=== PATIENT | male | born 1965 | race Caucasian/White ===

== ENCOUNTER 2016-09-12 19:12 | Emergency (ER) | payer OTHER ==
[2016-09-12 19:19] VITALS: BP 157/80; PULSE 82; TEMP 97.3; BMI 30.2
[2016-09-12] MEDS ORDERED: KETOROLAC TROMETHAMINE 60 MG/2 ML VIAL IM ONE (19:40)
[2016-09-12] MEDS ORDERED: KETOROLAC TROMETHAMINE 60 MG/2 ML VIAL ONE (19:55)
--- NOTE | 2016-09-12 21:17 | PDOC ---
History of Present Illness - General Chief Complaint: Pain, Acute Stated Complaint: RT SHOULDER PAIN Time Seen by Provider: 09/12/16 19:31 History Source: Patient Exam Limitations: No Limitations - History of Present Illness Initial Comments: 09/12/16 21:12 reoccuring pain right shoulder with limited ROM; no trauma Occurred: reports: last week Past History - Past Medical History Allergies/Adverse Reactions: Allergies Allergy/AdvReac Type Severity Reaction Status Date / Time shellfish derived Allergy Intermediate Swelling Verified 09/12/16 19:19 almond oil Allergy Verified 09/12/16 19:19 blackwood flavor Allergy Verified 09/12/16 19:19 Home Medications: Ambulatory Orders Metformin HCl [Glucophage] 1,000 mg PO BID 08/19/15 CVA: Yes (2 strokes) Diabetes: Yes HTN: Yes Hypercholesterolemia: Yes - Immunization History Immunization Up to Date: Yes - Psycho/Social/Smoking Cessation Hx Anxiety: No Suicidal Ideation: No Smoking Status: No Smoking History: Never smoked Have you smoked in the past 12 months: No Number of Cigarettes Smoked Daily: 0 Hx Alcohol Use: No Drug/Substance Use Hx: No Substance Use Type: None Review of Systems - Review of Systems Constitutional: No: Symptoms Reported HEENTM: No: Symptoms Reported Respiratory: No: Symptoms reported Musculoskeletal: Yes: Joint Pain, Muscle Pain, Neck Pain, Joint Stiffness. No: Joint Swelling Integumentary: No: Symptoms Reported, Pruritus, Rash Neurological: No: Symptoms reported *Physical Exam - Vital Signs Last Vital Signs Temp Pulse Resp BP Pulse Ox 97.3 F L 82 20 157/80 99 09/12/16 19:16 09/12/16 19:16 09/12/16 19:16 09/12/16 19:16 09/12/16 19:16 - Physical Exam General Appearance: Yes: Appropriately Dressed. No: Apparent Distress HEENT: positive: TMs Normal, Pharynx Normal Neck: positive: Tender, Tender lateral (right lateral neck medial shoulder). negative: Tender midline Respiratory/Chest: positive: Lungs Clear. negative: Chest Tender Cardiovascular: negative: Regular Rhythm Musculoskeletal: positive: Muscle Spasm (right upper back; limited rom right shoulder with proximal humerus tenderness), Other Integumentary: negative: Erythema, Other ED Treatment Course - RADIOLOGY Radiology Studies Ordered: Category Date Time Status SHOULDER-RIGHT [RAD] Stat Radiology 09/12/16 19:38 Completed - Medications Given in the ED: ED Medications Discontinued Medications Generic Name Dose Route Start Last Admin Trade Name Suzanne PRN Reason Stop Dose Admin Ketorolac Tromethamine 60 mg 09/12/16 19:40 09/12/16 19:58 Toradol Injection - IM 09/12/16 19:41 60 mg ONCE ONE Administration Medical Decision Making - Medical Decision Making 09/12/16 21:15 feeling only slightly better post toradol; pt driving will treat with flexeril and naprosyn at home with ortho follow up *DC/Admit/Observation/Transfer Diagnosis at time of Disposition: Chronic shoulder pain Qualifiers: Laterality: right Qualified Code(s): M25.511 - Pain in right shoulder; G89.29 - Other chronic pain Cervical strain, acute Qualifiers: Encounter type: initial encounter Qualified Code(s): S16.1XXA - Strain of muscle, fascia and tendon at neck level, initial encounter - Discharge Dispostion Disposition: HOME Condition at time of disposition: Stable Admit: No - Referrals Referrals: Ranjith Thomas MD [Primary Care Provider] - Elmer Pierre MD [Staff Physician] - - Patient Instructions Additional Instructions: please call and follow up with dr pierre next week
== END 2016-09-12 21:21 | disposition home or self-care (01) ==
LOC: JERFT 19:12
PROC: 3E0233Z Introduction of Anti-inflammatory into Muscle, Percutaneous Approach (ICD-10-PCS; principal; 2016-09-12)
DX: S16.1XXA Strain of muscle, fascia and tendon at neck level, initial encounter (principal); M25.511 Pain in right shoulder; G89.29 Other chronic pain; I10 Essential (primary) hypertension; E11.9 Type 2 diabetes mellitus without complications; E78.00 Pure hypercholesterolemia, unspecified; Z86.73 Personal history of transient ischemic attack (TIA), and cerebral infarction without residual deficits; Z79.84 Long term (current) use of oral hypoglycemic drugs; X58.XXXA Exposure to other specified factors, initial encounter; Y93.9 Activity, unspecified; Y92.9 Unspecified place or not applicable
CPT/HCPCS: 73030-TC-RT; 96372; 99281-25

== ENCOUNTER 2016-11-04 17:02 | Inpatient (IN) | payer OTHER ==
[2016-11-04 17:11] VITALS: BMI 30.2
--- NOTE | 2016-11-04 17:20 | PDOC ---
History of Present Illness <GurmeetCate Nicole - Last Filed: 11/04/16 18:49> - General History Source: Patient, Family Exam Limitations: No Limitations - History of Present Illness Initial Comments: 11/04/16 17:50 The patient is a 51 year old male presenting with his son, with a significant past medical history of CVA (x2), diabetes, peripheral neuropathy, HTN and HLD, who presents to the emergency department with stroke like symptoms at 5:07pm. He notes that 40 minutes ago he started experiencing tongue numbness mostly on the left side and left lower extremity weakness. He states that he does have peripheral neuropathy and experiences weakness but not this severity. He reports that he took a couple of vitamins prior to the symptoms starting. He notes that he is having difficulty walking. The patient denies chest pain, shortness of breath, headache and dizziness. Allergies: Shellfish, almond oil and blackwood flavor Past surgical history: None reported Social history: No alcohol, tobacco or drug use reported <Alexandr Andrews - Last Filed: 11/04/16 19:41> - General Chief Complaint: CVA/TIA Stated Complaint: NUMBNESS Time Seen by Provider: 11/04/16 17:20 Past History - Past Medical History CVA: Yes (2 strokes) Diabetes: Yes HTN: Yes Hypercholesterolemia: Yes - Immunization History Immunization Up to Date: Yes - Psycho/Social/Smoking Cessation Hx Anxiety: No Suicidal Ideation: No Smoking Status: No Smoking History: Never smoked Have you smoked in the past 12 months: No Number of Cigarettes Smoked Daily: 0 Hx Alcohol Use: No Drug/Substance Use Hx: No Substance Use Type: None <GurmeetCatemoise Rivera - Last Filed: 11/04/16 18:49> <Alexandr Andrews - Last Filed: 11/04/16 19:41> - Past Medical History Allergies/Adverse Reactions: Allergies Allergy/AdvReac Type Severity Reaction Status Date / Time shellfish derived Allergy Intermediate Swelling Verified 11/04/16 17:06 almond oil Allergy Verified 11/04/16 17:06 blackwood flavor Allergy Verified 11/04/16 17:06 Home Medications: Ambulatory Orders Metformin HCl [Glucophage] 500 mg PO BID 08/19/15 Review of Systems - Review of Systems Able to Perform ROS?: Yes Comments:: 11/04/16 17:51 GENERAL/CONSTITUTIONAL: No fever or chills. No weakness. HEAD, EYES, EARS, NOSE AND THROAT: No change in vision. No ear pain or discharge. No sore throat. CARDIOVASCULAR: No chest pain or shortness of breath RESPIRATORY: No cough, wheezing, or hemoptysis. GASTROINTESTINAL: No nausea, vomiting, diarrhea or constipation. GENITOURINARY: No dysuria, frequency, or change in urination. MUSCULOSKELETAL: No joint or muscle swelling or pain. No neck or back pain. SKIN: No rash NEUROLOGIC: +Tongue numbness and left sided weakness mostly on the lower extremity. No headache, vertigo, loss of consciousness. ENDOCRINE: No increased thirst. No abnormal weight change HEMATOLOGIC/LYMPHATIC: No anemia, easy bleeding, or history of blood clots. ALLERGIC/IMMUNOLOGIC: No hives or skin allergy. <Alexandr Andrews - Last Filed: 11/04/16 19:41> *Physical Exam - Vital Signs Last Vital Signs Temp Pulse Resp BP Pulse Ox 97.4 F L 100 H 19 196/111 97 11/04/16 17:06 11/04/16 17:06 11/04/16 17:06 11/04/16 17:06 11/04/16 17:06 <Cate Levi - Last Filed: 11/04/16 18:49> - Vital Signs Last Vital Signs Temp Pulse Resp BP Pulse Ox 97.4 F L 100 H 19 196/111 97 11/04/16 17:06 11/04/16 17:06 11/04/16 17:06 11/04/16 17:06 11/04/16 17:06 - Physical Exam Comments: 11/04/16 17:51 GENERAL: Awake, alert, and fully oriented, in no acute distress HEAD: No signs of trauma, normocephalic, atraumatic EYES: PERRLA, EOMI, sclera anicteric, conjunctiva clear ENT: Auricles normal inspection, hearing grossly normal, nares patent, oropharynx clear without exudates. Moist mucosa NECK: Normal ROM, supple, no lymphadenopathy, JVD, or masses LUNGS: No distress, speaks full sentences, clear to auscultation bilaterally HEART: Regular rate and rhythm, normal S1 and S2, no murmurs, rubs or gallops, peripheral pulses normal and equal bilaterally. ABDOMEN: Soft, nontender, normoactive bowel sounds. No guarding, no rebound. No masses EXTREMITIES: Normal inspection, Normal range of motion, no edema. No clubbing or cyanosis. NEUROLOGICAL: Cranial nerves II through XII grossly intact. Normal speech. Referred to NIHSS. SKIN: Warm, Dry, normal turgor, no rashes or lesions noted. <DarrylAlexandr Tere - Last Filed: 11/04/16 19:41> NIH Stroke Scale - Last Known Well Date/Time & Onset Date Last Known Well: 11/04/16 Time Last Known Well: 16:25 - Initial Evaluation Level of consciousness: Alert Ask patient the month and their age: Answers both correctly Ask patient to open & close eyes; make fist and let go: Obeys both correctly Best gaze (horizontal eye movement): Normal Visual field testing: No visual field loss Facial paresis (Show teeth/raise eyebrows/close eyes tight): Normal symmetrical movement Motor Function: Left Arm: Normal Motor Function: Right Arm: Normal (extends arm 90 (or 45) degrees for 10 seconds without drift Motor Function: Left Leg: Normal (extends leg 30 degrees for 5 seconds without drift) Motor Function: Right Leg: Normal (extends leg 30 degrees for 5 seconds without drift) Limb Ataxia: No ataxia Sensory(Use pinprick test arms,legs,trunk,face/side to side): Normal Best language (Describe picture, name items, read sentences): No Aphasia Dysarthria (read several words): Normal articulation Extinction and Inattention: No abnormality - Total Score NIH Stroke Scale Score: 0 <Cate Levi - Last Filed: 11/04/16 18:49> tPA Exclusion Checklist 0-3hr - Time Elapsed Date last known well: 11/04/16 Time last known well: 16:25 Elaspsed time: Day(s) and 2 Hour(s) and 24 Minutes - Thrombolytic Therapy Candidate Is the patient eligible for Thrombolytic Therapy?: No - Exclusion Criteria 0-3hr SBP greater than 185 or DBP greater than 110mmHg despite tx: No Recent IC/spinal surgery,head trauma or stroke w/in last 3mo: No Hx of previous IC hemorrhage, IC neoplasm, AVM or aneurysm: No Active internal bleeding: No Blding diathesis(low plt ct, inc PTT,INR>1.7 or use of NOAC): No Symptoms suggest subarachnoid hemorrhage: No CT demonstrates multilobar infarct(>1/3 cerebral hemiphere): No Arterial puncture at noncompressible site in previous 7 days: No Blood glucose concentration less than 50mg/dL (2.7mmol/L): No - Relative Exclusion Criteria 0-3h Life expectancy <1yr/severe co-morbid illness/ZONING ASSISTANT on admit: No : No Patient/family refused: No Rapid improvement: Yes Stroke severity too mild: Yes Recent acute TX (w/in previous 3 months): No Seizure at onset with postictal residual neuro impairments: No Major surgery or serious trauma w/in previous 14 days: No Recent GI or hemorrhage (w/in previous 21 days): No - Ineligibility reason(s) Reasons No tPA given: See reason(s) noted above (symptoms rapidly resolved) <Cate Levi - Last Filed: 11/04/16 18:49> Heart Score/ECG Review #1 ECG reviewed & interpreted by me at: 17:52 11/04/16 17:31 Ventricular rate: 97 bpm Normal sinus rhythm Possible left atrial enlargement <Alexandr Andrews - Last Filed: 11/04/16 19:41> Critical Care Time/MDM Note - Medical Decision Making Note: 11/04/16 17:[address] Reviewed by: Dr. Malena Arndt Impression: No prior exams for comparison. No acute brain parenchyal abnoramlity. No hemorrhage, mass or acute territorial infarct. On re-examination at 5:50pm the patient had regained sensation and strength in his left side. And only complaints of slight residual numbness on the left side of his face. Dr. Layne was called regarding the patient at 6:00pm and again at 6:46pm Dr. Layne was consulted regarding the patient at 6:22pm [phone] Documentation prepared by Alexandr Andrews, acting as bilingual medical receptionist for Cate Levi MD <Alexandr Andrews - Last Filed: 11/04/16 19:41> Discharge Disposition - Discharge Dispostion Admit: Yes <Cate Levi - Last Filed: 11/04/16 18:49> <Alexandr Andrews - Last Filed: 11/04/16 19:41> - Diagnosis Cerebrovascular accident (CVA) Qualifiers: CVA mechanism: unspecified Qualified Code(s): I63.9 - Cerebral infarction, unspecified Hypertension Qualifiers: Hypertension type: essential hypertension Qualified Code(s): I10 - Essential ( primary) hypertension Hyperlipidemia Qualifiers: Hyperlipidemia type: unspecified Qualified Code(s): E78.5 - Hyperlipidemia, unspecified
[2016-11-04 17:29] LABS: BASOPHIL 0.3 % (0-2.0); EOSINOPHIL 5.8 % (0-4.5); MCH 29.6 pg (25.7-33.7); MCHC 34.3 g/dl (32.0-35.9); MEAN CELL VOLUME 86.3 fl (80-96); MEAN PLT VOLUME 8.4 fl (7.5-11.1); NEUTROPHILS 51.4 % (42.8-82.8); PLATELET COUNT 232 K/MM3 (134-434); WHITE BLOOD COUNT 8.3 K/mm3 (4.0-10.0)
[2016-11-04 17:41] LABS: INR 0.88 (0.82-1.09); PROTHROMBIN TIME (PATIENT) 9.6 SEC (9.98-11.88)
[2016-11-04 17:57] LABS: ALBUMIN 3.9 g/dl (3.4-5.0); ANION GAP 7 (8-16); BILIRUBIN,TOTAL 0.2 mg/dL (0.2-1.0); CALCIUM 8.8 mg/dL (8.5-10.1); CHOLESTEROL 269 mg/dL (50-200); CO2 26 mmol/L (21-32); CREATININE 1.1 mg/dL (0.7-1.3); GLUCOSE,RANDOM 138 mg/dL (74-106); LDL CHOLESTEROL (ONLY SJRH) 178 mg/dL (5-100); SGOT/AST 16 U/L (15-37); SGPT/ALT 25 U/L (12-78); TOT PROT 7.9 g/dl (6.4-8.2)
[2016-11-04 17:58] LABS: ALK PHOS 53 U/L (45-117); TROPONIN I 0.05 ng/ml (0.00-0.05)
[2016-11-04] MEDS ORDERED: ASPIRIN 81 MG CHEWABLE TABLETS ONE (18:09)
[2016-11-04] MEDS ORDERED: ASPIRIN 325 MG TABLET PO ONE (18:11)
[2016-11-04] MEDS ORDERED: LISINOPRIL 10 MG TABLET (FP) PO ONE (18:15)
[2016-11-04] MEDS ORDERED: LISINOPRIL 5 MG TABLET (FP) ONE (18:26)
--- NOTE | 2016-11-04 19:20 | HP ---
CHIEF COMPLAINT: Tongue, L-sided facial numbness, L-sided weakness PCP: Dr. Ranjith Thomas HISTORY OF PRESENT ILLNESS: This is a 51 y/o male with a past medical history of CVA x2 (04/2016, 2011, no residual), Hypertension, Hyperlipidemia, Diabetes Mellitus, Peripheral Neuropathy, Arthritis. Who presents to the emergency department with tongue, left facial numbness, and left sided weakness since 17:07 today. Patient reports after taking a new medication Vit B12, his tongue became numb with the numbness radiating to the left side of his face. He then reports, the left side of his body became numb, and that he could not move his left leg. ER course was notable for: (1) BP 180/110~174/91, Lisionpril given po (2) CT head- No intracranial pathology, mass or lesion (3) Recent Travel: None PAST MEDICAL HISTORY: CVA x2 HTN HLD DM Arthritis PAST SURGICAL HISTORY: L- knee Cyst removal left leg Social History: Smoking: Never Alcohol: Social- Beers x2 Drugs: None Family History: Father: [place], age 94 Mother: DM, Arthritis Sister: DM Brother: DM Allergies shellfish derived Allergy (Intermediate, Verified 11/04/16 17:06) Swelling almond oil Allergy (Verified 11/04/16 17:06) blackwood flavor Allergy (Verified 11/04/16 17:06) HOME MEDICATIONS: Home Medications Medication Instructions Recorded Metformin HCl [Glucophage] 500 mg PO BID 08/19/15 REVIEW OF SYSTEMS CONSTITUTIONAL: Absent: fever, chills, diaphoresis, generalized weakness, malaise, loss of appetite, weight change HEENT: Tongue numbness, left facial numbness Absent: rhinorrhea, nasal congestion, throat pain, throat swelling, difficulty swallowing, mouth swelling, ear pain, eye pain, visual changes CARDIOVASCULAR: Absent: chest pain, syncope, palpitations, irregular heart rate, lightheadedness , peripheral edema RESPIRATORY: Absent: cough, shortness of breath, dyspnea with exertion, orthopnea, wheezing, stridor, hemoptysis GASTROINTESTINAL: Absent: abdominal pain, abdominal distension, nausea, vomiting, diarrhea, constipation, melena, hematochezia GENITOURINARY: Absent: dysuria, frequency, urgency, hesitancy, hematuria, flank pain, genital pain MUSCULOSKELETAL: Absent: myalgia, arthralgia, joint swelling, back pain, neck pain SKIN: Absent: rash, itching, pallor HEMATOLOGIC/IMMUNOLOGIC: Absent: easy bleeding, easy bruising, lymphadenopathy, frequent infections ENDOCRINE: Absent: unexplained weight gain, unexplained weight loss, heat intolerance, cold intolerance NEUROLOGIC: focal weakness or paresthesias Absent: headache, dizziness, unsteady gait, seizure, mental status changes, bladder or bowel incontinence PSYCHIATRIC: Absent: anxiety, depression, suicidal or homicidal ideation, hallucinations. PHYSICAL EXAMINATION GENERAL: Awake, alert, and fully oriented, in no acute distress. HEAD: Normal with no signs of trauma. EYES: Pupils equal, round and reactive to light, extraocular movements intact, sclera anicteric, conjunctiva clear. No lid lag. EARS, NOSE, THROAT: Ears normal, nares patent, oropharynx clear without exudates. Moist mucous membranes. NECK: Normal range of motion, supple without lymphadenopathy, JVD, or masses. LUNGS: Breath sounds equal, clear to auscultation bilaterally. No wheezes, and no crackles. No accessory muscle use. HEART: Regular rate and rhythm, normal S1 and S2 without murmur, rub or gallop. ABDOMEN: Soft, nontender, not distended, normoactive bowel sounds, no guarding, no rebound, no masses. No hepatomegaly or splenomegaly. MUSCULOSKELETAL: Normal range of motion at all joints. No bony deformities or tenderness. No CVA tenderness. UPPER EXTREMITIES: 2+ pulses, warm, well-perfused. No cyanosis. No clubbing. No peripheral edema. LOWER EXTREMITIES: 2+ pulses, warm, well-perfused. No calf tenderness. No peripheral edema. NEUROLOGICAL: Cranial nerves II-XII intact. Normal speech. Gait not observed. PSYCHIATRIC: Cooperative. Good eye contact. Appropriate mood and affect. SKIN: Warm, dry, normal turgor, no rashes or lesions noted, normal capillary refill. Laboratory Results - last 24 hr 11/04/16 11/04/16 11/04/16 17:20 17:20 17:20 WBC 8.3 D RBC 4.90 Hgb 14.5 Hct 42.3 MCV 86.3 MCHC 34.3 RDW 14.0 Plt Count 232 MPV 8.4 Neutrophils % 51.4 Lymphocytes % 35.1 Monocytes % 7.4 Eosinophils % 5.8 H Basophils % 0.3 INR 0.88 Sodium 138 Potassium 4.2 Chloride 105 Carbon Dioxide 26 Anion Gap 7 L BUN 14 Creatinine 1.1 Creat Clearance w eGFR > 60 Random Glucose 138 H D Calcium 8.8 Total Bilirubin 0.2 D AST 16 D ALT 25 D Alkaline Phosphatase 53 Creatine Kinase 217 D Creatine Kinase Index 1.2 CK-MB (CK-2) 2.656 CK-MB (CK-2) Rel Index Troponin I 0.05 D Total Protein 7.9 Albumin 3.9 Triglycerides 171 H D Cholesterol 269 H Total LDL Cholesterol 178 H HDL Cholesterol 62 H D Blood Type Antibody Screen 11/04/16 11/04/16 17:20 17:20 WBC RBC Hgb Hct MCV MCHC RDW Plt Count MPV Neutrophils % Lymphocytes % Monocytes % Eosinophils % Basophils % INR Sodium Potassium Chloride Carbon Dioxide Anion Gap BUN Creatinine Creat Clearance w eGFR Random Glucose Calcium Total Bilirubin AST ALT Alkaline Phosphatase Creatine Kinase Creatine Kinase Index CK-MB (CK-2) CK-MB (CK-2) Rel Index Cancelled Troponin I Total Protein Albumin Triglycerides Cholesterol Total LDL Cholesterol HDL Cholesterol Blood Type A POSITIVE Antibody Screen Negative 11/04/16 17:[address] Reviewed by: Dr. Malena Arndt Impression: No prior exams for comparison. No acute brain parenchyal abnoramlity. No hemorrhage, mass or acute territorial infarct. Heart Score/ECG Review #1 11/04/16 17:31 Ventricular rate: 97 bpm Normal sinus rhythm Possible left atrial enlargement ASSESSMENT/PLAN: This is a 51 y/o male with a PMHx of: CVA x2, HTN, HLD, DM. Who presents to the ED with tongue, left facial numbness, and left sided weakness. Admitted for CVA for further evaluation of their emergent condition. Plan: 1. Neuro: CVA - Hx CVA x2 - NIHHS 0 - Appreciate Neuro Consult - Asa, Lisinopril given in ED - Speech/Swallow eval - Continue Asa, Lisinopril, Statin - Carotid Doppler in am - Consider Brain MRI - Neuro Checks - Fall Precautions - PT 2. Cardio: HTN/HLD - Uncontrolled - Monitor BP - Continue Lisinopril, Statin - EKG- reviewed - Maintain BP 150/80 3. Endocrine: Diabetes Mellitus - Controlled - BGMs - ISS - Hgb A1C in am - Hold Metformin 4. FEN - PO Fluids tolerated - Replete lytes prn - Low Na, 1800 ADA Diet 5. DVT Prophylaxis - SCDs - Hold ACs for now, 2/2 r/o CVA Code Status: Full Code Dispo: Requries Inpatient care Problem List - Problem (1) Cerebrovascular accident (CVA) Code(s): I63.9 - CEREBRAL INFARCTION, UNSPECIFIED Qualifiers: CVA mechanism: unspecified Qualified Code(s): I63.9 - Cerebral infarction, unspecified (2) Hypertension Code(s): I10 - ESSENTIAL (PRIMARY) HYPERTENSION Qualifiers: Hypertension type: essential hypertension Qualified Code(s): I10 - Essential (primary) hypertension (3) Hyperlipidemia Code(s): E78.5 - HYPERLIPIDEMIA, UNSPECIFIED Qualifiers: Hyperlipidemia type: unspecified Qualified Code(s): E78.5 - Hyperlipidemia, unspecified (4) Diabetes mellitus Code(s): E11.9 - TYPE 2 DIABETES MELLITUS WITHOUT COMPLICATIONS (5) DVT prophylaxis Code(s): [id number] - Visit type - Emergency Visit Emergency Visit: Yes ED Registration Date: 11/04/16 Care time: The patient presented to the Emergency Department on the above date and was hospitalized for further evaluation of their emergent condition. - New Patient This patient is new to me today: Yes Date on this admission: 11/04/16 - Critical Care Critical Care patient: No
[2016-11-04] MEDS ORDERED: ASPIRIN 81 MG CHEWABLE TABLETS PO ONE (20:14)
[2016-11-04] MEDS: INSULIN SLIDING SCALE (NOVOLOG) 1 VIAL SQ SCH (21:59)
[2016-11-04] MEDS ORDERED: ATORVASTATIN CA 10 MG TABLET (FP) PO SCH (22:00)
[2016-11-05] MEDS: INSULIN SLIDING SCALE (NOVOLOG) 1 VIAL SQ SCH ×4 (06:46→21:12)
[2016-11-05 07:38] LABS: BASOPHIL 1.2 % (0-2.0); EOSINOPHIL 6.1 % (0-4.5); MCH 29.5 pg (25.7-33.7); MEAN CELL VOLUME 86.8 fl (80-96); MEAN PLT VOLUME 8.7 fl (7.5-11.1); NEUTROPHILS 54.8 % (42.8-82.8); PLATELET COUNT 201 K/MM3 (134-434); RDW 13.9 % (11.9-15.9); WHITE BLOOD COUNT 8.3 K/mm3 (4.0-10.0)
[2016-11-05 08:02] LABS: CALCIUM 8.2 mg/dL (8.5-10.1); CREATININE 0.9 mg/dL (0.7-1.3)
[2016-11-05] MEDS ORDERED: PT OWN MED DRAWER 7, Y5N ONE (09:09)
[2016-11-05] MEDS: LISINOPRIL 20 MG TABLET (FP) PO SCH (09:10)
[2016-11-05] MEDS: ASPIRIN COATED 81 MG TABLET.EC PO SCH (09:10)
--- NOTE | 2016-11-05 10:19 | CONSULT ---
Admitting History and Physical - Primary Care Physician PCP: Paula Correia - Admission History of Present Illness: Per EMR: "HISTORY OF PRESENT ILLNESS: This is a 51 y/o male with a past medical history of CVA x2 (04/2016, 2011, no residual), Hypertension, Hyperlipidemia, Diabetes Mellitus, Peripheral Neuropathy, Arthritis. Who presents to the emergency department with tongue, left facial numbness, and left sided weakness since 17:07 today. Patient reports after taking a new medication Vit B12, his tongue became numb with the numbness radiating to the left side of his face. He then reports, the left side of his body became numb, and that he could not move his left leg. ER course was notable for: (1) BP 180/110~174/91, Lisionpril given po (2) CT head- No intracranial pathology, mass or lesion" Pt reported improvement in symptoms.He is now able to ambulate. H/o CVA x 2. He was "Blind for 1.5 years' and suddenly vision returned. 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 Other Social History: reports excellent family support History - Admission Reason For Visit: CVA/TIA/HYPERTENSION - Diagnostics X-ray: Report Reviewed CT Scan: Report Reviewed - General Mental Status: Alert and Oriented, Awake and Alert, Able to Follow Commands Attention: Intact Ability to Follow Directions: Excellent Head/Neck Control: WFL - Hearing Hearing: Normal Hearing Aide: No With Patient: No Speech Evaluation - Communication Primary Language: ROMANIAN Communication: Yes: Within Normal Limits - Speech Production Able to Make Needs Known: Yes: WNL Intelligibility: Yes: Mildly Impaired - Speech Characteristics Voice Loudness: Mildly Soft/Quiet Voice Pitch: Yes: Normal Voice Phonatory-based Quality: Yes: Dysphonia (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 Vocal folds never seen visualized by ENT. 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 to be a jones.) Nasal Resonance: Normal Articulation: Yes: Precise Rate of Speech: Intact - Language/Auditory Comprehension Follows: Yes: 2 Stage Simple Commands - Language/Verbal Expression Able to Respond to Simple Queries: Yes: WNL Able to Communicate Wants and Needs: Yes: WNL Functional Communication Status: Yes: WNL - Memory/Perception roasterman Memory: Yes: WNL Short Term Memory: Yes: WNL - Swallow Evaluation/Bedside Assessment Current Nutritional Intake: Regular, Thin Liquids Oral Secretions: Yes: WFL Dentition: Yes: Adequate Facial Symmetry at Rest: Symmetrical Facial Symmetry on Retraction: Symmetrical Facial Movement: Controlled Sensation: Normal (returned to normal last night) Against Resistance Opening: Normal Against Resistance Closing: Normal Pucker Lips: Normal Smile: Normal Lingual Movement: Normal, Symmetric Lingual Speed of Movement: Normal Lingual Movement Strgth Against Opposition: Normal Lingual Movement Characteristics: Normal Velopharyngeal Movement: Normal Laryngeal Elevation: WFL Laryngeal Movement: Able to Palpate Rate of Intake: WFL Bolus Size: WFL Labial Seal: WFL Chewing: WFL Oral Prep Time: WFL A-P Transit: WFL Pocketing: None Timing of Swallow: WFL Coughing/Throat Clear: No Change in Voice: No Recommendations - Speech Evaluation, Impression/Plan Impression: Language/swallowing intact. No dysarthria. Moderate dysphonia at present. 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 Vocal folds never seen visualized by ENT. 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 h/o ETOH abuse. Reports drinks a "6 pack on Fridays now but no more the rest of the week." He denies dysphagia and heartburn. - Dysphagia Impressions/Plan Swallowing Skills: WFL *Silent aspiration: cannot be R/O at bedside Recommendations: ENT Consult (Pt counseled to se ENT as out pt to visualize vocal cords, r/o polyps/nodules,LPR,pathology.) - Recommendations Diet Consistency: Regular Medication Administration: Whole with water Liquids: Thin Liquids
--- NOTE | 2016-11-05 11:31 | CONSULT ---
Consult Consult Specialty:: Neurology Reason for Consultation:: Left side numbness - History of Present Illness History of Present Illness: 51 year old man with history of multiple ischemic infarcts (2011, 2015, with residual peripheral vision impairment), hypertension, hyperlipidemia, diabetes, neuropathy, presented to the ED with left face, arm and leg numbness and weakness. As per patient, he follows with Dr. Cortez as an outpatient for history of stroke. He was advised to remain on aspirin daily, however the patient admits that he ran out of aspirin recently. Denies smoking. Family history of stroke in father. States he has had blood workup in past for stroke- unclear if stroke in young workup completed. 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 Home Medications - Allergies Allergies/Adverse Reactions: Allergies Allergy/AdvReac Type Severity Reaction Status Date / Time shellfish derived Allergy Intermediate Swelling Verified 11/04/16 17:06 almond oil Allergy Verified 11/04/16 17:06 blackwood flavor Allergy Verified 11/04/16 17:06 - Home Medications Home Medications: Ambulatory Orders Metformin HCl [Glucophage] 500 mg PO BID 08/19/15 Lisinopril [Prinivil] 20 mg PO DAILY 11/04/16 Naproxen [Naprosyn -] 500 mg PO BID 11/04/16 Family Disease History - Family Disease History Family Disease History: Other: Father (stroke) Review of Systems - Review of Systems Neurological: reports: Numbness, Pre-Existing Deficit, Weakness Physical Exam Vital Signs: Vital Signs Temperature 98.0 F 11/05/16 06:00 Pulse Rate 77 11/05/16 06:00 Respiratory Rate 20 11/05/16 06:00 Blood Pressure 135/80 11/05/16 06:00 O2 Sat by Pulse Oximetry (%) 95 11/04/16 21:00 Labs: CBC, BMP 11/05/16 05:35 11/05/16 05:35 Assessment/Plan 51 year old man with history of multiple ischemic infarcts (2012, 2016, with residual peripheral vision impairement), hypertension, hyperlipidemia, diabetes , neuropathy, presented to the ED with left face, arm and leg numbness and weakness. As per patient, he follows with Dr. Cortez as an outpatient for history of stroke. He was advised to remain on aspirin daily, however the patient admits that he ran out of aspirin recently. Denies smoking. Family history of stroke in father. States he has had blood workup in past for stroke- unclear if stroke in young workup completed. Left side weakness, resolved NIHSS 1 - peripheral visual field loss- chronic Need to rule out stroke CT head no acute findings MRI brain without contrast pending Aspirin 325 mg daily Continue atorvastatin Echocardiogram Carotid doppler Consider stroke in young workup as outpatient Further recommendations pending MRI brain
--- NOTE | 2016-11-05 15:09 | PN ---
Physical Exam: SUBJECTIVE: Patient seen and examined. Pt with no complaints on exam. Symptoms completely resolved. No further numbness/tingling in tongue or face, no left sided weakness. OBJECTIVE: Vital Signs - 24 hr 3 11/04/16 11/04/16 11/04/16 17:06 18:00 18:33 Temperature 97.4 F L Pulse Rate 100 H Pulse Rate [ 94 H 107 H Radial] Respiratory 19 20 20 Rate Blood Pressure 196/111 Blood Pressure 174/104 180/107 [Left Arm] O2 Sat by Pulse 97 100 98 Oximetry (%) 3 11/04/16 11/04/16 11/04/16 19:10 20:35 21:00 Temperature 98.5 F Pulse Rate 88 Pulse Rate [ Radial] Respiratory 20 20 Rate Blood Pressure 145/88 Blood Pressure [Left Arm] O2 Sat by Pulse 95 98 95 Oximetry (%) 3 11/05/16 11/05/16 11/05/16 02:00 06:00 14:00 Temperature 98.5 F 98.0 F 98 F Pulse Rate 80 77 87 Pulse Rate [ Radial] Respiratory 20 20 20 Rate Blood Pressure 134/74 135/80 151/101 Blood Pressure [Left Arm] O2 Sat by Pulse Oximetry (%) GENERAL: The patient is awake, alert, and fully oriented, in no acute distress. HEAD: Normal with no signs of trauma. EYES: PERRL, extraocular movements intact, sclera anicteric, conjunctiva clear. No ptosis. ENT: Ears normal, nares patent, oropharynx clear without exudates, moist mucous membranes. NECK: Trachea midline, full range of motion, supple. LUNGS: Breath sounds equal, clear to auscultation bilaterally, no wheezes, no crackles, no accessory muscle use. HEART: Regular rate and rhythm, S1, S2 without murmur, rub or gallop. ABDOMEN: Soft, nontender, nondistended, normoactive bowel sounds, no guarding, no rebound, no hepatosplenomegaly, no masses. EXTREMITIES: 2+ pulses, warm, well-perfused, no edema. muscle strength equal bilaterally upper and lower NEUROLOGICAL: Cranial nerves II through XII grossly intact. Normal speech, gait not observed. PSYCH: Normal mood, normal affect. SKIN: Warm, dry, normal turgor, no rashes or lesions noted Laboratory Results - last 24 hr 3 11/04/16 11/05/16 11/05/16 21:57 05:35 05:35 WBC 8.3 RBC 4.34 Hgb 12.8 D Hct 37.6 MCV 86.8 MCHC 34.0 RDW 13.9 Plt Count 201 MPV 8.7 Neutrophils % 54.8 Lymphocytes % 31.5 Monocytes % 6.4 Eosinophils % 6.1 H Basophils % 1.2 D Sodium 139 Potassium 3.9 Chloride 103 Carbon Dioxide 27 Anion Gap 9 BUN 14 Creatinine 0.9 POC Glucometer 144 Random Glucose 141 H Hemoglobin A1c % Calcium 8.2 L 3 11/05/16 11/05/16 11/05/16 05:35 06:28 12:01 WBC RBC Hgb Hct MCV MCHC RDW Plt Count MPV Neutrophils % Lymphocytes % Monocytes % Eosinophils % Basophils % Sodium Potassium Chloride Carbon Dioxide Anion Gap BUN Creatinine POC Glucometer 141 165 Random Glucose Hemoglobin A1c % 7.8 H D Calcium Active Medications 3 Generic Name Dose Route Start Last Admin Trade Name Freq PRN Reason Stop Dose Admin Aspirin 81 mg 11/05/16 10:00 11/05/16 09:10 Ecotrin - PO 81 mg DAILY ANGELITA Administration Atorvastatin Calcium 10 mg 11/04/16 22:00 11/04/16 21:55 Lipitor - PO 10 mg HS ANGELITA Administration Insulin Aspart 1 vial 11/04/16 22:00 11/05/16 13:00 Novolog Vial Sliding Scale - SQ 2 units ACHS ANGELITA Administration Protocol Lisinopril 20 mg 11/05/16 10:00 11/05/16 09:10 Prinivil PO 20 mg DAILY ANGELITA Administration Carotid doppler: Impression There is no doppler evidence of a high-grade carotid artery stenosis. Patent vertebral arteries ASSESSMENT/PLAN: 51yM with a PMHx of: CVA x2, HTN, HLD, DM who presented to the ED with tongue, left facial numbness, and left sided weakness. Admitted for TIA/CVA workup. TIA - Hx CVA x2 - NIHHS 0 - Appreciate Neuro Consult - Asa, Lisinopril given in ED - Speech/Swallow eval with no overt aspiration, regular diet, thin liquids - Continue Asa, Lisinopril, Statin - carotid doppler with no stenosis - Brain MRI pending, DC home tomorrow if ok, and cleared by neurology HTN - BP stable on lisinopril, cont monitoring HLD - LDL 178 - statin started, will increase to 40mg Diabetes Mellitus - A1c 7.8, f/u with PCP for improved management as outpatient - hold metformin while inpatient - BGM ACHS with novolog SS coverage FEN - PO Fluids tolerated - Replete lytes prn, stable at present - Low Na, 1800 ADA Diet DVT Prophylaxis - low risk; expected LOS <48h, reassess if LOS exceeds same. Code Status: Full Code Dispo: Currently requires inpatient care for management of his emergent condition. Visit type - Emergency Visit Emergency Visit: Yes ED Registration Date: 11/04/16 Care time: The patient presented to the Emergency Department on the above date and was hospitalized for further evaluation of their emergent condition. - New Patient This patient is new to me today: Yes Date on this admission: 11/05/16 - Critical Care Critical Care patient: No
[2016-11-05] MEDS ORDERED: ATORVASTATIN CA 40 MG TABLET (FP) PO SCH (18:37)
[2016-11-05] MEDS ORDERED: INSULIN (NOVOLOG) ASPART 100 UNITS/ML 10ML VIAL ONE (21:11)
[2016-11-06] MEDS: INSULIN SLIDING SCALE (NOVOLOG) 1 VIAL SQ SCH ×2 (06:05→12:32)
[2016-11-06] MEDS: ASPIRIN COATED 81 MG TABLET.EC PO SCH (09:46)
[2016-11-06] MEDS: LISINOPRIL 20 MG TABLET (FP) PO SCH (09:46)
[2016-11-06] MEDS ORDERED: ASPIRIN COATED 81 MG TABLET.EC PO SCH (09:50)
[2016-11-06] MEDS ORDERED: ASPIRIN COATED 81 MG TABLET.EC PO ONE ×2 (09:57→10:24)
--- NOTE | 2016-11-06 10:05 | DS ---
Physical Exam: SUBJECTIVE: Patient seen and examined on tele. He says his LLE weakness is resolved completely. He does have chronic numbness. He also has no peripheral vision. OBJECTIVE: Vital Signs Period Temp Pulse Resp BP Sys/[place] Pulse Ox Last 24 Hr 97.3 F-98.2 F 74-87 17-20 135-156/74-101 97-97 PE Neuro: alert, awake, bitemporal hemianopsia - chronic HEENT: diminished vision Pulm: CTAB CV: s1 s2 rrr no mrg Abd: s nt nd +bs Ext: LLE numbness- chronic, b/l LE sensory 5/5 motor 5/5 Laboratory Results - last 24 hr 11/05/16 11/05/16 11/05/16 12:01 17:32 21:07 POC Glucometer 165 151 195 11/06/16 06:03 POC Glucometer 126 HOSPITAL COURSE: Date of Admission:11/04/16 Date of Discharge: 11/06/16 Minutes to complete discharge: 35 Discharge Summary Reason For Visit: CVA/TIA/HYPERTENSION Current Active Problems Cerebrovascular accident (CVA) (Acute) DVT prophylaxis (Acute) Diabetes mellitus (Acute) Hyperlipidemia (Acute) Hypertension (Acute) Hospital Course: Initial Hospital Course: Briefly, this 51 year old male with a past medical history of CVA x2 (2011, no residual), Hypertension, Hyperlipidemia, Diabetes Mellitus, Peripheral Neuropathy, Arthritis presented to the ED with tongue, left facial numbness, and left sided weakness since 17:07 the day of admission. Patient reported after taking a new medication Vit B12, his tongue became numb with the numbness radiating to the left side of his face. He then reports, the left side of his body became numb, and that he could not move his left leg. Imaging: Carotid doppler: doppler evidence of a high-grade carotid artery stenosis. Subsequent Hospital Course/Progress Note/Discharge Summary by a/p: Assessment: 51 year old male with a PMHx of: CVA x2, HTN, HLD, DM who presented to the ED with tongue, left facial numbness, and left sided weakness. Admitted for TIA/CVA workup. 1. Acute CVA - MRI 11/06 shows ~5mm non hemorrhagic acute lucnar infarct in R thalamus - Daily ASA 325mg - Start lipitor 40mg HS - ECHO show low normal LV - Will hold on starting metoprolol as pt states has asthma hx however no eval by pulm, will follow up with pulm before starting, cardiology Dr. Howell aware and agrees - Cardiology office follow up in 2 week 2. HTN - BP Stable, continue lisinopril 20mg daily 3. DM II, uncontrolled - A1c 7.8, f/u with PCP for improved management as outpatient, pt is very close to PCP he will follow up - Restart home metformin Dispo: - Home with above meds and plan - Pt aware and agrees to above plan Condition: Stable - Instructions Diet, Activity, Other Instructions: Please return to the ED for any new, persistent, or worsening symptoms. Follow up with your PCP in 1 week Take new medications as directed for your heart Follow up cardiology (referral enclosed) for continued management and work up of your heart function Referrals: Holden Le MD [Staff Physician] - Elías Guerrero MD [Staff Physician] - 1 Week (Follow up to r/o asthma vs cardiac related asthma, concern because would like to start you on a beta renan) Hammad Howell MD [Staff Physician] - 2 Weeks Ranjith Thomas MD [Primary Care Provider] - 1 Week (- Will need pulm evaluation for asthma, would like to start on bb due to low normal echo ) Disposition: HOME - Home Medications Comprehensive Discharge Medication List: Ambulatory Orders Metformin HCl [Glucophage] 500 mg PO BID 08/19/15 Lisinopril [Prinivil] 20 mg PO DAILY 11/04/16 Aspirin [ASA -] 325 mg PO DAILY #60 tablet 11/06/16 Atorvastatin Ca [Lipitor] 40 mg PO HS #30 tablet 11/06/16 Metoprolol Succinate [Toprol Xl -] 25 mg PO DAILY #30 tab.sr.24h 11/06/16 This patient is new to me today: Yes Date on this admission: 11/06/16 Emergency Visit: Yes ED Registration Date: 11/04/16 Care time: The patient presented to the Emergency Department on the above date and was hospitalized for further evaluation of their emergent condition. Critical Care patient: No - Discharge Referral Referred to [facility] No
[2016-11-06] MEDS ORDERED: METOPROLOL SUCCINATE 25 MG TAB.SR.24H (FP) PO SCH (10:15)
[2016-11-06] MEDS ORDERED: ASPIRIN COATED 81 MG TABLET.EC ONE ×2 (10:19→10:24)
--- NOTE | 2016-11-06 10:30 | CON.CARD ---
[id number] Present Illness Chief Complaint: Pt denies chest pain or dyspnea presently. but has had chest tightness and ZIMMERMAN in the recent past. Still feels weak in left leg History of Present Illness: The patient is a 51 year old male presenting with his son, with a significant past medical history of CVA (x2), diabetes, peripheral neuropathy, HTN and HLD, who presents to the emergency department with stroke like symptoms at 5:07pm. He notes that 40 minutes ago he started experiencing tongue numbness mostly on the left side and left lower extremity weakness. He states that he does have peripheral neuropathy and experiences weakness but not this severity. He reports that he took a couple of vitamins prior to the symptoms starting. He notes that he is having difficulty walking. The patient denies chest pain, shortness of breath, headache and dizziness. 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 Home Medications - Allergies Allergies/Adverse Reactions: Allergies Allergy/AdvReac Type Severity Reaction Status Date / Time almond oil Allergy Intermediate Swelling Verified 11/09/16 11:32 blackwood flavor Allergy Intermediate Swelling Verified 11/09/16 11:32 shellfish derived Allergy Intermediate Swelling Verified 11/09/16 11:32 - Home Medications Home Medications: Ambulatory Orders Metformin HCl [Glucophage] 500 mg PO BID 08/19/15 Lisinopril [Prinivil] 20 mg PO DAILY 11/04/16 Aspirin [ASA -] 325 mg PO DAILY #60 tablet 11/06/16 Atorvastatin Ca [Lipitor] 40 mg PO HS #30 tablet 11/06/16 Metoprolol Succinate [Toprol XL -] 25 mg PO DAILY #30 tab.sr.24h 11/08/16 Chlorthalidone [Hygroton -] 25 mg PO DAILY #30 tablet 11/09/16 Family Disease History - Family Disease History Family Disease History: Other: Father (stroke) Review of Systems - Review of Systems Constitutional: reports: Weakness Eyes: reports: Recent Change in Vision (CVA-->decreased vision (regained partially) ?06/2016) HENT: reports: No Symptoms Neck: reports: No Symptoms Cardiovascular: reports: Other (chest tightness on exertion at times) Respiratory: reports: No Symptoms Gastrointestinal: reports: No Symptoms Genitourinary: reports: No Symptoms Breasts: reports: No Symptoms Reported Musculoskeletal: reports: Muscle Pain, Muscle Weakness Integumentary: reports: No Symptoms Neurological: reports: Weakness Endocrine: reports: No Symptoms Hematology/Lymphatic: reports: No Symptoms Psychiatric: reports: Anxiety - Risk Factors Known Risk Factors: Yes: Age, Diabetes Mellitus, Gender, Hypercholesterolemia, Hypertension, Physical Inactivity, Prior IA /Emb Stroke, Smoking (former) Vital Signs: Vital Signs Temperature 97.3 F L 11/06/16 05:47 Pulse Rate 74 11/06/16 05:47 Respiratory Rate 17 11/06/16 05:47 Blood Pressure 145/83 11/06/16 05:47 O2 Sat by Pulse Oximetry (%) 97 11/06/16 05:47 Constitutional: Yes: Anxious Eyes: Yes: WNL HENT: Yes: WNL Neck: Yes: WNL Respiratory: Yes: Regular Gastrointestinal: Yes: Soft Renal/: No: Anuria Cardiovascular: Yes: Regular Rate and Rhythm JVD: No Carotid Bruit: No PMI: Non-Displaced Heart Sounds: Yes: S1, S2, S4 Murmur: Yes: Systolic Murmur, Grade 1 Musculoskeletal: Yes: Muscle Weakness Edema: No Peripheral Pulses WNL: Yes Integumentary: Yes: Jaundice Neurological: Yes: Alert, Oriented, Weakness Psychiatric: Yes: Other - Other Data Labs, Other Data: CBC, BMP 11/05/16 05:35 11/05/16 05:35 INR, PTT INR 0.88 (0.82-1.09) 11/04/16 17:20 Imaging - Results Chest X-ray: Image Reviewed Cat Scan: Report Reviewed (chronic lacunar infarct) EKG: Image Reviewed (NSR; LAE) Problem List - Problems (1) CHF (congestive heart failure) Assessment/Plan: On lisinopril If product communications manager says pt does not have bronchial asthma (pt says he had hospital admission for SOB and "asthma" 3 yrs ago, and takes "a pump" prn; ? bronchial sthma vs cardiac), may start beta renan (low-nrmal LVEF: HFpEF). Code(s): I50.9 - HEART FAILURE, UNSPECIFIED (2) Cerebrovascular accident (CVA) Assessment/Plan: Chronic lacunar infarct; f/u brain MRI. F/u with neurologist. Keep BP within parameters set by neurologist. Pt on ASA (presently 325 mg daily; consider decreasing to 81 mg dily because of incresed bleeding risk with higher dose, unless neurologist feels if essential to be on the higher level). aggressive lipid control; use high-dose statin, diet, exercise. Code(s): I63.9 - CEREBRAL INFARCTION, UNSPECIFIED Qualifiers: CVA mechanism: unspecified Qualified Code(s): I63.9 - Cerebral infarction, unspecified (3) Diabetes mellitus Code(s): E11.9 - TYPE 2 DIABETES MELLITUS WITHOUT COMPLICATIONS (4) Hyperlipidemia Assessment/Plan: aggressive control of lipids; however, pt feels statins cause him to feel weak. F/u lipid profile. Code(s): E78.5 - HYPERLIPIDEMIA, UNSPECIFIED Qualifiers: Hyperlipidemia type: unspecified Qualified Code(s): E78.5 - Hyperlipidemia, unspecified (5) Hypertension Code(s): I10 - ESSENTIAL (PRIMARY) HYPERTENSION Qualifiers: Hypertension type: essential hypertension Qualified Code(s): I10 - Essential (primary) hypertension (6) Asthma exacerbation Assessment/Plan: f/u with product communications manager: ? true bronchial asthma vs cardiac-caused. Code(s): J45.901 - UNSPECIFIED ASTHMA WITH (ACUTE) EXACERBATION (7) Chronic shoulder pain Code(s): M25.519 - PAIN IN UNSPECIFIED SHOULDER G89.29 - OTHER CHRONIC PAIN Qualifiers: Laterality: right Qualified Code(s): M25.511 - Pain in right shoulder; G89.29 - Other chronic pain (8) Obesity Assessment/Plan: Pt weighed 300 lbs; lost 100 lbs in the past 18 months through careful dieting. His has attending culinary school, and plans to start feeding him only healthy foods ("no outside eating anymore", he says). Code(s): E66.9 - OBESITY, UNSPECIFIED (9) Loco cardiac risk >20% in next 10 years Assessment/Plan: Coronary artery evaluation when stable (stress MIBI). Code(s): Z91.89 - OTH PERSONAL RISK FACTORS, NOT ELSEWHERE CLASSIFIED
[2016-11-06 10:32] VITALS: BP 139/84; PULSE 84; TEMP 98
--- NOTE | 2016-11-06 11:03 | PN ---
Progress Note (short form) - Note Progress Note: Neurology follow up 51 year old man with history of multiple ischemic infarcts (2011, 2015, with residual peripheral vision impairment), hypertension, hyperlipidemia, diabetes, neuropathy, presented to the ED with left face, arm and leg numbness and weakness. As per patient, he follows with Dr. Cortez as an outpatient for history of stroke. He was advised to remain on aspirin daily, however the patient admits that he ran out of aspirin recently. Denies smoking. Family history of stroke in father. States he has had blood workup in past for stroke- unclear if stroke in young workup completed. 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, 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 Home Medications - Allergies Allergies/Adverse Reactions: Allergies Allergy/AdvReac Type Severity Reaction Status Date / Time shellfish derived Allergy Intermediate Swelling Verified 11/04/16 17:06 almond oil Allergy Verified 11/04/16 17:06 blackwood flavor Allergy Verified 11/04/16 17:06 - Home Medications Home Medications: Ambulatory Orders Metformin HCl [Glucophage] 500 mg PO BID 08/19/15 Lisinopril [Prinivil] 20 mg PO DAILY 11/04/16 Naproxen [Naprosyn -] 500 mg PO BID 11/04/16 Family Disease History - Family Disease History Family Disease History: Other: Father (stroke) Review of Systems - Review of Systems Neurological: reports: Numbness, Pre-Existing Deficit, Weakness Assessment/Plan 51 year old man with history of multiple ischemic infarcts (2011, 2015, with residual peripheral vision impairement), hypertension, hyperlipidemia, diabetes , neuropathy, presented to the ED with left face, arm and leg numbness and weakness. As per patient, he follows with Dr. Cortez as an outpatient for history of stroke. He was advised to remain on aspirin daily, however the patient admits that he ran out of aspirin recently. Denies smoking. Family history of stroke in father. States he has had blood workup in past for stroke- unclear if stroke in young workup completed. Left side weakness, resolved NIHSS 1 - peripheral visual field loss- chronic Left sensory loss, secondary to right thalamic stroke, resolved CT head no acute findings MRI brain without contrast acute right thalamic ischemic stroke- explained findings to patient Aspirin 325 mg daily- continue with aspirin 325 daily, patient has a history of multiple strokes in the past Continue atorvastatin Echocardiogram. low-normal LV function, appreciate cardiology input Carotid doppler- no significant stenosis LDL 178, hga1c 7.8 Consider stroke in young workup as outpatient if not already completed Ok to follow up with neuro as outpatient in 2-4 weeks
--- NOTE | 2016-11-06 17:15 | EKG ---
Test Reason : Blood Pressure : / mmHG Vent. Rate : 097 BPM Atrial Rate : 097 BPM P-R Int : 152 ms QRS Dur : 084 ms QT Int : 346 ms P-R-T Axes : 060 050 055 degrees QTc Int : 439 ms NORMAL SINUS RHYTHM POSSIBLE LEFT ATRIAL ENLARGEMENT BORDERLINE ECG WHEN COMPARED WITH ECG OF 19-MAY-2016 14:31, NO SIGNIFICANT CHANGE WAS FOUND Confirmed by GREGORY HARRELL MD ([id number]) on 11/06/2016 5:15:25 PM Referred By: Confirmed By:GREGORY HARRELL MD
[2016-11-06] MEDS ORDERED: ATORVASTATIN CA 80 MG TABLET (FP) PO SCH (22:00)
== END 2016-11-06 12:51 | disposition home or self-care (01) | DRG 45 ==
LOC: JER 17:02 → JERBED 18:51 → J4W 21:10
PROVIDERS: ADMIT Internal Medicine; ATTEND Nurse Practitioner Acute Care
DX: I63.9 Cerebral infarction, unspecified (principal); E11.42 Type 2 diabetes mellitus with diabetic polyneuropathy; I11.0 Hypertensive heart disease with heart failure; I50.32 Chronic diastolic (congestive) heart failure; G81.94 Hemiplegia, unspecified affecting left nondominant side; H53.47 Heteronymous bilateral field defects; E11.65 Type 2 diabetes mellitus with hyperglycemia; E78.5 Hyperlipidemia, unspecified; R29.700 NIHSS score 0; M19.90 Unspecified osteoarthritis, unspecified site; Z79.84 Long term (current) use of oral hypoglycemic drugs; M25.511 Pain in right shoulder; E66.9 Obesity, unspecified; Z68.30 Body mass index [BMI] 30.0-30.9, adult; J45.909 Unspecified asthma, uncomplicated
CPT/HCPCS: 36415; 70450-TC; 70551-TC; 71010-TC; 80048; 80053; 82465; 82550; 82553; 83036; 83718; 83721; 84478; 84484; 85025; 85610; 86850; 86900; 86901; 93005; 93010; 93306-TC; 93880-TC; 97116-GP; 97161; 99285-25

== ENCOUNTER 2016-11-08 18:14 | Emergency (ER) | payer OTHER ==
[2016-11-08 18:29] VITALS: TEMP 97.3; BMI 23.6
[2016-11-08] MEDS ORDERED: METOPROLOL SUCCINATE 25 MG TAB.SR.24H (FP) PO ONE (18:52)
--- NOTE | 2016-11-08 18:52 | PDOC ---
[id number] No Limitations - History of Present Illness Initial Comments: 11/08/16 19:04 The patient is a 51 year old male with a significant past medical history of CVA(X2), TIA, diabetes, peripheral neuropathy, HTN, HLD, and DM, who presents to the emergency department complaining of hypertension, headache, and congestion that began today. He reports checking his b.p. at approximately 14:00 , which read approximately 188/145. He reports calling EMS at approximately 15: 30, because he was debating whether or not coming into the ED since he was here 4 days ago for a TIA. He reports associated headache. He reports his headache is mildly alleviated when closing his eyes, and exacerbated with exposure to the sun or any light. Earlier this morning before taking his hypertension medications, he reports his b.p. was 160/70. 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 The patient denies any changes in vision other than loss of peripheral vision s/p TIA. The patient reports his diabetes is well controlled. He states his blood glucose levels are typically 93-100 before eating and 125 after eating. The patient denies any chest pain, shortness of breath, diaphoresis, or palpitations. The patient denies any nausea, vomiting, diarrhea, or constipation. The patient reports rhinorrhea, but denies any fever, chills, cough, or dizziness. The patient denies any changes in appetite. The patient denies any recent travel or sick contacts. Allergies: Topmost oil, blackwood flavor, shellfish Past Surgical History: None reported. Social History: Non-smoker. Denies alcohol or drug use. PCP: Dr. Thomas <Kathleen Phillips - Last Filed: 11/08/16 19:09> <Jacque Garcia - Last Filed: 11/10/16 10:18> - General Chief Complaint: Blood Pressure Problem Stated Complaint: HYPERTENSION Time Seen by Provider: 11/08/16 18:39 Past History <Kathleen Phillips - Last Filed: 11/08/16 19:09> - Past Medical History CVA: Yes (2 strokes) Diabetes: Yes HTN: Yes Hypercholesterolemia: Yes - Immunization History Immunization Up to Date: Yes - Psycho/Social/Smoking Cessation Hx Anxiety: No Suicidal Ideation: No Smoking Status: No Smoking History: Never smoked Have you smoked in the past 12 months: No Number of Cigarettes Smoked Daily: 0 Hx Alcohol Use: No Drug/Substance Use Hx: No Substance Use Type: None Hx Substance Use Treatment: No <Jacque Garcia - Last Filed: 11/10/16 10:18> - Past Medical History Allergies/Adverse Reactions: Allergies Allergy/AdvReac Type Severity Reaction Status Date / Time almond oil Allergy Intermediate Swelling Verified 11/08/16 18:30 blackwood flavor Allergy Intermediate Swelling Verified 11/08/16 18:30 shellfish derived Allergy Intermediate Swelling Verified 11/08/16 18:30 Home Medications: Ambulatory Orders Metformin HCl [Glucophage] 500 mg PO BID 08/19/15 Lisinopril [Prinivil] 20 mg PO DAILY 11/04/16 Aspirin [ASA -] 325 mg PO DAILY #60 tablet 11/06/16 Atorvastatin Ca [Lipitor] 40 mg PO HS #30 tablet 11/06/16 Metoprolol Succinate [Toprol XL -] 25 mg PO DAILY #30 tab.sr.24h 11/08/16 Chlorthalidone [Hygroton -] 25 mg PO DAILY #30 tablet 11/09/16 Review of Systems - Review of Systems Able to Perform ROS?: Yes Comments:: 11/08/16 19:04 GENERAL/CONSTITUTIONAL: No fever or chills. No weakness. HEAD, EYES, EARS, NOSE AND THROAT: +Congestion, +rhinnorhea. No change in vision. No ear pain or discharge. No sore throat. CARDIOVASCULAR: +Hypertension. No chest pain or shortness of breath. RESPIRATORY: No cough, wheezing, or hemoptysis. GASTROINTESTINAL: No nausea, vomiting, diarrhea or constipation. GENITOURINARY: No dysuria, frequency, or change in urination. MUSCULOSKELETAL: No joint or muscle swelling or pain. No neck or back pain. SKIN: No rash NEUROLOGIC: +Headache. No vertigo, loss of consciousness, or change in strength/ sensation. ENDOCRINE: No increased thirst. No abnormal weight change. HEMATOLOGIC/LYMPHATIC: No anemia, easy bleeding, or history of blood clots. ALLERGIC/IMMUNOLOGIC: No hives or skin allergy. <Kathleen Phillips - Last Filed: 11/08/16 19:09> *Physical Exam - Vital Signs Last Vital Signs Temp Pulse Resp BP Pulse Ox 97.3 F L 93 H 20 194/109 100 11/08/16 18:27 11/08/16 18:27 11/08/16 18:27 11/08/16 18:27 11/08/16 18:27 <Kathleen Phillips - Last Filed: 11/08/16 19:09> - Vital Signs Last Vital Signs Temp Pulse Resp BP Pulse Ox 97.3 F L 93 H 20 194/109 100 11/08/16 18:27 11/08/16 18:27 11/08/16 18:27 11/08/16 18:27 11/08/16 18:27 - Physical Exam Comments: GENERAL: Awake, alert, and fully oriented, in no acute distress HEAD: No signs of trauma EYES: PERRLA, EOMI, sclera anicteric, conjunctiva clear ENT: Auricles normal inspection, hearing grossly normal, nares patent, oropharynx clear without exudates. Moist mucosa NECK: Normal ROM, supple, no lymphadenopathy, JVD, or masses LUNGS: Breath sounds equal, clear to auscultation bilaterally. No wheezes, and no crackles HEART: Regular rate and rhythm, normal S1 and S2, no murmurs, rubs or gallops ABDOMEN: Soft, nontender, normoactive bowel sounds. No guarding, no rebound. No masses EXTREMITIES: Normal range of motion, no edema. No clubbing or cyanosis. No cords, erythema, or tenderness NEUROLOGICAL: Cranial nerves II through XII grossly intact. Normal speech, normal gait SKIN: Warm, Dry, normal turgor, no rashes or lesions noted. <Jacque Garcia - Last Filed: 11/10/16 10:18> Medical Decision Making - Medical Decision Making 11/08/16 19:[address] Gerardo at shift change. Patient is on lisinopril for HTN, metoprolol was stopped at end of recent admission, no additional medication was given for BP. His BP was high as outpatient today. No symptoms- no cp, SOB, CHRISTIAN, weakness. He has chronic R peripheral vision changes. Will give the metoprolol and reassess. <Jacque Garcia - Last Filed: 11/10/16 10:18> *DC/Admit/Observation/Transfer - Attestations Scribe Attestion: 11/08/16 19:09 Documentation prepared by Kathleen Phillips, acting as medical art therapist for Jacque Garcia MD. <Kathleen Phillips - Last Filed: 11/08/16 19:09> <Jacque Garcia - Last Filed: 11/10/16 10:18> Diagnosis at time of Disposition: Musculoskeletal pain - Discharge Dispostion Disposition: HOME - Prescriptions Prescriptions: Metoprolol Succinate [Toprol XL -] 25 mg PO DAILY #30 tab.sr.24h - Referrals Referrals: Ranjith Thomas MD [Primary Care Provider] -
[2016-11-08] MEDS ORDERED: METOPROLOL SUCCINATE 50 MG TAB.SR.24H (FP) ONE (19:01)
[2016-11-08] MEDS ORDERED: ENALAPRIL MALEATE 5 MG TABLET (FP) PO ONE (19:58)
--- NOTE | 2016-11-08 19:59 | PDOC ---
[id number] 98 11/08/16 18:27 11/08/16 19:56 11/08/16 19:56 11/08/16 19:56 11/08/16 19:56 - Physical Exam General Appearance: Yes: Nourished ED Treatment Course - Medications Given in the ED: ED Medications Discontinued Medications Generic Name Dose Route Start Last Admin Trade Name Suzanne PRN Reason Stop Dose Admin Metoprolol Succinate 25 mg 11/08/16 18:52 11/08/16 19:04 Toprol Xl - PO 11/08/16 18:53 25 mg ONCE ONE Administration Medical Decision Making - Medical Decision Making 11/08/16 20:50 BP 159/98. Pt asymptomatic. Pt prescription sent to pharmacy. Pt to start his medications as usual. *DC/Admit/Observation/Transfer Diagnosis at time of Disposition: Musculoskeletal pain - Discharge Dispostion Disposition: HOME - Prescriptions Prescriptions: Metoprolol Succinate [Toprol XL -] 25 mg PO DAILY #30 tab.sr.24h - Referrals Referrals: Ranjith Thomas MD [Primary Care Provider] - - Patient Instructions - Post Discharge Activity
[2016-11-08] MEDS ORDERED: ENALAPRIL MALEATE 5 MG TABLET (FP) ONE (20:00)
[2016-11-08 20:52] VITALS: BP 159/98; PULSE 77
--- NOTE | 2016-11-09 10:04 | EKG ---
Test Reason : Blood Pressure : / mmHG Vent. Rate : 081 BPM Atrial Rate : 081 BPM P-R Int : 156 ms QRS Dur : 090 ms QT Int : 374 ms P-R-T Axes : 050 019 053 degrees QTc Int : 434 ms POOR DATA QUALITY, INTERPRETATION MAY BE ADVERSELY AFFECTED NORMAL SINUS RHYTHM POSSIBLE LEFT ATRIAL ENLARGEMENT NONSPECIFIC ST ABNORMALITY WHEN COMPARED WITH ECG OF 04-NOV-2016 17:31, NO SIGNIFICANT CHANGE WAS FOUND Confirmed by TRACEE DUEÑAS MD ([id number]) on 11/09/2016 10:03:40 AM Referred By: Confirmed By:TRACEE DUEÑAS MD
== END 2016-11-08 21:00 | disposition home or self-care (01) ==
LOC: JER 18:14
DX: I10 Essential (primary) hypertension (principal); E11.42 Type 2 diabetes mellitus with diabetic polyneuropathy; Z79.84 Long term (current) use of oral hypoglycemic drugs; E78.00 Pure hypercholesterolemia, unspecified; Z86.73 Personal history of transient ischemic attack (TIA), and cerebral infarction without residual deficits
CPT/HCPCS: 93005; 93010; 99283-25

== ENCOUNTER 2016-11-09 11:27 | Emergency (ER) | payer OTHER ==
[2016-11-09 11:32] VITALS: TEMP 97.9; BMI 30.2
--- NOTE | 2016-11-09 12:01 | PDOC ---
History of Present Illness - General Chief Complaint: Blood Pressure Problem Stated Complaint: HIGH BP, RT EYE PAIN Time Seen by Provider: 11/09/16 11:38 - History of Present Illness Initial Comments: 11/09/16 12:02 The patient is a 51 year old male with a significant past medical history of CVA (X2), TIA 5 days ago, DM, peripheral neuropathy, HTN, HLD, chronic sinusitis , who presents to the emergency department complaining of headache and right sided facial pain that started 2 hours ago and fluctuating BP.The pain is similar to the pain that the pt has been having when he has sinusitis. He states that it is sharp, intermittent, every 20-30 minutes, sharp, aggravated by coughing/sneezing, 8/10 in severity, radiating to the right side of the head. He states that yesterday he had nasal congestion and runny nose that resolved today. He visited ED yesterday for elevated BP that was controlled with medications. He denies dizziness, numbness, paresthesia, LOC, vision changes, hearing loss. He denies chest pain, SOB, fever, chills. He denies dysuria, increased frequency, urgency. Past History - Past Medical History Allergies/Adverse Reactions: Allergies Allergy/AdvReac Type Severity Reaction Status Date / Time almond oil Allergy Intermediate Swelling Verified 11/09/16 11:32 blackwood flavor Allergy Intermediate Swelling Verified 11/09/16 11:32 shellfish derived Allergy Intermediate Swelling Verified 11/09/16 11:32 Home Medications: Ambulatory Orders Metformin HCl [Glucophage] 500 mg PO BID 08/19/15 Lisinopril [Prinivil] 20 mg PO DAILY 11/04/16 Aspirin [ASA -] 325 mg PO DAILY #60 tablet 11/06/16 Atorvastatin Ca [Lipitor] 40 mg PO HS #30 tablet 11/06/16 Metoprolol Succinate [Toprol XL -] 25 mg PO DAILY #30 tab.sr.24h 11/08/16 Chlorthalidone [Hygroton -] 25 mg PO DAILY #30 tablet 11/09/16 CVA: Yes (2 strokes) Diabetes: Yes HTN: Yes Hypercholesterolemia: Yes - Immunization History Immunization Up to Date: Yes - Psycho/Social/Smoking Cessation Hx Anxiety: No Suicidal Ideation: No Smoking Status: No Smoking History: Never smoked Have you smoked in the past 12 months: No Number of Cigarettes Smoked Daily: 0 Information on smoking cessation initiated: No Hx Alcohol Use: No Drug/Substance Use Hx: No Substance Use Type: None Hx Substance Use Treatment: No Review of Systems - Review of Systems Able to Perform ROS?: Yes Comments:: 11/09/16 12:10 REVIEW OF SYSTEMS CONSTITUTIONAL: Absent: fever, chills, diaphoresis, generalized weakness, malaise, loss of appetite, weight change HEENT: Absent: rhinorrhea, nasal congestion, throat pain, throat swelling, difficulty swallowing, mouth swelling, ear pain, eye pain, visual changes CARDIOVASCULAR: Absent: chest pain, syncope, palpitations, irregular heart rate, lightheadedness , peripheral edema RESPIRATORY: Absent: cough, shortness of breath, dyspnea with exertion, orthopnea, wheezing, stridor, hemoptysis GASTROINTESTINAL: Absent: abdominal pain, abdominal distension, nausea, vomiting, diarrhea, constipation, melena, hematochezia GENITOURINARY: Absent: dysuria, frequency, urgency, hesitancy, hematuria, flank pain, genital pain MUSCULOSKELETAL: Absent: myalgia, arthralgia, joint swelling, back pain, neck pain SKIN: Absent: rash, itching, pallor HEMATOLOGIC/IMMUNOLOGIC: Absent: easy bleeding, easy bruising, lymphadenopathy, frequent infections ENDOCRINE: Absent: unexplained weight gain, unexplained weight loss, heat intolerance, cold intolerance NEUROLOGIC: headache Absent: focal weakness or paresthesias, dizziness, unsteady gait, seizure, mental status changes, bladder or bowel incontinence PSYCHIATRIC: Absent: anxiety, depression, suicidal or homicidal ideation, hallucinations. 11/09/16 12:34 Is the patient limited Lao proficient: No *Physical Exam - Vital Signs Last Vital Signs Temp Pulse Resp BP Pulse Ox 97.9 F 84 18 159/90 99 11/09/16 11:30 11/09/16 11:30 11/09/16 11:30 11/09/16 11:30 11/09/16 11:30 - Physical Exam Comments: 11/09/16 12:09 GENERAL: The patient is awake, alert, and fully oriented, in no acute distress. HEAD: Normal with no signs of trauma. EYES: PERRL, extraocular movements intact, sclera anicteric, conjunctiva clear. No ptosis. ENT: Ears normal, nares patent, oropharynx clear without exudates, moist mucous membranes. NECK: Trachea midline, full range of motion, supple. LUNGS: Breath sounds equal, clear to auscultation bilaterally, no wheezes, no crackles, no accessory muscle use. HEART: Regular rate and rhythm, S1, S2 without murmur, rub or gallop. ABDOMEN: Obese, soft, nontender, nondistended, normoactive bowel sounds, no guarding, no rebound, no hepatosplenomegaly, no masses. EXTREMITIES: 2+ pulses, warm, well-perfused, no edema. NEUROLOGICAL: Normal speech, gait not observed. PSYCH: Normal mood, normal affect. SKIN: Warm, dry, normal turgor, no rashes or lesions noted Medical Decision Making - Medical Decision Making 11/09/16 12:34 The pt is a 51 year old male who presents complaining of fluctuating BP and right sided face pain, aggravated by coughing/sneezing. We cadlled who recommended adding 25mg of chlorthalidone daily and f/u with Cardiology and [facility] after leaving the hospital. 11/09/16 14:41 We administered 25mg of chlorthalidone and repeated his BP. The pt is ready for discharge. *DC/Admit/Observation/Transfer Diagnosis at time of Disposition: Hypertension Qualifiers: Hypertension type: essential hypertension Qualified Code(s): I10 - Essential ( primary) hypertension - Discharge Dispostion Disposition: HOME Condition at time of disposition: Good Admit: No - Prescriptions Prescriptions: Chlorthalidone [Hygroton -] 25 mg PO DAILY #30 tablet - Patient Instructions Printed Discharge Instructions: DI for High Blood Pressure, How to Monitor Your Blood Pressure at Home Additional Instructions: Please take your medications as prescribed. We added another one; 25mg of chlorthalidone. Please take it everyday. See primary care physician and Academic Specialist in a week. If your symptoms worsen come back to Emergency Room as soon as possible.
--- NOTE | 2016-11-09 12:34 | PDOC ---
Attending Attestation - Resident Resident Name: Akua Blackmon - ED Attending Attestation I have performed the following: I have examined & evaluated the patient, The case was reviewed & discussed with the resident, I agree w/resident's findings & plan, Exceptions are as noted - HPI HPI: 11/09/16 12:33 The patient is a 51-year-old male with a significant past medical history of hypertension, hyperlipidemia, CVA, recent TIA, who presents to the emergency department with concern of fluctuating blood pressure. He also had an episode today where he sneezed and experienced transient, sharp, mild pain in his right cheek. It lasted for seconds, and then spontaneously resolved. He is asymptomatic now. He denies focal weakness or paresthesias, visual changes, speech changes. He has been fully compliant with his medications. - Physicial Exam PE: 11/09/16 12:33 He is well-appearing and in no acute distress Vitals noted He has a nonfocal neurological examination - Medical Decision Making 11/09/16 12:34 He is well-appearing and in no acute distress We have recommended that he recommends adding 25mg of chlorthalidone daily and he will see him in follow-up He will follow-up with his primary care physician and horse riding coach or instructor as soon as possible Clinical impression: Fluctuating blood pressure I discussed the physical exam findings, ancillary test results and final diagnoses with the patient. I answered all of the patient's questions. The patient was satisfied with the care received and felt comfortable with the discharge plan and treatment plan. The patient will call their primary care physician within 24 hours to arrange follow-up and will return to the Emergency Department with any new, persistent or worsening symptoms. 11/09/16 12:38 11/09/16 12:39 11/09/16 14:40 He remains stable and will follow up with his PCP for continued care
[2016-11-09] MEDS ORDERED: CHLORTHALIDONE 25 MG TABLET PO SCH (12:45)
[2016-11-09 13:56] VITALS: BP 158/91; PULSE 70
--- NOTE | 2016-11-10 18:32 | EKG ---
Test Reason : Blood Pressure : / mmHG Vent. Rate : 084 BPM Atrial Rate : 084 BPM P-R Int : 158 ms QRS Dur : 086 ms QT Int : 366 ms P-R-T Axes : 056 016 065 degrees QTc Int : 432 ms NORMAL SINUS RHYTHM POSSIBLE LEFT ATRIAL ENLARGEMENT BORDERLINE ECG WHEN COMPARED WITH ECG OF 08-NOV-2016 19:32, NO SIGNIFICANT CHANGE WAS FOUND Confirmed by KATRINA DILLON MD ([id number]) on 11/10/2016 6:32:16 PM Referred By: Confirmed By:KATRINA DILLON MD
== END 2016-11-09 14:57 | disposition home or self-care (01) ==
LOC: JER 11:27
DX: I10 Essential (primary) hypertension (principal); E11.9 Type 2 diabetes mellitus without complications; E78.5 Hyperlipidemia, unspecified; J32.8 Other chronic sinusitis; G62.9 Polyneuropathy, unspecified; Z86.73 Personal history of transient ischemic attack (TIA), and cerebral infarction without residual deficits; Z79.84 Long term (current) use of oral hypoglycemic drugs; Z79.82 Long term (current) use of aspirin
CPT/HCPCS: 93005; 93010; 99282-25

== ENCOUNTER 2017-11-24 10:42 | Inpatient (IN) | payer OTHER ==
[2017-11-24] MEDS ORDERED: ONDANSETRON 4 MG/2 ML VIAL IVPB ONE (11:16)
[2017-11-24] MEDS ORDERED: ONDANSETRON 4 MG/2 ML VIAL ONE (11:17)
[2017-11-24] MEDS ORDERED: MECLIZINE HCL 25 MG TABLET (FP) PO ONE (11:56)
[2017-11-24] MEDS ORDERED: MECLIZINE HCL 25 MG TABLET (FP) ONE (12:05)
--- NOTE | 2017-11-24 12:05 | PDOC ---
Attending Attestation - ED Attending Attestation I have performed the following: I have examined & evaluated the patient, The case was reviewed & discussed with the resident, I agree w/resident's findings & plan, Exceptions are as noted - Medical Decision Making 11/24/17 12:03 52-year-old male history of prostate cancer, multiple strokes, here today with vertigo like symptoms and difficulty ablating due to imbalance. On exam he has mild dysmetria on the left positive reproducible symptoms with [place]-Hallpike to the right however no visualized nystagmus. Differential includes peripheral vertigo, cerebellar CVA, electrolyte abnormality dehydration. Plan CT head labs IV hydration and symptom control with Zofran and meclizine. Due to patient's high risk factors of multiple previous CVA will likely require admission for MRI. We'll consult neurology <Erma Mckinley - Last Filed: 11/24/17 12:35> - Resident Resident Name: Emmanuel Maciasson - HPI HPI: 11/24/17 12:12 The patient is a 52-year-old male, with a significant past medical history of several previous TIAs, partial blindness, prostate CA, who presents to the ED with nausea, vomiting, and dizziness. The patient states that he cant feel his legs. He was last normal at 9:30 PM last night before he went to bed. He describes his dizziness as the room spinning. He is unable to walk due to balance changes. The patient had his nephew carry him to the car before reporting to the ED. He denies any chest pain or shortness of breath, but reports feeling diaphoretic. Hw denies any focal new weakness. The patient is unable to walk due to the imbalance more than the weakness. The patient denies any fever, chills, or abdominal pain. Denies any urinary changes. Allergies: almond oil, blackwood flavor, shellfish derived. PCP: Dr. Carlson - Physicial Exam PE: 11/24/17 12:12 GENERAL: Awake, alert, and fully oriented, in no acute distress HEAD: No signs of trauma EYES: PERRLA, EOMI, sclera anicteric, conjunctiva clear ENT: Auricles normal inspection, nares patent, oropharynx clear without exudates. Moist mucosa. NECK: Normal ROM, supple, no lymphadenopathy, JVD, or masses LUNGS: Breath sounds equal, clear to auscultation bilaterally. No wheezes, and no crackles HEART: Regular rate and rhythm, normal S1 and S2, no murmurs, rubs or gallops ABDOMEN: Soft, nontender, normoactive bowel sounds. No guarding, no rebound. No masses EXTREMITIES: Normal range of motion, no edema. No tenderness NEUROLOGICAL: (+)Dysmetria left arm, Diks Hallpike to the right, Weakness, 4+/5 strength (old), Visual logan decreased throughout (old), Speech clear. Alert and oriented x3 SKIN: Warm, Dry, normal turgor, no rashes or lesions noted <Yani Chacko - Last Filed: 11/24/17 12:39> Heart Score/ECG Review #1 General ECG Interpretation: Sinus Rhythm, Normal Rate (80), Normal Intervals, No acute ischemic changes <Erma Mckinley - Last Filed: 11/24/17 12:35> NIH Stroke Scale - Initial Evaluation Level of consciousness: Alert Ask patient the month and their age: Answers both correctly Ask patient to open & close eyes; make fist and let go: Obeys both correctly Best gaze (horizontal eye movement): Normal Visual field testing: Partial hemianopia (old) Facial paresis (Show teeth/raise eyebrows/close eyes tight): Normal symmetrical movement Motor Function: Left Arm: Normal Motor Function: Right Arm: Normal (extends arm 90 (or 45) degrees for 10 seconds without drift Motor Function: Left Leg: Normal (extends leg 30 degrees for 5 seconds without drift) Motor Function: Right Leg: Normal (extends leg 30 degrees for 5 seconds without drift) Limb Ataxia: Present in one limb Sensory(Use pinprick test arms,legs,trunk,face/side to side): Normal Best language (Describe picture, name items, read sentences): No Aphasia Dysarthria (read several words): Normal articulation Extinction and Inattention: No abnormality - Total Score NIH Stroke Scale Score: 2 <Erma Mckinley - Last Filed: 11/24/17 12:35> Attestations - Attestations 11/24/17 12:14 Documentation prepared by Yani Chacko, acting as medical numerical control operator for Erma Mckinley MD. <Yani Chacko - Last Filed: 11/24/17 12:39>
[2017-11-24 12:12] LABS: EOS % 5.1 % (0-4.5); HEMATOCRIT 42.3 % (35.4-49); HEMOGLOBIN 14.5 GM/dL (11.7-16.9); LYMPH % 24.6 % (8-40); MCH 29.9 pg (25.7-33.7); MCHC 34.2 g/dl (32.0-35.9); MEAN CELL VOLUME 87.5 fl (80-96); MEAN PLT VOLUME 9.4 fl (7.5-11.1); MONO % 3.8 % (3.8-10.2); NEUT % 65.5 % (42.8-82.8); PLATELET COUNT 253 K/MM3 (134-434); RBC 4.84 M/mm3 (4.00-5.60); RDW 14.7 % (11.9-15.9)
[2017-11-24 12:30] LABS: INR 0.91 (0.82-1.09); PROTHROMBIN TIME (PATIENT) 10.3 SEC (9.98-11.88)
[2017-11-24 12:32] LABS: ACTIVATED PTT 22.4 SECONDS (26.9-34.4)
--- NOTE | 2017-11-24 12:34 | PDOC ---
History of Present Illness - History of Present Illness Initial Comments: 11/24/17 12:29 52 yo M with h/o HTN, DM, CAD,CVA x 3 ( no residual deficits) ASHD, Prostate Ca. who p/w nausea and vomiting. Pt. reports multiple episodes of bilious, non bloody emesis beginning at 0400 AM. + Diaphoresis and numbness/tingling in LE. Onset of emesis following episode of unremitting spinning sensation, worse with movement. Reports drinking 2 6 pack of beers. Reports chronically poor vision. Endorses alcohol intake on weekends. Denies F/C, CP, SOB, abdominal pain, diarrhea, constipation, urinary complaints, weakness, lightheadedness, sensory changes. Denies h/o [place], stent placement, CABG, but reports multi-vessel coronary occlusion. No recent travels or change in diet. <Lupillo Macias - Last Filed: 11/24/17 13:54> <Erma Mckinley - Last Filed: 11/24/17 15:05> - General Chief Complaint: Nausea/Vomiting Stated Complaint: VOMITING, ABD PAIN Time Seen by Provider: 11/24/17 11:55 Past History - Past Medical History Cancer: Yes (prostate) CVA: Yes (2 strokes) COPD: No Diabetes: Yes HTN: Yes Hypercholesterolemia: Yes - Immunization History Immunization Up to Date: Yes - Suicide/Smoking/Psychosocial Hx Smoking Status: No Smoking History: Never smoked Have you smoked in the past 12 months: No Number of Cigarettes Smoked Daily: 0 Information on smoking cessation initiated: No Hx Alcohol Use: No Drug/Substance Use Hx: No Substance Use Type: None Hx Substance Use Treatment: No <Lupillo Macias - Last Filed: 11/24/17 13:54> <Erma Mckinley - Last Filed: 11/24/17 15:05> - Past Medical History Allergies/Adverse Reactions: Allergies Allergy/AdvReac Type Severity Reaction Status Date / Time almond oil Allergy Intermediate Swelling Verified 11/24/17 10:48 blackwood flavor Allergy Intermediate Swelling Verified 11/24/17 10:48 shellfish derived Allergy Intermediate Swelling Verified 11/24/17 10:48 Home Medications: Ambulatory Orders Metformin HCl [Glucophage] 500 mg PO BID 08/19/15 Lisinopril [Prinivil] 20 mg PO DAILY 11/04/16 Metoprolol Succinate [Toprol XL -] 25 mg PO DAILY #30 tab.sr.24h 11/08/16 Nitroglycerin [Nitrostat] 0.4 mg SL PRN 11/24/17 Pravastatin Sodium [Pravachol (Nf)] 40 mg PO HS 11/24/17 Review of Systems - Review of Systems Comments:: 11/24/17 12:34 GENERAL/CONSTITUTIONAL: No fever or chills. No weakness. HEAD, EYES, EARS, NOSE AND THROAT: No change in vision. No ear pain or discharge. No sore throat. CARDIOVASCULAR: No chest pain or shortness of breath RESPIRATORY: No cough, wheezing, or hemoptysis. GASTROINTESTINAL: + Nausea, vomiting. No diarrhea or constipation. GENITOURINARY: No dysuria, frequency, or change in urination. MUSCULOSKELETAL: No joint or muscle swelling or pain. No neck or back pain. SKIN: No rash NEUROLOGIC: No headache, vertigo, loss of consciousness, or change in strength/ sensation. ENDOCRINE: No increased thirst. No abnormal weight change HEMATOLOGIC/LYMPHATIC: No anemia, easy bleeding, or history of blood clots. ALLERGIC/IMMUNOLOGIC: No hives or skin allergy. <Lupillo Macias - Last Filed: 11/24/17 13:54> *Physical Exam - Vital Signs Last Vital Signs Temp Pulse Resp BP Pulse Ox 97.3 F L 76 18 176/91 98 11/24/17 11:15 11/24/17 10:46 11/24/17 10:46 11/24/17 11:15 11/24/17 10:46 - Physical Exam Comments: 11/24/17 12:44 GENERAL: Awake, alert, and fully oriented, in no acute distress HEAD: No signs of trauma, normocephalic, atraumatic EYES: PERRLA, EOMI, sclera anicteric, conjunctiva clear ENT: Auricles normal inspection, hearing grossly normal, nares patent, oropharynx clear without exudates. Moist mucosa NECK: Normal ROM, supple, no lymphadenopathy, JVD, or masses LUNGS: No distress, speaks full sentences, clear to auscultation bilaterally HEART: Regular rate and rhythm, normal S1 and S2, no murmurs, rubs or gallops, peripheral pulses normal and equal bilaterally. ABDOMEN: Soft, nontender, normoactive bowel sounds. No guarding, no rebound. No masses EXTREMITIES : Normal inspection, Normal range of motion, no edema. No clubbing or cyanosis. NEUROLOGICAL: Cranial nerves II through XII grossly intact. Normal speech, normal gait, no focal sensorimotor deficits SKIN: Warm, Dry, normal turgor, no rashes or lesions noted <Lupillo Macias - Last Filed: 11/24/17 13:54> - Vital Signs Last Vital Signs Temp Pulse Resp BP Pulse Ox 97.3 F L 80 18 162/89 100 11/24/17 11:15 11/24/17 13:30 11/24/17 10:46 11/24/17 13:30 11/24/17 13:30 <Erma Mckinley - Last Filed: 11/24/17 15:05> ED Treatment Course - LABORATORY CBC & Chemistry Diagram: 11/24/17 11:56 11/24/17 11:56 - ADDITIONAL ORDERS Additional order review: 11/24/17 11:56 RBC 4.84 MCV 87.5 MCHC 34.2 RDW 14.7 MPV 9.4 Neutrophils % 65.5 Lymphocytes % 24.6 D Monocytes % 3.8 Eosinophils % 5.1 H Basophils % 1.0 - RADIOLOGY Radiology Studies Ordered: Category Date Time Status CXRPORT [CHEST X-RAY PORTABLE*] [RAD] Stat Radiology 11/24/17 12:26 Ordered - Medications Given in the ED: ED Medications Discontinued Medications Generic Name Dose Route Start Last Admin Trade Name Freq PRN Reason Stop Dose Admin Meclizine HCl 25 mg 11/24/17 11:56 11/24/17 12:12 Antivert - PO 11/24/17 11:57 25 mg ONCE ONE Administration Ondansetron HCl 4 mg 11/24/17 11:16 11/24/17 11:18 Zofran Injection IVPB 11/24/17 11:17 4 mg ONCE ONE Administration <Lupillo Macias - Last Filed: 11/24/17 13:54> - LABORATORY CBC & Chemistry Diagram: 11/24/17 11:56 11/24/17 11:56 - ADDITIONAL ORDERS Additional order review: Laboratory Results 11/24/17 11/24/17 11:56 11:56 PT with INR 10.30 INR 0.91 PTT (Actin FS) 22.4 L Sodium 135 L Potassium 5.3 H D Chloride 102 Carbon Dioxide 23 Anion Gap 10 BUN 12 Creatinine 1.2 Creat Clearance w eGFR > 60 Random Glucose 267 H D Calcium 8.9 Total Bilirubin 0.5 D AST 60 H D ALT 38 D Alkaline Phosphatase 63 Creatine Kinase 335 H Creatine Kinase Index 0.8 CK-MB (CK-2) 2.817 Troponin I 0.11 H D Total Protein 8.8 H Albumin 3.9 Lipase 168 11/24/17 11:56 RBC 4.84 MCV 87.5 MCHC 34.2 RDW 14.7 MPV 9.4 Neutrophils % 65.5 Lymphocytes % 24.6 D Monocytes % 3.8 Eosinophils % 5.1 H Basophils % 1.0 - RADIOLOGY Radiology Studies Ordered: Category Date Time Status HEAD CT (STROKE) [CT] Stat CT Scan 11/24/17 11:55 Completed - Medications Given in the ED: ED Medications Discontinued Medications Generic Name Dose Route Start Last Admin Trade Name Freq PRN Reason Stop Dose Admin Sodium Chloride 1,000 mls @ 1,000 mls/hr 11/24/17 13:54 11/24/17 14:08 Normal Saline - IV 11/24/17 14:53 1,000 mls/hr ASDIR STA Administration Meclizine HCl 25 mg 11/24/17 11:56 11/24/17 12:12 Antivert - PO 11/24/17 11:57 25 mg ONCE ONE Administration Metoclopramide HCl 10 mg 11/24/17 13:54 11/24/17 14:08 Reglan Injection - IVPUSH 11/24/17 13:55 10 mg ONCE ONE Administration Ondansetron HCl 4 mg 11/24/17 11:16 11/24/17 11:18 Zofran Injection IVPB 11/24/17 11:17 4 mg ONCE ONE Administration <Erma Mckinley - Last Filed: 11/24/17 15:05> Medical Decision Making - Medical Decision Making 11/24/17 12:44 52 yo M with h/o HTN, DM, CAD,CVA x 3 ( no residual deficits) ASHD, Prostate Ca. who multiple episodes of bilious, non bloody emesis beginning at 0400 AM following onset of vertigo/spinning sensation this AM, worse with movement, and less severe at rest. Reports drinking 2 6 pack of beers. + Diaphoresis and numbness/tingling in LE. Endorses alcohol intake on weekends. Denies F/C, palpitations, orthopnea, wheezing, cough, CP, SOB, abdominal pain, diarrhea, constipation, urinary complaints, weakness, lightheadedness. Denies h/o [place], stent placement, CABG, but reports multi-vessel coronary occlusion. Physical exam unremarkable. Absent nystagmus. BP 180/108. Vertigo at rest concerning for central vertigo, CVA, vertberobasilar insufficiency. Multiple cardiac risk factors. ACS/[place] r/o. Will evaluate for evidence of end organ dysfunction 2/2 HTN. Will consider electrolyte abnormalities, acid-base disturbance, metabolic derangements, or underlying infection as cause of multiple episodes of emesis. No abdominal complaints to indicate GI pathology. Low suspicion of pancreatitis, colitis, borhaave. 11/24/17 12:44 ED Course: CBC, CMP, Lipase, Cardiac Pr EKG, CXR, CT HEAD 11/24/17 12:49 Trop: 0.11 (0.02-0.05) 11/24/17 12:51 CK: 335 CKI: 0.8 EKG: NSR with absent acute ST changes. Normal interval duration and axis. ( no significant change from previous EKG 11/09/16) 11/24/17 13:04 CXR: Unremarkable 11/24/17 13:49 CT HEAD: Impression: 1. Well demarcated infarction in the right gangliocapsular region as described above is new since MRI. This infarct is age indeterminate on CT. Please correlate clinically. If warranted, MRI may be obtained for further evaluation. 2. No acute intracranial hemorrhage, mass effects or hydrocephalus. 3. Chronic lacunar infarcts in bilateral thalami and left frontal subcortical white matter, unchanged from 11/06/2016. 11/24/17 13:54 Reglan, NS <Lupillo Macias - Last Filed: 11/24/17 13:54> *DC/Admit/Observation/Transfer <Lupillo Macias - Last Filed: 11/24/17 13:54> - Discharge Dispostion Admit: Yes <Erma Mckinley - Last Filed: 11/24/17 15:05> Diagnosis at time of Disposition: Vertigo, Cerebrovascular accident (CVA) - Referrals Referrals: Xuan Carlson [Primary Care Provider] - - Patient Instructions - Post Discharge Activity
[2017-11-24 12:37] LABS: ALBUMIN 3.9 g/dl (3.4-5.0); ANION GAP 10 (8-16); BILIRUBIN,TOTAL 0.5 mg/dL (0.2-1.0); BLOOD UREA NITROGEN 12 mg/dL (7-18); CALCIUM 8.9 mg/dL (8.5-10.1); CHLORIDE 102 mmol/L (98-107); CO2 23 mmol/L (21-32); CREATININE 1.2 mg/dL (0.7-1.3); GLUCOSE,RANDOM 267 mg/dL (74-106); SGPT/ALT 38 U/L (12-78); SODIUM 135 mmol/L (136-145); TOT PROT 8.8 g/dl (6.4-8.2)
[2017-11-24 12:39] LABS: ALK PHOS 63 U/L (45-117)
[2017-11-24 12:42] LABS: POTASSIUM 5.3 mmol/L (3.5-5.1)
[2017-11-24 12:43] LABS: SGOT/AST 60 U/L (15-37)
[2017-11-24 13:23] LABS: LIPASE 168 U/L (73-393)
[2017-11-24] MEDS ORDERED: SODIUM CHLORIDE 1,000 ML IV STA (13:54)
[2017-11-24] MEDS ORDERED: METOCLOPRAMIDE HCL INJECTION 10 MG/2 ML VIAL IVPUSH ONE (13:54)
[2017-11-24] MEDS ORDERED: METOCLOPRAMIDE HCL INJECTION 10 MG/2 ML VIAL ONE (14:04)
--- NOTE | 2017-11-24 14:47 | EKG ---
Test Reason : Blood Pressure : / mmHG Vent. Rate : 080 BPM Atrial Rate : 080 BPM P-R Int : 174 ms QRS Dur : 092 ms QT Int : 402 ms P-R-T Axes : 055 006 114 degrees QTc Int : 463 ms POOR DATA QUALITY, INTERPRETATION MAY BE ADVERSELY AFFECTED NORMAL SINUS RHYTHM POSSIBLE LEFT ATRIAL ENLARGEMENT NONSPECIFIC ST AND T WAVE ABNORMALITY ABNORMAL ECG WHEN COMPARED WITH ECG OF 09-NOV-2016 11:49, NO SIGNIFICANT CHANGE WAS FOUND Confirmed by SAEED GORDON MD ([id number]) on 11/24/2017 2:46:51 PM Referred By: Confirmed By:SAEED GORDON MD
[2017-11-24] MEDS ORDERED: METOCLOPRAMIDE HCL INJECTION 10 MG/2 ML VIAL IVPUSH PRN (15:34)
--- NOTE | 2017-11-24 15:53 | HP ---
CHIEF COMPLAINT: N/V, unsteady gait PCP: Dr. Carlson HISTORY OF PRESENT ILLNESS: 52 yo M w/ pmh of HTN, CAD, CVA x3, DM who presents with acute onset N/V, vertigo and gait ataxia/weakness beginning this AM. Pt with 3 prior CVAs (8, 3 and 1 year ago per pt; no residual deficits), currently only on ASA with good compliance. Pt lives at home independent in all ADLs. Pt states his brothers visited last night and he ingested two 6-packs of beer. He denies any symptoms at the time. Pt states he awoke at 4AM and felt thirsty, drank a glass of water and immediately became nauseous. Pt states he tried to walk to bathroom, however his legs felt too weak and unsteady fell back into bed. Pt also endorsed vertigo and lightheadness at the time, worsened by movement. Pt also states every time he attempted to stand, he experienced transient vision loss. Pt endorses multiple episodes of nonbloody, nonbilious emesis throughout AM. Pt then presented to ED from home. Denies any CHRISTIAN, SOB, palps, CP, ab pain, cough, diarrhea, dysuria, melena, f/c. No recent travel, prolonged immobilization or sick contacts. Pt with Echo 4-5 months ago, however unsure of results. States he received LHC last year in November, but again unsure of results. States his prior strokes were due to plaque in coronary arteries, endorsing 3-vessel disease, however has never received CABG. ER course was notable for: (1)CT head w/ results noted below (2)BP 180/108 on presentation (3)Ady Barnes, NS 1L given Recent Travel: None PAST MEDICAL HISTORY: HTN DM CAD CVA (x3, no residual deficits per pt) Prostate Ca HLD Diabetic neuropathy OA Asthma PAST SURGICAL HISTORY: Removal of L knee exostosis Social History: Smoking: none Alcohol: social drinkers, 2-3 drinks on weekends, recent binge of 2 6-packs yesterday Drugs: None Family History: Father of [place] in 90s, prior CVA Mother with lung CA, CAD, DM2 Allergies almond oil Allergy (Intermediate, Verified 11/24/17 10:48) Swelling blackwood flavor Allergy (Intermediate, Verified 11/24/17 10:48) Swelling shellfish derived Allergy (Intermediate, Verified 11/24/17 10:48) Swelling HOME MEDICATIONS: Home Medications Medication Instructions Recorded Metformin HCl [Glucophage] 500 mg PO BID 08/19/15 Lisinopril [Prinivil] 20 mg PO DAILY 11/04/16 Metoprolol Succinate [Toprol XL -] 25 mg PO DAILY #30 tab.sr.24h 11/08/16 Nitroglycerin [Nitrostat] 0.4 mg SL PRN 11/24/17 Pravastatin Sodium [Pravachol (Nf)] 40 mg PO HS 11/24/17 REVIEW OF SYSTEMS CONSTITUTIONAL: Absent: fever, chills, diaphoresis, generalized weakness, malaise, loss of appetite, weight change HEENT: Absent: rhinorrhea, nasal congestion, throat pain, throat swelling, difficulty swallowing, mouth swelling, ear pain, eye pain, visual changes CARDIOVASCULAR: Absent: chest pain, syncope, palpitations, irregular heart rate, lightheadedness , peripheral edema RESPIRATORY: Absent: cough, shortness of breath, dyspnea with exertion, orthopnea, wheezing, stridor, hemoptysis GASTROINTESTINAL: nausea, vomiting, Absent: abdominal pain, abdominal distension, diarrhea, constipation, melena, hematochezia GENITOURINARY: Absent: dysuria, frequency, urgency, hesitancy, hematuria, flank pain, genital pain MUSCULOSKELETAL: Absent: myalgia, arthralgia, joint swelling, back pain, neck pain SKIN: Absent: rash, itching, pallor HEMATOLOGIC/IMMUNOLOGIC: Absent: easy bleeding, easy bruising, lymphadenopathy, frequent infections ENDOCRINE: Absent: unexplained weight gain, unexplained weight loss, heat intolerance, cold intolerance NEUROLOGIC: dizziness, unsteady gait, Absent: headache, focal weakness or paresthesias, seizure, mental status changes, bladder or bowel incontinence PSYCHIATRIC: Absent: anxiety, depression, suicidal or homicidal ideation, hallucinations. PHYSICAL EXAMINATION Vital Signs - 24 hr 11/24/17 11/24/17 11/24/17 10:46 11:15 13:30 Temperature 97.3 F L Pulse Rate 76 Pulse Rate [ 80 Apical] Respiratory 18 Rate Blood Pressure 180/108 Blood Pressure 176/91 162/89 [Left Arm] O2 Sat by Pulse 98 100 Oximetry (%) GENERAL: Middle aged man, NAD, A&Ox3 HEAD: Normal with no signs of trauma. EYES: Wear glasses. Pupils equal, round and reactive to light, extraocular movements intact, sclera anicteric, conjunctiva clear. No lid lag. EARS, NOSE, THROAT: Ears normal, nares patent, oropharynx clear without exudates. Moist mucous membranes. NECK: Normal range of motion, supple without lymphadenopathy, JVD, or masses. No bruit appreciated. LUNGS: Breath sounds equal, clear to auscultation bilaterally. No wheezes, and no crackles. No accessory muscle use. HEART: Regular rate and rhythm, normal S1 and S2 without murmur, rub or gallop. ABDOMEN: Soft, nontender, not distended, normoactive bowel sounds, no guarding, no rebound, no masses. No hepatomegaly or splenomegaly. MUSCULOSKELETAL: Normal range of motion at all joints. No bony deformities or tenderness. No CVA tenderness. UPPER EXTREMITIES: 2+ pulses, warm, well-perfused. No cyanosis. No clubbing. No peripheral edema. LOWER EXTREMITIES: Petechial rash on R anterior ankle. 2+ pulses, warm, well- perfused. No calf tenderness. No peripheral edema. NEUROLOGICAL: L sided slight tongue deviation. 4+/5 strength with L shoulder elevation. 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 Decreased sensation to light touch in stocking distribution to ankles BL. Unsteady gait with ambulation. All other cranial nerves, muscle groups with preserved strength. Normal speech. PSYCHIATRIC: Cooperative. Good eye contact. Appropriate mood and affect. SKIN: Warm, dry, normal turgor, no rashes or lesions noted, normal capillary refill. Laboratory Results - last 24 hr CBC, BMP 11/24/17 11:56 11/24/17 11:56 11/24/17 11/24/17 11/24/17 11:56 11:56 11:56 WBC 12.0 H D RBC 4.84 Hgb 14.5 D Hct 42.3 MCV 87.5 MCH 29.9 MCHC 34.2 RDW 14.7 Plt Count 253 D MPV 9.4 Neutrophils % 65.5 Lymphocytes % 24.6 D Monocytes % 3.8 Eosinophils % 5.1 H Basophils % 1.0 PT with INR 10.30 INR 0.91 PTT (Actin FS) 22.4 L Sodium 135 L Potassium 5.3 H D Chloride 102 Carbon Dioxide 23 Anion Gap 10 BUN 12 Creatinine 1.2 Creat Clearance w eGFR > 60 Random Glucose 267 H D Calcium 8.9 Total Bilirubin 0.5 D AST 60 H D ALT 38 D Alkaline Phosphatase 63 Creatine Kinase 335 H Creatine Kinase Index 0.8 CK-MB (CK-2) 2.817 Troponin I 0.11 H D Total Protein 8.8 H Albumin 3.9 Lipase 168 No micro pending EKG 11/24 - rate 80, qtc 463, NAD, equivocal ST elevations in v2, prominent Twaves in v2 Head CT 11/24 - Impression: 1. Well demarcated infarction in the right gangliocapsular region as described above is new since MRI. This infarct is age indeterminate on CT. Please correlate clinically. If warranted, MRI may be obtained for further evaluation. 2. No acute intracranial hemorrhage , mass effects or hydrocephalus. 3. Chronic lacunar infarcts in bilateral thalami and left frontal subcortical white matter, unchanged from 11/06/2016. CXR 11/24 - Impression: Weak inspiration with resultant large heart and prominent central markings. ASSESSMENT/PLAN: 52 yo M w/ pmh of HTN, CAD, CVA x3, DM who presents with acute onset N/V, vertigo and gait ataxia/weakness beginning this AM. #Suspected CVA vs. vertebrobasilar insufficiency - no tpa given, as outside window; NIHSS 2 - cardiac monitoring - ASA daily - Statin - Neuro consult - Dr. Patricia - CT head as noted above - MRI - PT eval - Will start on plavix this admission - f/u echo - f/u carotid doppler - S+S eval; NPO until cleared #Elevated Trops - 0.11 x2 on admission, EKG unremarkable - trend trops q6h - repeat EKG in AM #Hyperkalemia - 5.3 on admission - give kayexylate - Daily BMPs - Trend #Leukocytosis - WBC 12; afebrile, likely reactive - trend WBC, fever curve - if febrile, send cultures, start abx #HTN - 180 systolic on presentation; permissive HTN in setting of suspected TIA/ CVA - Toprol XL 25 daily #DM2 - - ISS - BGM q4h - Consider A1C #CAD - pt reports 3-vessel dz - Cards consulted - Dr. Howell - ASA 325mg - f/u LHC results from 11/2016 #HLD - - c/w home statin - lipid panel FEN NS 75cc/hr Daily lytes NPO until S+S eval PPX HSQ Plan discussed with attending, Dr. Cristina Trejo, PGY1 Visit type - Emergency Visit Emergency Visit: Yes ED Registration Date: 11/24/17 Care time: The patient presented to the Emergency Department on the above date and was hospitalized for further evaluation of their emergent condition. - New Patient This patient is new to me today: Yes Date on this admission: 11/24/17 - Critical Care Critical Care patient: No Hospitalist Screening - Colonoscopy Questionnaire Colonoscopy Questionnaire: Colonoscopy Questionnaire - Patient: 50 - 75 years old and never had a screening colonoscopy: Unknown History of colon or rectal polyps, or CA: Unknown History of IBD, Crohn's disease or UC: Unknown History of abdominal radiation therapy as a child: Unknown - Relative: 1 with colon or rectal CA, or polyps at age 60 or younger: Unknown Colon or rectal CA diagnosed at age 45 or younger: Unknown Multiple relatives with colon or rectal CA: Unknown - Outcome: Screening Result: Negative Screen
[2017-11-24] MEDS ORDERED: NITROGLYCERIN SUBLINGUAL 1/150 0.4 MG TAB SL PRN (16:00)
--- NOTE | 2017-11-24 17:14 | PN ---
Teaching Attending Note Name of Resident: Alvarez Trejo ATTENDING PHYSICIAN STATEMENT I saw and evaluated the patient. I reviewed the resident's note and discussed the case with the resident. I agree with the resident's findings and plan as documented. 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 assoc with multiple episodes of non-bloody emesis and diaphoresis. assoc with numbness/tingling in his lower extremities causing ataxic gait. reports he drank a 6 pack last night which is atypical for him. Had cardiac cath a year ago and was told he had 3 blockages but no stents were placed. was never placed on an additional medication for stroke prevention from what he recalls and was never told to stop a medication due to bleeding. denies CP, SOB, fever, chills, blurred vision, slurred speech, OBJECTIVE: Last Vital Signs Temp Pulse Resp BP Pulse Ox 97.3 F L 80 18 162/89 100 11/24/17 11:15 11/24/17 13:30 11/24/17 10:46 11/24/17 13:30 11/24/17 13:30 General NAD CV S1 S2 RRR no murmur/rub/gallop no carotid bruits Lungs CTA B/L no wheezing/rales/rhonchi Extremities + R tongue deviation, + dysmetria on the L no pronator drift. + unsteady gait. 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 Judy Banks was called in the ER, NIHSS 2. 1. Acute/subacute right gangliocapsular infarct- Tele admission for continuous cardiac monitoring. TPA not given because out of the window. check MRI/MRI head and neck, echo and carotid doppler. NPO until [employer] eval or bedside eval is performed. Neuro, cardio and PT eval. wouls switch statin to high intensity like lipitor 40mg. on asa currenlty would start plavix unless some contraindication. as per chart review appears the last stroke it was not started due to pt having not being compliant. 2. Leukocytosis-liekly reactive. afebrile. CXR clear. no symptoms suggestive of infection. would hold abx at this time. 3. Pseudohyponatremia- Corrected Na 139 4. Hyperkalemia- no peaked T waves. give kayexylate. (pt is on aceI) 5. DM- hold oral agents. iss, bgm 6. HTN- allow for permissive HTN. cont betablocker 7. CAD s/p stents- on asa/plavix 8. prostate ca 9. DVT ppx- hep sq
[2017-11-24] MEDS: INSULIN SLIDING SCALE (NOVOLOG) 1 VIAL SQ SCH ×2 (18:50→23:43)
[2017-11-24] MEDS ORDERED: ASPIRIN 325 MG TABLET ONE (18:54)
[2017-11-24] MEDS ORDERED: INSULIN (NOVOLOG) ASPART 100 UNITS/ML 10ML VIAL ONE (18:56)
[2017-11-24] MEDS: ASPIRIN 325 MG TABLET PO SCH (18:59)
[2017-11-24] MEDS ORDERED: HEPARIN NA (PORCINE) 5,000 UNITS/ML 1ML VIAL ONE (21:00)
[2017-11-24] MEDS ORDERED: ATORVASTATIN CA 40 MG TABLET (FP) ONE (21:01)
[2017-11-24] MEDS: HEPARIN NA (PORCINE) 5,000 UNITS/ML 1ML VIAL SQ SCH (21:02)
[2017-11-24] MEDS: ATORVASTATIN CA 40 MG TABLET (FP) PO SCH ×2 (21:02→21:09)
[2017-11-24] MEDS ORDERED: SODIUM POLYSTYRENE SULFONATE 15 GM/60 ML BOTTLE PO ONE (22:00)
[2017-11-24] MEDS ORDERED: ATORVASTATIN CA 10 MG TABLET (FP) PO SCH (22:00)
[2017-11-24] MEDS ORDERED: SODIUM POLYSTYRENE SULFONATE 15 GM/60 ML BOTTLE ONE (22:12)
[2017-11-25] MEDS: SODIUM CHLORIDE 1,000 ML IV SCH ×3 (00:21→21:34)
[2017-11-25 04:25] VITALS: BMI 32.4
--- NOTE | 2017-11-25 04:26 | PN ---
Progress Note (short form) - Note Progress Note: Called by nurse as pt with elevated BP (176/102 L arm, 188/110 R arm). Pt with suspected TIA/CVA, will allow for permissive HTN <220/120. No indication for anti-HTN for first 24hrs. Pt examined and evaluated. No focal neurologic deficits noted on exam. Without current physical complaints, denies current dizziness or headache. Thank you Hoda Watkins MD PGY-1 Night team
--- NOTE | 2017-11-25 06:01 | PN ---
Physical Exam: SUBJECTIVE: Patient seen and examined by me this AM - No major overnight events. Nursing called night team for elevated BP of 188/ 110, however pt with permissive HTN <220/120. Pt still with lightheadness and vertigo with standing and ambulation; No f/c/n/v/d, cp, cough, sob, ab pain, back pain. Still endorses lower extremity weakness and gait instability with ambulation. No vision changes. Remains NPO, can undergo rapid bedside swallow eval OBJECTIVE: Vital Signs Intake & Output 11/22/17 11/23/17 11/24/17 11/25/17 23:59 23:59 23:59 23:59 Intake Total 50 Balance 50 Weight 86.183 kg 96.842 kg Period Temp Pulse Resp BP Sys/Dumont Pulse Ox Last 24 Hr 97.3 F-98.6 F 76-107 16-18 154-188/80-110 97-100 GENERAL: Middle aged man, NAD, A&Ox3 HEAD: Normal with no signs of trauma. EYES: Pupils equal, round and reactive to light, extraocular movements intact, sclera anicteric, conjunctiva clear. No lid lag. wears glasses EARS, NOSE, THROAT: Ears normal, nares patent, oropharynx clear without exudates. Moist mucous membranes. NECK: Normal range of motion, supple without lymphadenopathy, JVD, or masses. No bruit appreciated. LUNGS: Breath sounds equal, clear to auscultation bilaterally. No wheezes, and no crackles. No accessory muscle use. HEART: Regular rate and rhythm, normal S1 and S2 without murmur, rub or gallop. ABDOMEN: Soft, nontender, not distended, normoactive bowel sounds, no guarding, no rebound, no masses. No hepatomegaly or splenomegaly. MUSCULOSKELETAL: Normal range of motion at all joints. No bony deformities or tenderness. No CVA tenderness. UPPER EXTREMITIES: 2+ pulses, warm, well-perfused. No cyanosis. No clubbing. No peripheral edema. LOWER EXTREMITIES: still with petechial rash on R anterior ankle. 2+ pulses, warm, well-perfused. No calf tenderness. No peripheral edema. NEUROLOGICAL: +R sided slight subtle tongue deviation. 5/5 strength BL in all muscle groups. Decreased sensation to light touch in stocking distribution to ankles BL. Remains unsteady with ambulation. All other cranial nerves, muscle groups with preserved strength. Normal speech. PSYCHIATRIC: Cooperative. Good eye contact. Appropriate mood and affect. SKIN: Warm, dry, normal turgor, no rashes or lesions noted, normal capillary refill. Laboratory Results - last 24 hr CBC, BMP 11/25/17 07:25 11/25/17 07:25 11/24/17 11:56 11/24/17 11:56 11/24/17 11/24/17 11/24/17 11:56 11:56 11:56 WBC 12.0 H D RBC 4.84 Hgb 14.5 D Hct 42.3 MCV 87.5 MCH 29.9 MCHC 34.2 RDW 14.7 Plt Count 253 D MPV 9.4 Neutrophils % 65.5 Lymphocytes % 24.6 D Monocytes % 3.8 Eosinophils % 5.1 H Basophils % 1.0 PT with INR 10.30 INR 0.91 PTT (Actin FS) 22.4 L Sodium 135 L Potassium 5.3 H D Chloride 102 Carbon Dioxide 23 Anion Gap 10 BUN 12 Creatinine 1.2 Creat Clearance w eGFR > 60 POC Glucometer Random Glucose 267 H D Calcium 8.9 Total Bilirubin 0.5 D AST 60 H D ALT 38 D Alkaline Phosphatase 63 Creatine Kinase 335 H Creatine Kinase Index 0.8 CK-MB (CK-2) 2.817 Troponin I 0.11 H D Total Protein 8.8 H Albumin 3.9 Lipase 168 11/24/17 11/24/17 11/24/17 18:51 20:00 22:36 WBC RBC Hgb Hct MCV MCH MCHC RDW Plt Count MPV Neutrophils % Lymphocytes % Monocytes % Eosinophils % Basophils % PT with INR INR PTT (Actin FS) Sodium Potassium Chloride Carbon Dioxide Anion Gap BUN Creatinine Creat Clearance w eGFR POC Glucometer [id number] 152.71610 Random Glucose Calcium Total Bilirubin AST ALT Alkaline Phosphatase Creatine Kinase Creatine Kinase Index CK-MB (CK-2) Troponin I 0.11 H Total Protein Albumin Lipase 11/25/17 11/25/17 02:34 03:29 WBC RBC Hgb Hct MCV MCH MCHC RDW Plt Count MPV Neutrophils % Lymphocytes % Monocytes % Eosinophils % Basophils % PT with INR INR PTT (Actin FS) Sodium Potassium Chloride Carbon Dioxide Anion Gap BUN Creatinine Creat Clearance w eGFR POC Glucometer 161 Random Glucose Calcium Total Bilirubin AST ALT Alkaline Phosphatase Creatine Kinase Creatine Kinase Index CK-MB (CK-2) Troponin I 0.10 H Total Protein Albumin Lipase Active Medications Generic Name Dose Route Start Last Admin Trade Name Freq PRN Reason Stop Dose Admin Aspirin 325 mg 11/24/17 18:45 11/24/17 18:59 Asa - PO 325 mg DAILY ANGELITA Administration Atorvastatin Calcium 40 mg 11/24/17 22:00 11/24/17 21:09 Lipitor - PO Not Given HS ANGELITA Heparin Sodium (Porcine) 5,000 unit 11/24/17 22:00 11/24/17 21:02 Heparin - SQ 5,000 unit TID ANGELITA Administration Sodium Chloride 1,000 mls @ 75 mls/hr 11/24/17 21:45 11/25/17 00:21 Normal Saline - IV 75 mls/hr ASDIR ANGELITA Administration Influenza Virus Vaccine Quadrival 60 mcg 11/25/17 03:47 Flulaval Quad [id number] IM 11/25/17 03:48 .ONCE ONE Insulin Aspart 1 vial 11/24/17 16:30 11/24/17 23:43 Novolog Vial Sliding Scale - SQ Not Given ACHS [facility] Protocol Metoclopramide HCl 10 mg 11/24/17 15:34 Reglan Injection - IVPUSH Q6H PRN NAUSEA AND/OR VOMITING Metoprolol Succinate 25 mg 11/25/17 10:00 Toprol Xl - PO DAILY [facility] No micro pending EKG 11/24 - rate 80, qtc 463, NAD, equivocal ST elevations in v2, prominent Twaves in v2 Head CT 11/24 - Impression: 1. Well demarcated infarction in the right gangliocapsular region as described above is new since MRI. This infarct is age indeterminate on CT. Please correlate clinically. If warranted, MRI may be obtained for further evaluation. 2. No acute intracranial hemorrhage , mass effects or hydrocephalus. 3. Chronic lacunar infarcts in bilateral thalami and left frontal subcortical white matter, unchanged from 11/06/2016. CXR 11/24 - Impression: Weak inspiration with resultant large heart and prominent central markings. Carotid doppler 11/24 - Intimal thickening at bifurcation, R>L. ECHO 11/25 - pending MRI/MRA brain w/o contrast 11/25 - pending ASSESSMENT/PLAN: 52 yo M w/ pmh of HTN, CAD, CVA x3, DM who presents with acute onset N/V, vertigo and gait ataxia/weakness beginning this AM. Pt still with unsteady gait , vertigo/lightheadness with ambulation, however endorses improvement in N/V today. Will go for MRI/MRA this PM. Plan for discharge on ASA/plavix. #Suspected CVA vs. vertebrobasilar insufficiency - no tpa given, as outside window; NIHSS 2; carotid doppler studies as noted above - cardiac monitoring - ASA, plavix daily - Crestor 20mg daily - Neuro consult, recs appreciated - Dr. Layne - CT head as noted above - MRI/MRA pending - PT eval - f/u echo results - Started on regular diet; S+S recs appreciated -MBS ordered - Orthostatics #Elevated Trops - 0.11 x2 on admission, resolved; No CP noted - Consider repeat EKG tomorrow #Hyperkalemia - Resolved, 3.7 today - Daily BMPs - Trend #Leukocytosis - resolved, likely reactive; not infectious - trend WBC, fever curve - if febrile, send cultures, start abx #HTN - BP <160/90 per neuro recs - Toprol XL 25 daily - Restarted on home lisinopril today 20mg dQ #DM2 - - ISS - BGM q4h - Consider A1C #CAD - pt reports 3-vessel dz - Cards consulted, recs appreciated - Dr. Howell - ASA 81mg #HLD - Triglycerides in 425, cholesterol 214, LDL 126 - Crestor 20mg qD -Started on niacin, fish oil FEN NS 75cc/hr Daily lytes Regular diet PPX HSQ Plan discussed with attending, Dr. Cristina Trejo, PGY1 Visit type - Emergency Visit Emergency Visit: Yes ED Registration Date: 11/24/17 Care time: The patient presented to the Emergency Department on the above date and was hospitalized for further evaluation of their emergent condition. - New Patient This patient is new to me today: No - Critical Care Critical Care patient: No
[2017-11-25] MEDS: INSULIN SLIDING SCALE (NOVOLOG) 1 VIAL SQ SCH ×4 (06:44→21:34)
[2017-11-25] MEDS: HEPARIN NA (PORCINE) 5,000 UNITS/ML 1ML VIAL SQ SCH ×3 (06:46→21:34)
[2017-11-25] MEDS ORDERED: PNEUMOC 13-VAL CONJ-DIP CRM/PF 0.5 ML DISP.SYRIN IM ONE (07:45)
[2017-11-25 08:11] LABS: INR 0.98 (0.82-1.09); PROTHROMBIN TIME (PATIENT) 11.1 SEC (9.98-11.88)
[2017-11-25 08:14] LABS: ACTIVATED PTT 20.2 SECONDS (26.9-34.4)
[2017-11-25 08:18] LABS: BASO % 0.8 % (0-2.0); EOS % 3.6 % (0-4.5); HEMATOCRIT 37.9 % (35.4-49); LYMPH % 24.3 % (8-40); MCH 30.2 pg (25.7-33.7); MCHC 34.3 g/dl (32.0-35.9); MEAN CELL VOLUME 87.9 fl (80-96); MEAN PLT VOLUME 8.6 fl (7.5-11.1); MONO % 6.6 % (3.8-10.2); NEUT % 64.7 % (42.8-82.8); PLATELET COUNT 210 K/MM3 (134-434); RBC 4.31 M/mm3 (4.00-5.60); RDW 14.4 % (11.9-15.9); WHITE BLOOD COUNT 9.5 K/mm3 (4.0-10.0)
[2017-11-25 08:21] LABS: ALBUMIN 3.3 g/dl (3.4-5.0); ANION GAP 12 (8-16); BLOOD UREA NITROGEN 12 mg/dL (7-18); CALCIUM 8.3 mg/dL (8.5-10.1); CHLORIDE 102 mmol/L (98-107); CO2 25 mmol/L (21-32); CREATININE 0.9 mg/dL (0.7-1.3); GLUCOSE,RANDOM 162 mg/dL (74-106); PHOSPHOROUS 3.2 mg/dL (2.5-4.9); POTASSIUM 3.7 mmol/L (3.5-5.1); SGOT/AST 19 U/L (15-37); SGPT/ALT 23 U/L (12-78); SODIUM 139 mmol/L (136-145)
[2017-11-25 08:23] LABS: ALK PHOS 54 U/L (45-117); BILIRUBIN,TOTAL 0.6 mg/dL (0.2-1.0)
[2017-11-25 08:33] LABS: CHOLESTEROL 214 mg/dL (50-200); HDL CHOLESTEROL 45 mg/dL (40-60); TRIGLYCERIDES 425 mg/dL (35-160)
[2017-11-25] MEDS ORDERED: MECLIZINE HCL 25 MG TABLET (FP) PO PRN (09:12)
--- NOTE | 2017-11-25 09:21 | CONSULT ---
Consult - text type - Consultation Consultation Note: Neurology CHIEF COMPLAINT: N/V, unsteady gait, dizzyness HISTORY OF PRESENT ILLNESS: 52 yo M w/ pmh of HTN, CAD, CVA x3, DM who presented with acute onset N/V, vertigo and gait ataxia/weakness beginning morning of admission. Pt with 3 prior CVAs (8, 3 and 1 year ago per pt; no residual deficits), currently on ASA 325mg with reported compliance. He lives at home independent in all ADLs. Reportedly, brothers visited last night and he ingested two 6-packs of beer. He denied any symptoms at the time. He stated he awoke at 4AM and felt thirsty, drank a glass of water and immediately became nauseous. He stated he tried to walk to bathroom, however his legs felt too weak and unsteady fell back into bed. Pt also endorsed vertigo and lightheadness at the time, worsened by movement. Reportedly, every time he attempted to stand, he experienced transient vision loss. Pt endorses multiple episodes of nonbloody, nonbilious emesis throughout AM. Denied any CHRISTIAN, SOB, palps, CP, ab pain, cough, diarrhea, dysuria, melena, f/c. No recent travel, prolonged immobilization or sick contacts. Pt with Echo 4-5 months ago, however unsure of results. CT head completed in ER and demonstrated R basal ganglia infarct that is new compared to imaging from October 2016. No acute changes noted but chronic lacunar infarcts noted in b/l thalami and L frontal subcortical white matter. Not a TPA candidate as he was outside window. Carotid dopplers completed and also reviewed and did not demonstrate HD significant stenosis. He received a dose of Meclezine in the ER. Still feels dizzy this AM. Recent Travel: None PAST MEDICAL HISTORY: HTN DM CAD CVA (x3, no residual deficits per pt) Prostate Ca HLD Diabetic neuropathy OA Asthma PAST SURGICAL HISTORY: Removal of L knee exostosis Social History: Smoking: none Alcohol: social drinkers, 2-3 drinks on weekends, recent binge of 2 6-packs yesterday Drugs: None Family History: Father of [place] in 90s, prior CVA Mother with lung CA, CAD, DM2 Allergies almond oil Allergy (Intermediate, Verified 11/24/17 10:48) Swelling blackwood flavor Allergy (Intermediate, Verified 11/24/17 10:48) Swelling shellfish derived Allergy (Intermediate, Verified 11/24/17 10:48) Swelling HOME MEDICATIONS: Home Medications Medication Instructions Recorded Metformin HCl [Glucophage] 500 mg PO BID 08/19/15 Lisinopril [Prinivil] 20 mg PO DAILY 11/04/16 Metoprolol Succinate [Toprol XL -] 25 mg PO DAILY #30 tab.sr.24h 11/08/16 Nitroglycerin [Nitrostat] 0.4 mg SL PRN 11/24/17 Pravastatin Sodium [Pravachol (Nf)] 40 mg PO HS 11/24/17 REVIEW OF SYSTEMS CONSTITUTIONAL: Absent: fever, chills, diaphoresis, generalized weakness, malaise, loss of appetite, weight change HEENT: Absent: rhinorrhea, nasal congestion, throat pain, throat swelling, difficulty swallowing, mouth swelling, ear pain, eye pain, visual changes CARDIOVASCULAR: Absent: chest pain, syncope, palpitations, irregular heart rate, lightheadedness , peripheral edema RESPIRATORY: Absent: cough, shortness of breath, dyspnea with exertion, orthopnea, wheezing, stridor, hemoptysis GASTROINTESTINAL: nausea, vomiting, Absent: abdominal pain, abdominal distension, diarrhea, constipation, melena, hematochezia GENITOURINARY: Absent: dysuria, frequency, urgency, hesitancy, hematuria, flank pain, genital pain MUSCULOSKELETAL: Absent: myalgia, arthralgia, joint swelling, back pain, neck pain SKIN: Absent: rash, itching, pallor HEMATOLOGIC/IMMUNOLOGIC: Absent: easy bleeding, easy bruising, lymphadenopathy, frequent infections ENDOCRINE: Absent: unexplained weight gain, unexplained weight loss, heat intolerance, cold intolerance NEUROLOGIC: dizziness, unsteady gait, Absent: headache, focal weakness or paresthesias, seizure, mental status changes, bladder or bowel incontinence PSYCHIATRIC: Absent: anxiety, depression, suicidal or homicidal ideation, hallucinations. PHYSICAL EXAMINATION Vital Signs Period Temp Pulse Resp BP Sys/Dumont Pulse Ox Last 24 Hr 97.3 F-98.6 F 76-107 16-18 149-188/80-110 97-100 GENERAL: Middle aged man, NAD, A&Ox3 HEAD: Normal with no signs of trauma. EYES: Wear glasses. Pupils equal, round and reactive to light, extraocular movements intact, sclera anicteric, conjunctiva clear. No lid lag. EARS, NOSE, THROAT: Ears normal, nares patent, oropharynx clear without exudates. Moist mucous membranes. NECK: Normal range of motion, supple without lymphadenopathy, JVD, or masses. No bruit appreciated. LUNGS: Breath sounds equal, clear to auscultation bilaterally. No wheezes, and no crackles. No accessory muscle use. HEART: Regular rate and rhythm, normal S1 and S2 without murmur, rub or gallop. ABDOMEN: Soft, nontender, not distended, normoactive bowel sounds, no guarding, no rebound, no masses. No hepatomegaly or splenomegaly. MUSCULOSKELETAL: Normal range of motion at all joints. No bony deformities or tenderness. No CVA tenderness. UPPER EXTREMITIES: 2+ pulses, warm, well-perfused. No cyanosis. No clubbing. No peripheral edema. LOWER EXTREMITIES: Petechial rash on R anterior ankle. 2+ pulses, warm, well- perfused. No calf tenderness. No peripheral edema. NEUROLOGICAL: No slurred speech, no facial droop, L side intact, R side 5-/5, slight decreased sensation to light touch in stocking distribution to ankles BL. finger to nose intact. PSYCHIATRIC: Cooperative. Good eye contact. Appropriate mood and affect. SKIN: Warm, dry, normal turgor, no rashes or lesions noted, normal capillary refill. CBCD WBC 9.5 K/mm3 (4.0-10.0) 11/25/17 07:25 RBC 4.31 M/mm3 (4.00-5.60) 11/25/17 07:25 Hgb 13.0 GM/dL (11.7-16.9) D 11/25/17 07:25 Hct 37.9 % (35.4-49) 11/25/17 07:25 MCV 87.9 fl (80-96) 11/25/17 07:25 MCHC 34.3 g/dl (32.0-35.9) 11/25/17 07:25 RDW 14.4 % (11.9-15.9) 11/25/17 07:25 Plt Count 210 K/MM3 (134-434) 11/25/17 07:25 MPV 8.6 fl (7.5-11.1) 11/25/17 07:25 CMP Sodium 139 mmol/L (136-145) 11/25/17 07:25 Potassium 3.7 mmol/L (3.5-5.1) D 11/25/17 07:25 Chloride 102 mmol/L (98-107) 11/25/17 07:25 Carbon Dioxide 25 mmol/L (21-32) 11/25/17 07:25 Anion Gap 12 (8-16) 11/25/17 07:25 BUN 12 mg/dL (7-18) 11/25/17 07:25 Creatinine 0.9 mg/dL (0.7-1.3) D 11/25/17 07:25 Creat Clearance w eGFR > 60 (>60) 11/25/17 07:25 Random Glucose 162 mg/dL (74-106) H D 11/25/17 07:25 Calcium 8.3 mg/dL (8.5-10.1) L 11/25/17 07:25 Total Bilirubin 0.6 mg/dL (0.2-1.0) 11/25/17 07:25 AST 19 U/L (15-37) D 11/25/17 07:25 ALT 23 U/L (12-78) D 11/25/17 07:25 Alkaline Phosphatase 54 U/L (45-117) 11/25/17 07:25 Total Protein 7.0 g/dl (6.4-8.2) D 11/25/17 07:25 Albumin 3.3 g/dl (3.4-5.0) L 11/25/17 07:25 CARDIAC ENZYMES Creatine Kinase 335 IU/L (39-308) H 11/24/17 11:56 Troponin I 0.10 ng/ml (0.00-0.05) H 11/25/17 02:[address] 11/24 - Impression: 1. Well demarcated infarction in the right gangliocapsular region as described above is new since MRI. This infarct is age indeterminate on CT. Please correlate clinically. If warranted, MRI may be obtained for further evaluation. 2. No acute intracranial hemorrhage , mass effects or hydrocephalus. 3. Chronic lacunar infarcts in bilateral thalami and left frontal subcortical white matter, unchanged from 11/06/2016. CXR 11/24 - Impression: Weak inspiration with resultant large heart and prominent central markings. 11/24 Carotid Doppler- No hemodynamically significant stenosis ASSESSMENT/PLAN: 52 yo M w/ pmh of HTN, CAD, CVA x3, DM who presented with acute onset N/V, vertigo and gait ataxia/weakness beginning morning of admission. Pt with 3 prior CVAs (8, 3 and 1 year ago per pt; no residual deficits), currently on ASA 325mg with reported compliance. CT head completed in ER and demonstrated R basal ganglia infarct that is new compared to imaging from October 2016. No acute changes noted but chronic lacunar infarcts noted in b/l thalami and L frontal subcortical white matter. MRI brain ordered to further evaluate infarct Specific attention to cerebellar structures recommended Carotid dopplers completed and also reviewed and did not demonstrate HD significant stenosis. He received a dose of Meclezine in the ER. Still feels dizzy this AM. Ordered Meclezine 25mg PRN Spoke to nurse and recommended increased hydration I ordered physcial therapy Monitor blood pressure, goal < 160/90 for now Goal < 130/80 as outpatient Currently on ASA 325, if no contraindications, then would recommended dual antiplatelet regiment However would decrease ASA to 81mg and add Plavix 75mg for increased CVA prevention (combo of ASA 325 and Plavix 75 may be too much of bleed risk) Monitor for Afib, in which case AC would recommended and would not put patient on dual Antiplatlet, Cardiology follow up Follow up troponins Follow up Echo Continue Pravastatin, goal LDL < 70 Fall precautions
[2017-11-25] MEDS: ASPIRIN 325 MG TABLET PO SCH (09:25)
[2017-11-25] MEDS ORDERED: PNEUMOCOCCAL 23 VACCINE 0.5 ML VIAL IM ONE (09:45)
[2017-11-25] MEDS ORDERED: metoPROLOL SUCCINATE 25 MG TAB.SR.24H (FP) PO SCH (10:00)
--- NOTE | 2017-11-25 10:35 | CON.CARD ---
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 assoc with multiple episodes of non- bloody emesis and diaphoresis. assoc with numbness/tingling in his lower extremities causing ataxic gait. reports he drank a 6 pack last night which is atypical for him. Had cardiac cath a year ago and was told he had 3 blockages but no stents were placed. was never placed on an additional medication for stroke prevention from what he recalls and was never told to stop a medication due to bleeding. 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 Home Medications - Allergies Allergies/Adverse Reactions: Allergies Allergy/AdvReac Type Severity Reaction Status Date / Time almond oil Allergy Intermediate Swelling Verified 11/24/17 10:48 blackwood flavor Allergy Intermediate Swelling Verified 11/24/17 10:48 shellfish derived Allergy Intermediate Swelling Verified 11/24/17 10:48 - Home Medications Home Medications: Ambulatory Orders Metformin HCl [Glucophage] 500 mg PO DAILY 08/19/15 Lisinopril [Prinivil] 20 mg PO DAILY 11/04/16 Metoprolol Succinate [Toprol XL -] 25 mg PO DAILY #30 tab.sr.24h 11/08/16 Nitroglycerin [Nitrostat] 0.4 mg SL PRN 11/24/17 Pravastatin Sodium [Pravachol (Nf)] 40 mg PO HS 11/24/17 Aspirin [ASA -] 325 mg PO DAILY 11/25/17 Family Disease History - Family Disease History Family Disease History: Other: Father (stroke) Review of Systems - Review of Systems Constitutional: reports: No Symptoms Eyes: reports: No Symptoms HENT: reports: No Symptoms Neck: reports: No Symptoms Cardiovascular: reports: No Symptoms Gastrointestinal: reports: No Symptoms Genitourinary: reports: No Symptoms Breasts: reports: No Symptoms Reported Musculoskeletal: reports: No Symptoms Integumentary: reports: No Symptoms Neurological: reports: Dizziness Endocrine: reports: No Symptoms Hematology/Lymphatic: reports: No Symptoms Psychiatric: reports: No Symptoms Vital Signs: Vital Signs Temperature 98.2 F 11/25/17 06:41 Pulse Rate 90 11/25/17 06:41 Respiratory Rate 16 11/25/17 07:00 Blood Pressure 149/93 11/25/17 06:41 O2 Sat by Pulse Oximetry (%) 97 11/24/17 23:34 Constitutional: Yes: Well Nourished, No Distress, Calm Eyes: Yes: WNL, Conjunctiva Clear, EOM Intact HENT: Yes: WNL, Atraumatic, Normocephalic Neck: Yes: WNL, Supple, Trachea Midline Respiratory: Yes: WNL, Regular, CTA Bilaterally Gastrointestinal: Yes: WNL, Normal Bowel Sounds Renal/: Yes: WNL Cardiovascular: Yes: WNL, Regular Rate and Rhythm Musculoskeletal: Yes: WNL Extremities: Yes: WNL Integumentary: Yes: WNL Neurological: Yes: Alert, Oriented, Weakness ...Motor Strength: WNL Psychiatric: Yes: WNL, Alert, Oriented - Other Data Labs, Other Data: CBC, BMP 11/25/17 07:25 11/25/17 07:25 INR, PTT INR 0.98 (0.82-1.09) 11/25/17 07:25 Troponin, BNP 11/24/17 11/24/17 11/25/17 11:56 20:00 02:34 Troponin I 0.11 H D 0.11 H 0.10 H Troponin, BNP 11/24/17 11/24/17 11/25/17 11:56 20:00 02:34 Troponin I 0.11 H D 0.11 H 0.10 H Laboratory Tests 11/24/17 11/24/17 11/24/17 11:56 11:56 11:56 WBC 12.0 H D RBC 4.84 Hgb 14.5 D Hct 42.3 MCV 87.5 MCH 29.9 MCHC 34.2 RDW 14.7 Plt Count 253 D MPV 9.4 Neutrophils % 65.5 Lymphocytes % 24.6 D Monocytes % 3.8 Eosinophils % 5.1 H Basophils % 1.0 PT with INR 10.30 INR 0.91 PTT (Actin FS) 22.4 L Sodium 135 L Potassium 5.3 H D Chloride 102 Carbon Dioxide 23 Anion Gap 10 BUN 12 Creatinine 1.2 Creat Clearance w eGFR > 60 POC Glucometer Random Glucose 267 H D Calcium 8.9 Phosphorus Magnesium Total Bilirubin 0.5 D AST 60 H D ALT 38 D Alkaline Phosphatase 63 Creatine Kinase 335 H Creatine Kinase Index 0.8 CK-MB (CK-2) 2.817 Troponin I 0.11 H D Total Protein 8.8 H Albumin 3.9 Triglycerides Cholesterol Total LDL Cholesterol HDL Cholesterol Lipase 168 11/24/17 11/24/17 11/24/17 18:51 20:00 22:36 WBC RBC Hgb Hct MCV MCH MCHC RDW Plt Count MPV Neutrophils % Lymphocytes % Monocytes % Eosinophils % Basophils % PT with INR INR PTT (Actin FS) Sodium Potassium Chloride Carbon Dioxide Anion Gap BUN Creatinine Creat Clearance w eGFR POC Glucometer [phone] Random Glucose Calcium Phosphorus Magnesium Total Bilirubin AST ALT Alkaline Phosphatase Creatine Kinase Creatine Kinase Index CK-MB (CK-2) Troponin I 0.11 H Total Protein Albumin Triglycerides Cholesterol Total LDL Cholesterol HDL Cholesterol Lipase 11/25/17 11/25/17 11/25/17 02:34 03:29 06:03 WBC RBC Hgb Hct MCV MCH MCHC RDW Plt Count MPV Neutrophils % Lymphocytes % Monocytes % Eosinophils % Basophils % PT with INR INR PTT (Actin FS) Sodium Potassium Chloride Carbon Dioxide Anion Gap BUN Creatinine Creat Clearance w eGFR POC Glucometer 161 167 Random Glucose Calcium Phosphorus Magnesium Total Bilirubin AST ALT Alkaline Phosphatase Creatine Kinase Creatine Kinase Index CK-MB (CK-2) Troponin I 0.10 H Total Protein Albumin Triglycerides Cholesterol Total LDL Cholesterol HDL Cholesterol Lipase 11/25/17 11/25/17 11/25/17 07:25 07:25 07:25 WBC 9.5 RBC 4.31 Hgb 13.0 D Hct 37.9 MCV 87.9 MCH 30.2 MCHC 34.3 RDW 14.4 Plt Count 210 MPV 8.6 Neutrophils % 64.7 Lymphocytes % 24.3 Monocytes % 6.6 Eosinophils % 3.6 Basophils % 0.8 PT with INR 11.10 INR 0.98 PTT (Actin FS) 20.2 L Sodium 139 Potassium 3.7 D Chloride 102 Carbon Dioxide 25 Anion Gap 12 BUN 12 Creatinine 0.9 D Creat Clearance w eGFR > 60 POC Glucometer Random Glucose 162 H D Calcium 8.3 L Phosphorus 3.2 Magnesium 2.0 Total Bilirubin 0.6 AST 19 D ALT 23 D Alkaline Phosphatase 54 Creatine Kinase Creatine Kinase Index CK-MB (CK-2) Troponin I Total Protein 7.0 D Albumin 3.3 L Triglycerides 425 H D Cholesterol 214 H D Total LDL Cholesterol 126 H D HDL Cholesterol 45 D Lipase 11/25/17 07:25 WBC RBC Hgb Hct MCV MCH MCHC RDW Plt Count MPV Neutrophils % Lymphocytes % Monocytes % Eosinophils % Basophils % PT with INR INR PTT (Actin FS) Sodium Potassium Chloride Carbon Dioxide Anion Gap BUN Creatinine Creat Clearance w eGFR POC Glucometer Random Glucose Calcium Phosphorus Magnesium Total Bilirubin AST ALT Alkaline Phosphatase Creatine Kinase Creatine Kinase Index CK-MB (CK-2) Troponin I Total Protein Albumin Triglycerides Cancelled Cholesterol Cancelled Total LDL Cholesterol Cancelled HDL Cholesterol Cancelled Lipase Imaging - Results Chest X-ray: Image Reviewed (increased markings) EKG: Image Reviewed (sr rep abn) Problem List - Problems (1) Cerebrovascular accident (CVA) Code(s): I63.9 - CEREBRAL INFARCTION, UNSPECIFIED (2) Vertigo Code(s): R42 - DIZZINESS AND GIDDINESS (3) Asthma exacerbation Code(s): J45.901 - UNSPECIFIED ASTHMA WITH (ACUTE) EXACERBATION (4) Blurred vision Code(s): H53.8 - OTHER VISUAL DISTURBANCES (5) CHF (congestive heart failure) Code(s): I50.9 - HEART FAILURE, UNSPECIFIED (6) Cervical strain, acute Code(s): S16.1XXA - STRAIN OF MUSCLE, FASCIA AND TENDON AT NECK LEVEL, INIT Qualifiers: Encounter type: initial encounter Qualified Code(s): S16.1XXA - Strain of muscle, fascia and tendon at neck level, initial encounter (7) Chronic shoulder pain Code(s): M25.519 - PAIN IN UNSPECIFIED SHOULDER; G89.29 - OTHER CHRONIC PAIN Qualifiers: Laterality: right Qualified Code(s): M25.511 - Pain in right shoulder (8) DVT prophylaxis Code(s): EJQ0492 - (9) Diabetes mellitus Code(s): E11.9 - TYPE 2 DIABETES MELLITUS WITHOUT COMPLICATIONS (10) Blanchard cardiac risk >20% in next 10 years Code(s): Z91.89 - OTH PERSONAL RISK FACTORS, NOT ELSEWHERE CLASSIFIED (11) Hyperglycemia Code(s): R73.9 - HYPERGLYCEMIA, UNSPECIFIED (12) Hyperlipidemia Code(s): E78.5 - HYPERLIPIDEMIA, UNSPECIFIED Qualifiers: Hyperlipidemia type: unspecified Qualified Code(s): E78.5 - Hyperlipidemia , unspecified (13) Hypertension Code(s): I10 - ESSENTIAL (PRIMARY) HYPERTENSION Qualifiers: Hypertension type: essential hypertension Qualified Code(s): I10 - Essential (primary) hypertension (14) Musculoskeletal pain Code(s): M79.1 - MYALGIA (15) Obesity Code(s): E66.9 - OBESITY, UNSPECIFIED (16) Sprain of foot, right Code(s): S93.601A - UNSPECIFIED SPRAIN OF RIGHT FOOT, INITIAL ENCOUNTER Qualifiers: Encounter type: initial encounter Qualified Code(s): S93.601A - Unspecified sprain of right foot, initial encounter (17) Sprain of right ankle Code(s): S93.401A - SPRAIN OF UNSPECIFIED LIGAMENT OF RIGHT ANKLE, INIT ENCNTR Qualifiers: Encounter type: initial encounter Involved ligament of ankle: unspecified ligament Qualified Code(s): S93.401A - Sprain of unspecified ligament of right ankle, initial encounter (18) Visual field cut Code(s): H53.40 - UNSPECIFIED VISUAL FIELD DEFECTS Assessment/Plan Acute/subacute right gangliocapsular infarct- no events on cardica monitor. awaiting all tests to be completed. dizzyness can be due to vertebral insufficiency vs orthostatic. check orthostatic. Neuro, cardio and PT eval. switch statin to crestor. add plavix. cont asa. Severe multivessel CAD; pt deciding on CABG vs PCI CVA HTN DM hyperlipidemia overweight positive tnis noncomplience plan telemetry dvt plx Neuro f/u gree with DAPT
--- NOTE | 2017-11-25 10:43 | CONSULT ---
Admitting History and Physical - Primary Care Physician PCP: Idalia Evans - Admission History of Present Illness: 52 yo M w/ pmh of HTN, CAD, CVA x3, DM who presents with acute onset N/V, vertigo and gait ataxia/weakness Seen by me 11/05/16 This is a 51 y/o male with a past medical history of CVA x2 ( 04/2016, 2011, no residual), Hypertension, Hyperlipidemia, Diabetes Mellitus, Peripheral Neuropathy, Arthritis. Who presents to the emergency department with tongue, left facial numbness, and left sided weakness since 17:07 today. Patient reports after taking a new medication Vit B12, his tongue became numb with the numbness radiating to the left side of his face. He then reports, the left side of his body became numb, and that he could not move his left leg. Pt reported improvement in symptoms.He is now able to ambulate. H/o CVA x 2. He was "Blind for 1.5 years' and suddenly vision returned. Impression: Language/swallowing intact. No dysarthria. Moderate dysphonia at present. Pt reports snf hx of dysphonia. Vocal folds never seen visualized by ENT. 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 h/o ETOH abuse. Reports drinks a "6 pack on Fridays now but no more the rest of the week." He denies dysphagia and heartburn. ] An ENT appt was set up for pt at that time, however, pt did not follow through. Pt reports intermittent cough while drinking. 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 Well demarcated infarction in the right gangliocapsular region as described above is new since MRI. This infarct is age indeterminate on CT. Please correlate clinically. If warranted, MRI may be obtained for further evaluation. 2. No acute intracranial hemorrhage, mass effects or hydrocephalus. 3. Chronic lacunar infarcts in bilateral thalami and left frontal subcortical white matter , unchanged from 11/06/2016.) MRI: Pending - General Mental Status: Alert and Oriented, Awake and Alert, Able to Follow Commands Attention: Intact Ability to Follow Directions: Excellent Head/Neck Control: WFL - Hearing Hearing: Normal Hearing Aide: No Speech Evaluation - Communication Primary Language: BOLIVIAN Communication: Yes: Within Normal Limits - Speech Production Able to Make Needs Known: Yes: WNL Intelligibility: Yes: Mildly Impaired - Speech Characteristics Voice Loudness: Mildly Soft/Quiet Voice Pitch: Yes: Normal Voice Phonatory-based Quality: Yes: Hoarse, Dysphonia Speech Clarity: < 100% Nasal Resonance: Normal Articulation: Yes: Precise Rate of Speech: Intact Voice, Other Observations: Yes: Inadequate Breath Support - Language/Auditory Comprehension Observation: Able to respond to yes/no queries: Yes, Comprehends Conversational Speech: Yes - Language/Verbal Expression Able to Respond to Simple Queries: Yes: WNL Able to Communicate Wants and Needs: Yes: WNL Functional Communication Status: Yes: WNL Attention: Yes: Intact - Memory/Perception senior living Memory: Yes: WNL Short Term Memory: Yes: WNL - Swallow Evaluation/Bedside Assessment Current Nutritional Intake: NPO Oral Secretions: Yes: WFL Dentition: Yes: Adequate Facial Symmetry at Rest: Symmetrical Facial Symmetry on Retraction: Symmetrical Facial Movement: Controlled Sensation: Normal Against Resistance Opening: Normal Against Resistance Closing: Normal Pucker Lips: Normal Smile: Normal Lingual Movement: Normal, Symmetric Lingual Speed of Movement: Normal Lingual Movement Strgth Against Opposition: Normal Lingual Movement Characteristics: Normal Velopharyngeal Movement: Normal Laryngeal Elevation: WFL Laryngeal Movement: Able to Palpate Rate of Intake: WFL Bolus Size: WFL Labial Seal: WFL Chewing: WFL Oral Prep Time: WFL A-P Transit: WFL Pocketing: None Coughing/Throat Clear: No Change in Voice: No Recommendations - Speech Evaluation, Impression/Plan Impression: Pending MRI. senior living Dysphonia. Needs visualization of vocal cords to r/o structural impairment vs dysfunction/paralysis.ETOH abuse.Denies smoking. Pt has never been evaluated by ENT. Pt reports intermittent cough while drinking. (-) 3 oz water test. - Dysphagia Impressions/Plan Dysphagia Impressions: Mild Impairment, Ongoing Evaluation *Silent aspiration: cannot be R/O at bedside Dysphagia Treatment Plan: Small Bites, Chin Tuck/Down, Elevate HOB during feed Recommendations: ENT Consult, Modified Barium Swallow - Recommendations Medication Administration: Whole with water Liquids: Thin Liquids, Other (observe tolerance)
[2017-11-25] MEDS ORDERED: FLU VACCINE QUAD 60 MCG/0.5 ML (MDV 17-18) IM ONE (11:00)
--- NOTE | 2017-11-25 12:40 | PN ---
Teaching Attending Note Name of Resident: Alvarez Trejo ATTENDING PHYSICIAN STATEMENT I saw and evaluated the patient. I reviewed the resident's note and discussed the case with the resident. I agree with the resident's findings and plan as documented. SUBJECTIVE:remains dizzy. worse on standing up. denies CP, SOB, fever, chills, N /v/C/d OBJECTIVE: Last Vital Signs Temp Pulse Resp BP Pulse Ox 98.2 F 95 H 16 148/91 97 11/25/17 10:00 11/25/17 10:00 11/25/17 10:11/25/17 10:11/24/17 23:34 General NAD, partially blind CV S1 s2 RRR no murmur/rub/gallop lungs CTA B/L no wheezing/rales/rhonchi Abdomen soft NT/ND Neuro +tongue deviation, +dysmetria in the Left. no dysdakinesia. sensation and strength grossly intact. negative pronator/heel to gutierres. ASSESSMENT AND PLAN: 52yo M with PMH CVA x3 (2011/2015/2016 with residual L weakness and blindness with has resolved), HTN, DM, CAD s/p stents, prostate ca presented to the ER due to dizzyness when he awoke this AM. Judy Banks was called in the ER, NIHSS 2. 1. Acute/subacute right gangliocapsular infarct- no events on cardica monitor. awaiting all tests to be completed. dizzyness can be due to vertebral insufficiency vs orthostatic. check orthostatic. Neuro, cardio and PT eval. switch statin to crestor. add plavix. cont asa. 2. Leukocytosis-liekly reactive. afebrile. CXR clear. no symptoms suggestive of infection. would hold abx at this time. 3. Pseudohyponatremia- Corrected Na 139 4. Hyperkalemia- no peaked T waves.s/p kayexylate. resolved 5. DM- hold oral agents. iss, bgm 6. HTN-will need to control better. re-start lisinopril. cont betablocker 7. CAD s/p stents- on asa/plavix 8. prostate ca 9. DVT ppx- hep sq
[2017-11-25] MEDS: CLOPIDOGREL BISULFATE 75 MG TABLET (FP) PO SCH (13:00)
--- NOTE | 2017-11-25 16:52 | MSN ---
Progress Note (SOAP) - Subjective Chief Complaint: dizziness, unsteady gait, nausea and vomiting History of Present Illness: Alexandr Jackson is a 52 year old male with a PMHx of HTN, DM, CAD, ischemic stroke x3, prostate CA, hyperlipidemia, diabetic neuropathy, OA, arthritis who was admitted to the hospital after having a bout of dizziness, unsteady gait, nausea and vomiting, vertigo, and transient vision loss. Patient had several episodes of non bloody, non bilious vomiting. In the ED, BP was 180/108. Troponins were slightly elevated at 0.11 and downtrended to 0.10. Patient was given [place], Zofran, and 1L NS. Head CT showed an age indeterminate right gangliocapsular infarction that was new since his previous head CT on 11/06/16. Additional finding showed chronic lacunar infaracts in the bilateral thalami and subcortical white matter. Patient was admitted and placed on telemetry, given aspirin, neuro checks, Plaxix, upgraded statin to Crestor 20mg, kept NPO, PT evaluation, and neurology was consulted. Overnight from admission, patient had an episode of hypertension at 188/110. Patient was allowed a permissive hypertension was restarted on Toprol XL 25mg daily and lisinopril 20mg daily. Patient was seen and examined at the bedside. Patient complained of dizziness and unsteadiness. Patient denied chest pain, shortness of breath, muscle weakness, loss of sensation from his baseline numbness in his feet, abd pain, constipation, and diarrhea. Patient states his nausea and vomiting improved and he has not had further episodes. - Current Medications Current Medications: Active Medications Aspirin (Ecotrin -) 81 mg PO DAILY [facility] Clopidogrel Bisulfate (Plavix -) 75 mg PO DAILY [facility] Last Admin: 11/25/17 13:00 Dose: 75 mg Heparin Sodium (Porcine) (Heparin -) 5,000 unit SQ TID [facility] Last Admin: 11/25/17 13:44 Dose: 5,000 unit Sodium Chloride (Normal Saline -) 1,000 mls @ 75 mls/hr IV ASDIR [facility] Last Admin: 11/25/17 09:25 Dose: 75 mls/hr Insulin Aspart (Novolog Vial Sliding Scale -) 1 vial SQ ACHS [facility] PRN Reason: Protocol Last Admin: 11/25/17 13:00 Dose: 2 units Lisinopril (Prinivil) 20 mg PO DAILY [facility] Meclizine HCl (Antivert -) 25 mg PO TID PRN PRN Reason: VERTIGO Metoclopramide HCl (Reglan Injection -) 10 mg IVPUSH Q6H PRN PRN Reason: NAUSEA AND/OR VOMITING Metoprolol Succinate (Toprol Xl -) 25 mg PO DAILY [facility] Last Admin: 11/25/17 09:25 Dose: 25 mg Niacin (Niacin) 500 mg PO BID [facility] [id number] Ethyl Esters (Lovaza -) 2 gm PO BID [facility] Rosuvastatin Calcium (Crestor -) 20 mg PO [facility] - Objective Vital Signs: Vital Signs Temperature 98.2 F 11/25/17 10:00 Pulse Rate 94 H 11/25/17 14:00 Respiratory Rate 16 11/25/17 10:00 Blood Pressure 165/96 11/25/17 14:00 O2 Sat by Pulse Oximetry (%) 97 11/24/17 23:34 Constitutional: Yes: Well Nourished, No Distress, Calm Eyes: Yes: WNL, Conjunctiva Clear, EOM Intact, PERRL HENT: Yes: WNL, Atraumatic, Normocephalic Neck: Yes: WNL, Supple, Trachea Midline Cardiovascular: Yes: WNL, Regular Rate and Rhythm, S1, S2 Respiratory: Yes: WNL, Regular, CTA Bilaterally Gastrointestinal: Yes: WNL, Normal Bowel Sounds, Soft Musculoskeletal: Yes: WNL Extremities: Yes: WNL Edema: No Integumentary: Yes: WNL Neurological: Yes: WNL, Alert, Oriented, Unsteady Gait (+Romberg test), Other ( R tongue deviation, intrinsic tongue muscle intact, all other CN intact. Dysmetria with finger to nose on L side. No dysdiadochokinesia) ...Motor Strength: Yes: WNL (5/5 bilateral on upper and lower extremities) Psychiatric: Yes: WNL, Alert, Oriented Labs Lab Results: CBC, BMP 11/25/17 07:25 11/25/17 07:25 Problem List - Problems (1) Cerebrovascular accident (CVA) Code(s): I63.9 - CEREBRAL INFARCTION, UNSPECIFIED (2) Vertigo Code(s): R42 - DIZZINESS AND GIDDINESS (3) Diabetes mellitus Code(s): E11.9 - TYPE 2 DIABETES MELLITUS WITHOUT COMPLICATIONS (4) Hypertension Code(s): I10 - ESSENTIAL (PRIMARY) HYPERTENSION Qualifiers: Hypertension type: essential hypertension Qualified Code(s): I10 - Essential (primary) hypertension Assessment/Plan Suspected stroke vs. vertebrobasilar insufficiency - telemetry monitoring - Neuro checks - ASA 81mg - Crestor 25mg - Placix 75mg - Neurology consulted, input appreciated - CT head showed new since 11/06/16 right gangliocapsular infarction that is age indeterminate, chronic lacunar infarcts in bilateral thalami and left front subcortical white matter - MRI/MRA ordered, results pending - PT eval - Carotid doppler showed small plaques as common carotid bifurcation R>L, no significant stenosis - f/u echo - Speech cleared patient for puree diet, MBS to follow - Orthostatics ordered - Increase hydration Elevated Troponins - Troponins 0.11, 0.11, 0.10 - EKG did show any acute changes - repeat EKG Dizziness - Meclizine 25mg tid prn Hyperkalemia - On admission 5.3, resolved to 3.7 on 11/25 - Kayexylate given - Daily BMPs Leukocytosis - on admission WBC 12, improved to 9.5 - patient remained afebrile - trend WBC, temperatures Hypertension - Toprol XL 25 daily - Lisinopril 20mg daily - Neurology recommendation to keep BP 160/90 during admission Diabetes Mellitus Type 2 - ISS - BGM q4h - Consider A1C CAD - Cardiology consulted, input appreciated - Aspirin 81mg - Plavix 75mg - f/u [facility] results from 11/2016 Hyperlipidemia - home statin switched to Crestor 20mg - lipid panel: TG 425, total cholesterol 214, LDL 126, HDL 45 - started on niacin, fish oil F/E/N -NS 75cc/hr -Daily BMP -dysphagia puree DVT Ppx -heparin subq tid Disposition -admitted to telemetry
[2017-11-25] MEDS ORDERED: PT OWN MED DRAWER 7, Y5N ONE (21:21)
[2017-11-25] MEDS: ROSUVASTATIN CA 20 MG TABLET (FP) PO SCH (21:34)
[2017-11-25] MEDS: NIACIN 500 MG TABLET PO SCH (21:34)
[2017-11-25] MEDS ORDERED: NEOMYCIN/POLYMYXIN/BACITRACIN (TRIPLE ANTIBIOTIC) 28 GM OINTMENT TP PRN (21:57)
[2017-11-25] MEDS ORDERED: OMEGA-3 ACID ETHYL ESTERS (FATTY-ACIDS) 1 GM CAPSULE (FP) PO SCH ×2 (22:00)
--- NOTE | 2017-11-26 05:30 | PN ---
Physical Exam: SUBJECTIVE: Patient seen and examined - no major overnight events, VSS; Orthostatics negative yesterday; OOB with assist x1, no further complaints of dizziness per nursing - Pt states dizziness much improved with ambulation. No further N/V; Endorses normal strength and stability in his R leg, improving in L leg; States gait feels more stable; Denies f/c/n/v/d, cp, sob, cough, ab pain, back pain, LE edema, CHRISTIAN, vision changes OBJECTIVE: Vital Signs Intake & Output 11/23/17 11/24/17 11/25/17 11/26/17 23:59 23:59 23:59 23:59 Intake Total 50 430 Balance 50 430 Weight 86.183 kg 96.842 kg Period Temp Pulse Resp BP Sys/Dumont Pulse Ox Last 24 Hr 98 F-98.2 F 84-100 16-20 148-175/68-111 GENERAL: Middle aged man, NAD, A&Ox3 HEAD: Normal with no signs of trauma. EYES: Glasses. Pupils equal, round and reactive to light, extraocular movements intact, sclera anicteric, conjunctiva clear. No lid lag. EARS, NOSE, THROAT: Ears normal, nares patent, oropharynx clear without exudates. Moist mucous membranes. NECK: Normal range of motion, supple without lymphadenopathy, JVD, or masses. No bruit appreciated. LUNGS: Breath sounds equal, clear to auscultation bilaterally. No wheezes, and no crackles. No accessory muscle use. HEART: Regular rate and rhythm, normal S1 and S2 without murmur, rub or gallop. ABDOMEN: Soft, nontender, not distended, normoactive bowel sounds, no guarding, no rebound, no masses. No hepatomegaly or splenomegaly. MUSCULOSKELETAL: Normal range of motion at all joints. No bony deformities or tenderness. No CVA tenderness. UPPER EXTREMITIES: 2+ pulses, warm, well-perfused. No cyanosis. No clubbing. No peripheral edema. LOWER EXTREMITIES: Improving petechial rash on R anterior ankle. 2+ pulses, warm , well-perfused. No calf tenderness. No peripheral edema. NEUROLOGICAL: +R tongue deviation. L arm dysmmetria. 5/5 strength BL in all muscle groups. still with decreased sensation to light touch in stocking distribution to ankles BL. All other cranial nerves, muscle groups with preserved strength. Normal speech. PSYCHIATRIC: Cooperative. Good eye contact. Appropriate mood and affect. SKIN: Warm, dry, normal turgor, no rashes or lesions noted, normal capillary refill. Laboratory Results - last 24 hr CBC, BMP 11/26/17 07:24 11/25/17 07:25 11/25/17 07:25 11/25/17 11/25/17 11/25/17 06:03 07:25 07:25 WBC 9.5 RBC 4.31 Hgb 13.0 D Hct 37.9 MCV 87.9 MCH 30.2 MCHC 34.3 RDW 14.4 Plt Count 210 MPV 8.6 Neutrophils % 64.7 Lymphocytes % 24.3 Monocytes % 6.6 Eosinophils % 3.6 Basophils % 0.8 PT with INR 11.10 INR 0.98 PTT (Actin FS) 20.2 L Sodium Potassium Chloride Carbon Dioxide Anion Gap BUN Creatinine Creat Clearance w eGFR POC Glucometer 167 Random Glucose Calcium Phosphorus Magnesium Total Bilirubin AST ALT Alkaline Phosphatase Total Protein Albumin Triglycerides Cholesterol Total LDL Cholesterol HDL Cholesterol 11/25/17 11/25/17 11/25/17 07:25 07:25 11:05 WBC RBC Hgb Hct MCV MCH MCHC RDW Plt Count MPV Neutrophils % Lymphocytes % Monocytes % Eosinophils % Basophils % PT with INR INR PTT (Actin FS) Sodium 139 Potassium 3.7 D Chloride 102 Carbon Dioxide 25 Anion Gap 12 BUN 12 Creatinine 0.9 D Creat Clearance w eGFR > 60 POC Glucometer 176 Random Glucose 162 H D Calcium 8.3 L Phosphorus 3.2 Magnesium 2.0 Total Bilirubin 0.6 AST 19 D ALT 23 D Alkaline Phosphatase 54 Total Protein 7.0 D Albumin 3.3 L Triglycerides 425 H D Cancelled Cholesterol 214 H D Cancelled Total LDL Cholesterol 126 H D Cancelled HDL Cholesterol 45 D Cancelled 11/25/17 11/25/17 16:10 20:34 WBC RBC Hgb Hct MCV MCH MCHC RDW Plt Count MPV Neutrophils % Lymphocytes % Monocytes % Eosinophils % Basophils % PT with INR INR PTT (Actin FS) Sodium Potassium Chloride Carbon Dioxide Anion Gap BUN Creatinine Creat Clearance w eGFR POC Glucometer 197 175 Random Glucose Calcium Phosphorus Magnesium Total Bilirubin AST ALT Alkaline Phosphatase Total Protein Albumin Triglycerides Cholesterol Total LDL Cholesterol HDL Cholesterol Active Medications Generic Name Dose Route Start Last Admin Trade Name Freq PRN Reason Stop Dose Admin Aspirin 81 mg 11/26/17 10:00 Ecotrin - PO DAILY ANGELITA Clopidogrel Bisulfate 75 mg 11/25/17 11:52 11/25/17 13:00 Plavix - PO 75 mg DAILY ANGELITA Administration Heparin Sodium (Porcine) 5,000 unit 11/24/17 22:00 11/25/17 21:34 Heparin - SQ 5,000 unit TID ANGELITA Administration Sodium Chloride 1,000 mls @ 75 mls/hr 11/24/17 21:45 11/25/17 21:34 Normal Saline - IV 75 mls/hr ASDIR ANGELITA Administration Insulin Aspart 1 vial 11/24/17 16:30 11/25/17 21:34 Novolog Vial Sliding Scale - SQ 2 units ACHS ANGELITA Administration Protocol Lisinopril 20 mg 11/26/17 10:00 Prinivil PO DAILY ANGELITA Meclizine HCl 25 mg 11/25/17 09:12 Antivert - PO TID PRN VERTIGO Metoclopramide HCl 10 mg 11/24/17 15:34 Reglan Injection - IVPUSH Q6H PRN NAUSEA AND/OR VOMITING Metoprolol Succinate 25 mg 11/25/17 10:00 11/25/17 09:25 Toprol Xl - PO 25 mg DAILY ANGELITA Administration Neomycin/Polymyxin/Bacitracin 1 applic 11/25/17 21:57 Neosporin Topical Ointment - TP DAILY PRN rash Niacin 500 mg 11/25/17 22:00 11/25/17 21:34 Niacin PO 500 mg BID ANGELITA Administration Rosuvastatin Calcium 20 mg 11/25/17 22:00 11/25/17 21:34 Crestor - PO 20 mg HS ANGELITA Administration No micro pending EKG 11/24 - rate 80, qtc 463, NAD, equivocal ST elevations in v2, prominent Twaves in v2 Head CT 11/24 - Impression: 1. Well demarcated infarction in the right gangliocapsular region as described above is new since MRI. This infarct is age indeterminate on CT. Please correlate clinically. If warranted, MRI may be obtained for further evaluation. 2. No acute intracranial hemorrhage , mass effects or hydrocephalus. 3. Chronic lacunar infarcts in bilateral thalami and left frontal subcortical white matter, unchanged from 11/06/2016. CXR 11/24 - Impression: Weak inspiration with resultant large heart and prominent central markings. Carotid doppler 11/24 - Intimal thickening at bifurcation, R>L. ECHO 11/25 - EF 40-45%, RV normal size, LA/RA normal, trace MR, trace TR, Abnormal diastolic relaxation MRI/MRA brain w/o contrast 11/25 - IMPRESSION: A 1.1 x 0.7 cm acute nonhemorrhagic infarct is seen within the left cerebellar hemisphere medially. In comparison to a previous MRI exam of 11/06/2016 there has been interval development of a chronic right basal ganglia infarct. Small chronic bilateral thalamic infarcts. Small chronic bilateral frontoparietal subcortical infarcts. - no stenosis noted on MRA ASSESSMENT/PLAN: 52 yo M w/ pmh of HTN, CAD, CVA x3, DM who presents with acute onset N/V, vertigo and gait ataxia/weakness beginning this AM. Now with MRI confirmed cerebellar stroke. Pt improving clinically today, only complaining of residual gait instability. D/c to rehab tomorrow #Suspected CVA vs. vertebrobasilar insufficiency - no tpa given, as outside window; NIHSS 2; carotid doppler studies as noted above; ECHO as noted above; MRI as above - cardiac monitoring - ASA, plavix daily - Crestor 20mg daily - Neuro consult, recs appreciated - Dr. Layne - PT eval noted; will require walker for short-term - Regular diet - MBS normal - d/c to rehab tomorrow with outpt follow-up #Elevated Trops - 0.11 x2 on admission, resolved #Hyperkalemia - Resolved, 3.7 today - Daily BMPs - Trend #Leukocytosis - resolved, likely reactive; not infectious - trend WBC, fever curve - if febrile, send cultures, start abx #HTN - BP <150/90 per neuro recs - Toprol XL 25 increased to 50mg daily - lisinopril 20mg dQ #DM2 - - ISS - BGM q4h #CAD - pt reports 3-vessel dz - Cards consulted, recs appreciated - Dr. Howell - ASA/plavix #HLD - Triglycerides in 425, cholesterol 214, LDL 126 - Crestor 20mg qD -c/w niacin, fish oil FEN PO hydration Daily lytes Regular diet PPX HSQ Plan discussed with attending, Dr. Cristina Trejo, PGY1 Visit type - Emergency Visit Emergency Visit: Yes ED Registration Date: 11/24/17 Care time: The patient presented to the Emergency Department on the above date and was hospitalized for further evaluation of their emergent condition. - New Patient This patient is new to me today: No - Critical Care Critical Care patient: No
[2017-11-26] MEDS: HEPARIN NA (PORCINE) 5,000 UNITS/ML 1ML VIAL SQ SCH ×3 (05:41→22:39)
[2017-11-26] MEDS: INSULIN SLIDING SCALE (NOVOLOG) 1 VIAL SQ SCH ×4 (06:07→22:39)
[2017-11-26] MEDS ORDERED: PT OWN MED DRAWER 7, Y5N ONE ×2 (07:25→09:22)
--- NOTE | 2017-11-26 07:34 | PN ---
Teaching Attending Note Name of Resident: Alvarez Trejo ATTENDING PHYSICIAN STATEMENT I saw and evaluated the patient. I reviewed the resident's note and discussed the case with the resident. I agree with the resident's findings and plan as documented with exceptions mentioned below. SUBJECTIVE: Patient seen and examined. feels better, improved leg weakness and balance. OBJECTIVE: Vital Signs Period Temp Pulse Resp BP Sys/Dumont Pulse Ox Last 24 Hr 98 F-98.2 F 82-100 16-20 139-175/68-111 Intake & Output 11/23/17 11/24/17 11/25/17 11/26/17 23:59 23:59 23:59 23:59 Intake Total 50 430 Output Total 100 Balance 50 430 -100 Weight 190 lb 213 lb 8 oz General sitting in bed in no acute distress Neuro AAOx3, facial symmetry, tongue midline and symmetric on movements, power 5 /5, LUE finger nose test with past pointing Chest CTAB, no rales or wheezing extremities no edema Abdomen soft, NT, ND Home Medication List Medication Instructions Recorded Confirmed Type Metformin HCl [Glucophage] 500 mg PO DAILY 08/19/15 11/25/17 History Lisinopril [Prinivil] 20 mg PO DAILY 11/04/16 11/25/17 History Nitroglycerin [Nitrostat] 0.4 mg SL PRN 11/24/17 11/24/17 History Pravastatin Sodium [Pravachol (Nf)] 40 mg PO HS 11/24/17 11/25/17 History Aspirin [ASA -] 325 mg PO DAILY 11/25/17 11/25/17 History Active Medications Generic Name Dose Route Start Last Admin Trade Name Faustoq PRN Reason Stop Dose Admin Aspirin 81 mg 11/26/17 10:00 Ecotrin - PO DAILY ANGELITA Clopidogrel Bisulfate 75 mg 11/25/17 11:52 11/25/17 13:00 Plavix - PO 75 mg DAILY ANGELITA Administration Heparin Sodium (Porcine) 5,000 unit 11/24/17 22:00 11/26/17 05:41 Heparin - SQ 5,000 unit TID ANGELITA Administration Sodium Chloride 1,000 mls @ 75 mls/hr 11/24/17 21:45 11/25/17 21:34 Normal Saline - IV 75 mls/hr ASDIR ANGELITA Administration Insulin Aspart 1 vial 11/24/17 16:30 11/26/17 06:07 Novolog Vial Sliding Scale - SQ Not Given [facility] Protocol Lisinopril 20 mg 11/26/17 10:00 Prinivil PO DAILY ANGELITA Meclizine HCl 25 mg 11/25/17 09:12 Antivert - PO TID PRN VERTIGO Metoclopramide HCl 10 mg 11/24/17 15:34 Reglan Injection - IVPUSH Q6H PRN NAUSEA AND/OR VOMITING Metoprolol Succinate 25 mg 11/25/17 10:00 11/25/17 09:25 Toprol Xl - PO 25 mg DAILY ANGELITA Administration Neomycin/Polymyxin/Bacitracin 1 applic 11/25/17 21:57 Neosporin Topical Ointment - TP DAILY PRN rash Niacin 500 mg 11/25/17 22:00 11/25/17 21:34 Niacin PO 500 mg BID ANGELITA Administration Rosuvastatin Calcium 20 mg 11/25/17 22:00 11/25/17 21:34 Crestor - PO 20 mg HS ANGELITA Administration MRI brain/MRA head/neck results reviewed Carotid dopplers noted 2D echo pending Telemetry with bigimency and PVCs ASSESSMENT AND PLAN: 52yo M with PMH CVA x3 (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 MRA noted. Follow up 2D echo. Continue ASA/plavix/statin. Better BP control as out of permissive HTN window. D/c IVF for now and monitor PO intake. Speech/swallow input noted. MBS with no concerns. Continue lisinopril/toprol XL. Increase toprol XL ISS, diabetic diet. hold metformin. DVTPPx with heparin PT eval noted,plan for [facility]AY[facility]. Dispo in 24 hours if BP and symptoms improved, pending 2D echo and SNF bed arrangement Plan discussed with patient in detail, all questions answered.
[2017-11-26 08:25] LABS: BASO % 1.3 % (0-2.0); EOS % 7.9 % (0-4.5); HEMATOCRIT 38.5 % (35.4-49); HEMOGLOBIN 13.3 GM/dL (11.7-16.9); LYMPH % 25.1 % (8-40); MCH 30.4 pg (25.7-33.7); MCHC 34.6 g/dl (32.0-35.9); MEAN CELL VOLUME 87.9 fl (80-96); MEAN PLT VOLUME 8.3 fl (7.5-11.1); MONO % 6.4 % (3.8-10.2); NEUT % 59.3 % (42.8-82.8); PLATELET COUNT 203 K/MM3 (134-434); RBC 4.38 M/mm3 (4.00-5.60); RDW 14.1 % (11.9-15.9); WHITE BLOOD COUNT 6.9 K/mm3 (4.0-10.0)
[2017-11-26 08:43] LABS: CHLORIDE 102 mmol/L (98-107); POTASSIUM 3.9 mmol/L (3.5-5.1); SODIUM 139 mmol/L (136-145)
[2017-11-26 08:52] LABS: ALBUMIN 3.3 g/dl (3.4-5.0); ALK PHOS 56 U/L (45-117); ANION GAP 10 (8-16); BILIRUBIN,TOTAL 0.6 mg/dL (0.2-1.0); BLOOD UREA NITROGEN 11 mg/dL (7-18); CALCIUM 8.7 mg/dL (8.5-10.1); CO2 27 mmol/L (21-32); GLUCOSE,RANDOM 158 mg/dL (74-106); SGOT/AST 21 U/L (15-37); SGPT/ALT 23 U/L (12-78); TOT PROT 6.9 g/dl (6.4-8.2)
[2017-11-26] MEDS: LISINOPRIL 20 MG TABLET (FP) PO SCH (09:29)
[2017-11-26] MEDS: ASPIRIN COATED 81 MG TABLET.EC PO SCH (09:29)
[2017-11-26] MEDS: NIACIN 500 MG TABLET PO SCH ×2 (09:30→22:39)
[2017-11-26] MEDS: CLOPIDOGREL BISULFATE 75 MG TABLET (FP) PO SCH (09:30)
--- NOTE | 2017-11-26 09:38 | PN ---
Progress Note (short form) - Note Progress Note: Neurology CHIEF COMPLAINT: N/V, unsteady gait, dizzyness HISTORY OF PRESENT ILLNESS: 52 yo M w/ pmh of HTN, CAD, CVA x3, DM who presented with acute onset N/V, vertigo and gait ataxia/weakness beginning morning of admission. Pt with 3 prior CVAs (8, 3 and 1 year ago per pt; no residual deficits), currently on ASA 325mg with reported compliance. He lives at home independent in all ADLs. Reportedly, brothers visited last night and he ingested two 6-packs of beer. He denied any symptoms at the time. He stated he awoke at 4AM and felt thirsty, drank a glass of water and immediately became nauseous. He stated he tried to walk to bathroom, however his legs felt too weak and unsteady fell back into bed. Pt also endorsed vertigo and lightheadness at the time, worsened by movement. Reportedly, every time he attempted to stand, he experienced transient vision loss. CT head completed in ER and demonstrated R basal ganglia infarct that is new compared to imaging from October 2016. No acute changes noted but chronic lacunar infarcts noted in b/l thalami and L frontal subcortical white matter. Not a TPA candidate as he was outside window. Carotid dopplers completed and also reviewed and did not demonstrate HD significant stenosis. He received a dose of Meclezine in the ER. Completed MRI brain which I reviewed and showed acute L medial cerebellar hemisphere acute infarct. Discussed this with patient and with primary team. Size and location suspicious for hypertensive etiology. Of note, MRA completed and did not show vascular malformations or aneurysms. Antiplatelet regiment has been adjusted to dual therapy with ASA 81 and plavix 75, patient aware and in agreement. Plan is for SNF for rehab of ongoing gait instability from CVA, patient in agreement. Primary team aware and in agreement. Active Medications Aspirin (Ecotrin -) 81 mg PO DAILY [facility] Last Admin: 11/26/17 09:29 Dose: 81 mg Clopidogrel Bisulfate (Plavix -) 75 mg PO DAILY [facility] Last Admin: 11/26/17 09:30 Dose: 75 mg Heparin Sodium (Porcine) (Heparin -) 5,000 unit SQ TID [facility] Last Admin: 11/26/17 05:41 Dose: 5,000 unit Insulin Aspart (Novolog Vial Sliding Scale -) 1 vial SQ ACHS [facility] PRN Reason: Protocol Last Admin: 11/26/17 06:07 Dose: Not Given Lisinopril (Prinivil) 20 mg PO DAILY [facility] Last Admin: 11/26/17 09:29 Dose: 20 mg Meclizine HCl (Antivert -) 25 mg PO TID PRN PRN Reason: VERTIGO Metoclopramide HCl (Reglan Injection -) 10 mg IVPUSH Q6H PRN PRN Reason: NAUSEA AND/OR VOMITING Metoprolol Succinate (Toprol Xl -) 50 mg PO DAILY [facility] Last Admin: 11/26/17 09:29 Dose: 50 mg Neomycin/Polymyxin/Bacitracin (Neosporin Topical Ointment -) 1 applic TP DAILY PRN PRN Reason: rash Last Admin: 11/26/17 09:34 Dose: 1 applic Niacin (Niacin) 500 mg PO BID [facility] Last Admin: 11/26/17 09:30 Dose: 500 mg Rosuvastatin Calcium (Crestor -) 20 mg PO HS [facility] Last Admin: 11/25/17 21:34 Dose: 20 mg PHYSICAL EXAMINATION Vital Signs Temperature 98 F 11/26/17 09:08 Pulse Rate 93 H 11/26/17 09:08 Respiratory Rate 20 11/26/17 09:08 Blood Pressure 176/105 11/26/17 09:08 O2 Sat by Pulse Oximetry (%) 97 11/24/17 23:34 GENERAL: Middle aged man, NAD, A&Ox3 HEAD: Normal with no signs of trauma. EYES: Wear glasses. Pupils equal, round and reactive to light, extraocular movements intact, sclera anicteric, conjunctiva clear. No lid lag. EARS, NOSE, THROAT: Ears normal, nares patent, oropharynx clear without exudates. Moist mucous membranes. NECK: Normal range of motion, supple without lymphadenopathy, JVD, or masses. No bruit appreciated. LUNGS: Breath sounds equal, clear to auscultation bilaterally. No wheezes, and no crackles. No accessory muscle use. HEART: Regular rate and rhythm, normal S1 and S2 without murmur, rub or gallop. ABDOMEN: Soft, nontender, not distended, normoactive bowel sounds, no guarding, no rebound, no masses. No hepatomegaly or splenomegaly. MUSCULOSKELETAL: Normal range of motion at all joints. No bony deformities or tenderness. No CVA tenderness. UPPER EXTREMITIES: 2+ pulses, warm, well-perfused. No cyanosis. No clubbing. No peripheral edema. LOWER EXTREMITIES: Petechial rash on R anterior ankle. 2+ pulses, warm, well- perfused. No calf tenderness. No peripheral edema. NEUROLOGICAL: No slurred speech, no facial droop, L side intact, R side 5-/5, slight decreased sensation to light touch in stocking distribution to ankles BL. dysmetria on finger to nose noted PSYCHIATRIC: Cooperative. Good eye contact. Appropriate mood and affect. SKIN: Warm, dry, normal turgor, no rashes or lesions noted, normal capillary refill. CBCD WBC 6.9 K/mm3 (4.0-10.0) 11/26/17 07:24 RBC 4.38 M/mm3 (4.00-5.60) 11/26/17 07:24 Hgb 13.3 GM/dL (11.7-16.9) 11/26/17 07:24 Hct 38.5 % (35.4-49) 11/26/17 07:24 MCV 87.9 fl (80-96) 11/26/17 07:24 MCHC 34.6 g/dl (32.0-35.9) 11/26/17 07:24 RDW 14.1 % (11.9-15.9) 11/26/17 07:24 Plt Count 203 K/MM3 (134-434) 11/26/17 07:24 MPV 8.3 fl (7.5-11.1) 11/26/17 07:24 CMP Sodium 139 mmol/L (136-145) 11/26/17 07:24 Potassium 3.9 mmol/L (3.5-5.1) 11/26/17 07:24 Chloride 102 mmol/L (98-107) 11/26/17 07:24 Carbon Dioxide 27 mmol/L (21-32) 11/26/17 07:24 Anion Gap 10 (8-16) 11/26/17 07:24 BUN 11 mg/dL (7-18) 11/26/17 07:24 Creatinine 1.0 mg/dL (0.7-1.3) 11/26/17 07:24 Creat Clearance w eGFR > 60 (>60) 04/10/18 07:24 Calcium 8.7 mg/dL (8.5-10.1) 11/26/17 07:24 Total Bilirubin 0.6 mg/dL (0.2-1.0) 11/26/17 07:24 AST 21 U/L (15-37) 11/26/17 07:24 ALT 23 U/L (12-78) 11/26/17 07:24 Alkaline Phosphatase 56 U/L (45-117) 11/26/17 07:24 Total Protein 6.9 g/dl (6.4-8.2) 11/26/17 07:24 Albumin 3.3 g/dl (3.4-5.0) L 11/26/17 07:[address] 11/24 - Impression: 1. Well demarcated infarction in the right gangliocapsular region as described above is new since MRI. This infarct is age indeterminate on CT. Please correlate clinically. If warranted, MRI may be obtained for further evaluation. 2. No acute intracranial hemorrhage , mass effects or hydrocephalus. 3. Chronic lacunar infarcts in bilateral thalami and left frontal subcortical white matter, unchanged from 11/06/2016. CXR 11/24 - Impression: Weak inspiration with resultant large heart and prominent central markings. 11/24 Carotid Doppler- No hemodynamically significant stenosis MRI/MRA 11/25/17: 1.1 X 0.7 cm L medial cerebellar CVA, acute. No AVM, aneurysm noted. ASSESSMENT/PLAN: 52 yo M w/ pmh of HTN, CAD, CVA x3, DM who presented with acute onset N/V, vertigo and gait ataxia/weakness beginning morning of admission. Pt with 3 prior CVAs (8, 3 and 1 year ago per pt; no residual deficits), currently on ASA 325mg with reported compliance. CT head completed in ER and demonstrated R basal ganglia infarct that is new compared to imaging from October 2016. No acute changes noted but chronic lacunar infarcts noted in b/l thalami and L frontal subcortical white matter. MRI brain reviewed and acute CVA in L cerebellum noted Carotid dopplers completed and also reviewed and did not demonstrate HD significant stenosis. Ordered Meclezine 25mg PRN Physcial therapy to be continued Monitor blood pressure, goal < 150/90 for now, goal < 130/80 as outpatient ASA decreased to 81mg and added Plavix 75mg for increased CVA prevention (combo of ASA 325 and Plavix 75 too much of bleed risk) Monitor for Afib, in which case AC would recommended and would not put patient on dual Antiplatlet, Cardiology follow up Continue Pravastatin, goal LDL < 70 Fall precautions Medication compliance encouraged Rehab placement when able
--- NOTE | 2017-11-26 13:54 | MSN ---
Progress Note (SOAP) - Subjective Chief Complaint: dizziness, unsteady gait, nausea and vomiting History of Present Illness: Overnight, blood pressure was noted to be elevated at 169/95, 176/105, pulse remained within normal limits. On monitor, some episodes of PVCs and ventricular bigeminy noted. MRI was performed and showed 1.1x0.7cm L cerebellar infarct. Patient was seen and examined at the bedside. Patient endorsed dizziness and lightheadedness when sitting up, standing up, and walking. Patient also noted some weakness and discoordination in his left leg and stated that his right leg improved significantly. Patient denied any changes in vision from his baselines. Patient did not note any new weakness, numbness, or tingling. Patient denied cp, sob, headaches, n/v/c/d, urinary frequency/urgency, abd pain , fever, or chills. - Current Medications Current Medications: Active Medications Aspirin (Ecotrin -) 81 mg PO DAILY [facility] Last Admin: 11/26/17 09:29 Dose: 81 mg Clopidogrel Bisulfate (Plavix -) 75 mg PO DAILY [facility] Last Admin: 11/26/17 09:30 Dose: 75 mg Heparin Sodium (Porcine) (Heparin -) 5,000 unit SQ TID [facility] Last Admin: 11/26/17 05:41 Dose: 5,000 unit Insulin Aspart (Novolog Vial Sliding Scale -) 1 vial SQ ACHS [facility] PRN Reason: Protocol Last Admin: 11/26/17 13:29 Dose: Not Given Lisinopril (Prinivil) 20 mg PO DAILY [facility] Last Admin: 11/26/17 09:29 Dose: 20 mg Meclizine HCl (Antivert -) 25 mg PO TID PRN PRN Reason: VERTIGO Metoclopramide HCl (Reglan Injection -) 10 mg IVPUSH Q6H PRN PRN Reason: NAUSEA AND/OR VOMITING Metoprolol Succinate (Toprol Xl -) 50 mg PO DAILY [facility] Last Admin: 11/26/17 09:29 Dose: 50 mg Neomycin/Polymyxin/Bacitracin (Neosporin Topical Ointment -) 1 applic TP DAILY PRN PRN Reason: rash Last Admin: 11/26/17 09:34 Dose: 1 applic Niacin (Niacin) 500 mg PO BID [facility] Last Admin: 11/26/17 09:30 Dose: 500 mg Rosuvastatin Calcium (Crestor -) 20 mg PO HS [facility] Last Admin: 11/25/17 21:34 Dose: 20 mg - Objective Vital Signs: Vital Signs Temperature 98 F 11/26/17 09:08 Pulse Rate 93 H 11/26/17 09:08 Respiratory Rate 20 11/26/17 09:08 Blood Pressure 176/105 11/26/17 09:08 O2 Sat by Pulse Oximetry (%) 97 11/24/17 23:34 Constitutional: Yes: Well Nourished, No Distress, Calm Eyes: Yes: WNL, Conjunctiva Clear, EOM Intact, PERRL HENT: Yes: WNL, Atraumatic, Normocephalic Neck: Yes: WNL, Supple, Trachea Midline Cardiovascular: Yes: WNL, Regular Rate and Rhythm, S1, S2 Respiratory: Yes: WNL, Regular, CTA Bilaterally Gastrointestinal: Yes: WNL, Normal Bowel Sounds, Soft Musculoskeletal: Yes: WNL, Muscle Weakness (mild muscle weakness on left side on foot) Extremities: Yes: WNL Peripheral Pulses WNL: Yes Peripheral Pulses: Left Radial: 2+, Right Radial: 2+, Left Doralis Pedis: 2+, Right Dorsalis Pedis: 2+ Edema: No Integumentary: Yes: WNL Neurological: Yes: Alert, Oriented (oriented x3), Cran Nerves II-XII Intact, Loss of Sensation (stocking distribution on feet 2/2 diabetic neuropaty), Unsteady Gait (+Romberg), Other (noted R tongue deviation, intrinsic tongue muscles intact. marked dysmetria on left side on finger to nose, R side normal. Heel to gutierres testing normal bilaterally. No dysdiadokinesia noted) ...Motor Strength: Yes: WNL (5/5 throughout bilaterally upper and lower extremities) Psychiatric: Yes: WNL, Alert, Oriented Labs Lab Results: CBC, BMP 11/26/17 07:24 11/26/17 07:24 Problem List - Problems (1) Cerebrovascular accident (CVA) Code(s): I63.9 - CEREBRAL INFARCTION, UNSPECIFIED (2) Vertigo Code(s): R42 - DIZZINESS AND GIDDINESS (3) Diabetes mellitus Code(s): E11.9 - TYPE 2 DIABETES MELLITUS WITHOUT COMPLICATIONS (4) Hypertension Code(s): I10 - ESSENTIAL (PRIMARY) HYPERTENSION Qualifiers: Hypertension type: essential hypertension Qualified Code(s): I10 - Essential (primary) hypertension Assessment/Plan Suspected stroke vs. vertebrobasilar insufficiency - telemetry monitoring - Neuro checks - ASA 81mg - Crestor 25mg - Plavix 75mg - Neurology consulted, input appreciated - CT head showed new since 11/06/16 right gangliocapsular infarction that is age indeterminate, chronic lacunar infarcts in bilateral thalami and left front subcortical white matter - MRI showed 0.7x1.1cm left cerebellar infarct, MRA showed no significant stenosis. - PT eval, was able to walk 25ft - Carotid doppler showed small plaques as common carotid bifurcation R>L, no significant stenosis - MBS showed no limitations, patient cleared for regular diet - Orthostatics ordered - Increase hydration - patient agreeable to subacute rehab Elevated Troponins - Troponins 0.11, 0.11, 0.10 - EKG did show any acute changes Dizziness - Meclizine 25mg tid prn Hyperkalemia - On admission 5.3, resolved to 3.7 on 11/25 - Kayexylate given - Daily BMPs Leukocytosis - on admission WBC 12, improved to 9.5 - patient remained afebrile - trend WBC, temperatures Hypertension - Toprol XL 50mg daily - Lisinopril 20mg daily - Neurology recommendation to keep BP 150/90 during admission Diabetes Mellitus Type 2 - ISS - BGM q4h - Consider A1C CAD - Cardiology consulted, input appreciated - Aspirin 81mg - Plavix 75mg - EF 40-45% Hyperlipidemia - home statin switched to Crestor 20mg - lipid panel: TG 425, total cholesterol 214, LDL 126, HDL 45 - started on niacin F/E/N -Daily BMP -cleared for regular diet DVT Ppx -heparin subq tid Disposition -admitted to telemetry
--- NOTE | 2017-11-26 17:53 | PN ---
Progress Note, Physician Chief Complaint: Pt A&Ox3; mother, sister, and are at bedside. He denies chest pain, dyspnea , or palpitations. History of Present Illness: 52 yo man with h/o CAD (recent coronary angiogram showed severe multivessel disease; he has been undecided on whether to undergo multiple stents or CABG), HTN, DM, CAD,CVA x 3 ( no residual deficits), Prostate Cancer, obesity, alcoholism, who p/w nausea and vomiting. Pt. reports multiple episodes of bilious, non bloody emesis beginning at 0400 AM. + Diaphoresis and numbness/ tingling in LE. Onset of emesis following episode of unremitting spinning sensation, worse with movement. Reports drinking 2 6 pack of beers. Reports chronically poor vision. . Denies F/C, CP, SOB, abdominal pain, diarrhea, constipation, urinary complaints, weakness, lightheadedness, sensory changes. No recent travels or change in diet. Pt has for years been drinking heavily several times a week; he last drank on , having 2 six-packs of beer. - Current Medication List Current Medications: Active Medications Aspirin (Ecotrin -) 81 mg PO DAILY [facility] Last Admin: 11/26/17 09:29 Dose: 81 mg Clopidogrel Bisulfate (Plavix -) 75 mg PO DAILY [facility] Last Admin: 11/26/17 09:30 Dose: 75 mg Heparin Sodium (Porcine) (Heparin -) 5,000 unit SQ TID [facility] Last Admin: 11/26/17 17:42 Dose: Not Given Insulin Aspart (Novolog Vial Sliding Scale -) 1 vial SQ ACHS [facility] PRN Reason: Protocol Last Admin: 11/26/17 17:42 Dose: 2 units Lisinopril (Prinivil) 20 mg PO DAILY [facility] Last Admin: 11/26/17 09:29 Dose: 20 mg Meclizine HCl (Antivert -) 25 mg PO TID PRN PRN Reason: VERTIGO Metoclopramide HCl (Reglan Injection -) 10 mg IVPUSH Q6H PRN PRN Reason: NAUSEA AND/OR VOMITING Metoprolol Succinate (Toprol Xl -) 50 mg PO DAILY [facility] Last Admin: 11/26/17 09:29 Dose: 50 mg Neomycin/Polymyxin/Bacitracin (Neosporin Topical Ointment -) 1 applic TP DAILY PRN PRN Reason: rash Last Admin: 11/26/17 09:34 Dose: 1 applic Niacin (Niacin) 500 mg PO BID [facility] Last Admin: 11/26/17 09:30 Dose: 500 mg Rosuvastatin Calcium (Crestor -) 20 mg PO HS [facility] Last Admin: 11/25/17 21:34 Dose: 20 mg - Objective Vital Signs: Vital Signs Temperature 98 F 11/26/17 14:43 Pulse Rate 82 11/26/17 14:43 Respiratory Rate 20 11/26/17 14:43 Blood Pressure 142/82 11/26/17 14:43 O2 Sat by Pulse Oximetry (%) 97 11/24/17 23:34 Labs: CBC, BMP 11/26/17 07:24 11/26/17 07:24 INR, PTT INR 0.98 (0.82-1.09) 11/25/17 07:25 Problem List - Problems (1) Acute on chronic systolic and diastolic heart failure, NYHA class 1 Code(s): I50.43 - ACUTE ON CHRONIC COMBINED SYSTOLIC AND DIASTOLIC HRT FAIL (2) Diabetes Code(s): E11.9 - TYPE 2 DIABETES MELLITUS WITHOUT COMPLICATIONS (3) Cerebrovascular accident (CVA) Code(s): I63.9 - CEREBRAL INFARCTION, UNSPECIFIED (4) Hyperlipidemia Code(s): E78.5 - HYPERLIPIDEMIA, UNSPECIFIED Qualifiers: Hyperlipidemia type: unspecified Qualified Code(s): E78.5 - Hyperlipidemia , unspecified (5) Hypertension Code(s): I10 - ESSENTIAL (PRIMARY) HYPERTENSION Qualifiers: Hypertension type: essential hypertension Qualified Code(s): I10 - Essential (primary) hypertension (6) Obesity Code(s): E66.9 - OBESITY, UNSPECIFIED (7) Coronary artery disease Assessment/Plan: known to have severe multivessel CAD by angiogram within the past few months. I discussed findings of CVA today with pt's interventionalist, Dr. Du, who believes stenting rather than CABG may be the preferred method of treating his CAD, several weeks after CVA has been treated. Continue ASA and clopidogrel. High-dose statin. Diet change, weight loss, and alcohol cessation were discussed in detail with pt and family. (Niacin, while potentially lowering triglycerides, has not been shown to be effective at lowering cardiac events or mortality; fibrate may be marginally better, though with increased side-effects when added to statin. Diet changes and exercise need to be emphasized; fish oil capsules might have value in this setting; Zetia would lower LDL, with less effect on triglycerides). Code(s): I25.10 - ATHSCL HEART DISEASE OF [place] CORONARY ARTERY W/O ANG PCTRS
[2017-11-26] MEDS: ROSUVASTATIN CA 20 MG TABLET (FP) PO SCH (22:39)
--- NOTE | 2017-11-27 05:47 | PN ---
Physical Exam: SUBJECTIVE: Patient seen and examined by me this AM - Still complaining of dizziness in the AM; no further episodes of N/V; Still endorsing L leg weakness; Denies f/c/n/v/d, CP, cough, ab pain, back pain OBJECTIVE: Vital Signs Intake & Output 11/24/17 11/25/17 11/26/17 11/27/17 23:59 23:59 23:59 23:59 Intake Total 50 430 10 Output Total 100 Balance 50 430 -90 Weight 86.183 kg 96.842 kg Period Temp Pulse Resp BP Sys/Dumont Pulse Ox Last 24 Hr 98 F-99.5 F 82-93 18-20 136-176/79-105 GENERAL: Middle aged man, NAD, A&Ox3 HEAD: Normal with no signs of trauma. EYES: Glasses. Pupils equal, round and reactive to light, extraocular movements intact, sclera anicteric, conjunctiva clear. No lid lag. EARS, NOSE, THROAT: Ears normal, nares patent, oropharynx clear without exudates. Moist mucous membranes. NECK: Normal range of motion, supple without lymphadenopathy, JVD, or masses. No bruit appreciated. LUNGS: Breath sounds equal, clear to auscultation bilaterally. No wheezes, and no crackles. No accessory muscle use. HEART: Regular rate and rhythm, normal S1 and S2 without murmur, rub or gallop. ABDOMEN: Soft, nontender, not distended, normoactive bowel sounds, no guarding, no rebound, no masses. No hepatomegaly or splenomegaly. MUSCULOSKELETAL: Normal range of motion at all joints. No bony deformities or tenderness. No CVA tenderness. UPPER EXTREMITIES: 2+ pulses, warm, well-perfused. No cyanosis. No clubbing. No peripheral edema. LOWER EXTREMITIES: Petechial rash on R anterior ankle. 2+ pulses, warm, well- perfused. No calf tenderness. No peripheral edema. NEUROLOGICAL: slight R tongue deviation. Still with L arm dysmmetria. 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 5/5 strength BL in all other muscle groups. still with decreased sensation to light touch in stocking distribution to ankles BL. All other cranial nerves, muscle groups with preserved strength. Normal speech. PSYCHIATRIC: Cooperative. Good eye contact. Appropriate mood and affect. SKIN: Warm, dry, normal turgor, no rashes or lesions noted, normal capillary refill. Laboratory Results - last 24 hr CBC, BMP 11/26/17 07:24 11/26/17 07:24 11/26/17 07:24 11/26/17 07:24 11/26/17 11/26/17 11/26/17 05:39 07:00 07:24 WBC 6.9 RBC 4.38 Hgb 13.3 Hct 38.5 MCV 87.9 MCH 30.4 MCHC 34.6 RDW 14.1 Plt Count 203 MPV 8.3 Neutrophils % 59.3 Lymphocytes % 25.1 Monocytes % 6.4 Eosinophils % 7.9 H D Basophils % 1.3 Sodium Potassium Chloride Carbon Dioxide Anion Gap BUN Creatinine Creat Clearance w eGFR POC Glucometer 149 Random Glucose Calcium Total Bilirubin AST ALT Alkaline Phosphatase Total Protein Albumin TSH Cancelled 11/26/17 11/26/17 11/26/17 07:24 11:45 17:41 WBC RBC Hgb Hct MCV MCH MCHC RDW Plt Count MPV Neutrophils % Lymphocytes % Monocytes % Eosinophils % Basophils % Sodium 139 Potassium 3.9 Chloride 102 Carbon Dioxide 27 Anion Gap 10 BUN 11 Creatinine 1.0 Creat Clearance w eGFR > 60 POC Glucometer 181 188 Random Glucose 158 H Calcium 8.7 Total Bilirubin 0.6 AST 21 ALT 23 Alkaline Phosphatase 56 Total Protein 6.9 Albumin 3.3 L TSH 4.51 H 11/26/17 21:43 WBC RBC Hgb Hct MCV MCH MCHC RDW Plt Count MPV Neutrophils % Lymphocytes % Monocytes % Eosinophils % Basophils % Sodium Potassium Chloride Carbon Dioxide Anion Gap BUN Creatinine Creat Clearance w eGFR POC Glucometer 186 Random Glucose Calcium Total Bilirubin AST ALT Alkaline Phosphatase Total Protein Albumin TSH Active Medications Generic Name Dose Route Start Last Admin Trade Name Suzanne PRN Reason Stop Dose Admin Aspirin 81 mg 11/26/17 10:00 11/26/17 09:29 Ecotrin - PO 81 mg DAILY [facility] Administration Clopidogrel Bisulfate 75 mg 11/25/17 11:52 11/26/17 09:30 Plavix - PO 75 mg DAILY [facility] Administration Heparin Sodium (Porcine) 5,000 unit 11/24/17 22:00 11/26/17 22:39 Heparin - SQ 5,000 unit TID ANG[facility] Administration Insulin Aspart 1 vial 11/24/17 16:30 11/26/17 22:39 Novolog Vial Sliding Scale - SQ 2 units ACHS [facility] Administration Protocol Lisinopril 20 mg 11/26/17 10:00 11/26/17 09:29 Prinivil PO 20 mg DAILY [facility] Administration Meclizine HCl 25 mg 11/25/17 09:12 Antivert - PO TID PRN VERTIGO Metoclopramide HCl 10 mg 11/24/17 15:34 Reglan Injection - IVPUSH Q6H PRN NAUSEA AND/OR VOMITING Metoprolol Succinate 50 mg 11/26/17 09:11 11/26/17 09:29 Toprol Xl - PO 50 mg DAILY [facility] Administration Neomycin/Polymyxin/Bacitracin 1 applic 11/25/17 21:57 11/26/17 09:34 Neosporin Topical Ointment - TP 1 applic DAILY PRN Administration rash Niacin 500 mg 11/25/17 22:00 11/26/17 22:39 Niacin PO 500 mg BID [facility] Administration Rosuvastatin Calcium 20 mg 11/25/17 22:00 11/26/17 22:39 Crestor - PO 20 mg HS [facility] Administration No micro pending EKG 11/24 - rate 80, qtc 463, NAD, equivocal ST elevations in v2, prominent Twaves in v2 Head CT 11/24 - Impression: 1. Well demarcated infarction in the right gangliocapsular region as described above is new since MRI. This infarct is age indeterminate on CT. Please correlate clinically. If warranted, MRI may be obtained for further evaluation. 2. No acute intracranial hemorrhage , mass effects or hydrocephalus. 3. Chronic lacunar infarcts in bilateral thalami and left frontal subcortical white matter, unchanged from 11/06/2016. CXR 11/24 - Impression: Weak inspiration with resultant large heart and prominent central markings. Carotid doppler 11/24 - Intimal thickening at bifurcation, R>L. ECHO 11/25 - EF 40-45%, RV normal size, LA/RA normal, trace MR, trace TR, Abnormal diastolic relaxation MRI/MRA brain w/o contrast 11/25 - IMPRESSION: A 1.1 x 0.7 cm acute nonhemorrhagic infarct is seen within the left cerebellar hemisphere medially. In comparison to a previous MRI exam of 11/06/2016 there has been interval development of a chronic right basal ganglia infarct. Small chronic bilateral thalamic infarcts. Small chronic bilateral frontoparietal subcortical infarcts. - no stenosis noted on MRA ASSESSMENT/PLAN: 52 yo M w/ pmh of HTN, CAD, CVA x3, DM who presents with acute onset N/V, vertigo and gait ataxia/weakness beginning this AM. Now with MRI confirmed cerebellar stroke. Pt improving clinically today, only complaining of residual gait instability. D/c to rehab tomorrow #Suspected CVA vs. vertebrobasilar insufficiency - no tpa given, as outside window; NIHSS 2; carotid doppler studies as noted above; ECHO as noted above; MRI as above - cardiac monitoring - ASA, plavix daily - Crestor 20mg daily - Neuro consult, recs appreciated - Dr. Layne - PT eval noted; will require walker for short-term - Regular diet - MBS normal - d/c to rehab tomorrow with outpt follow-up #Elevated Trops - 0.11 x2 on admission, resolved #Hyperkalemia - Resolved, 3.7 today - Daily BMPs - Trend #Leukocytosis - resolved, likely reactive; not infectious - trend WBC, fever curve - if febrile, send cultures, start abx #HTN - BP <150/90 per neuro recs - Toprol XL 25 increased to 50mg daily - lisinopril 20mg dQ #DM2 - - ISS - BGM q4h #CAD - pt reports 3-vessel dz - Cards consulted, recs appreciated - Dr. Howell - ASA/plavix #HLD - Triglycerides in 425, cholesterol 214, LDL 126 - Crestor 20mg qD -c/w niacin, fish oil FEN PO hydration Daily lytes Regular diet PPX HSQ Plan discussed with attending, Dr. Cristina Trejo, PGY1
[2017-11-27] MEDS: INSULIN SLIDING SCALE (NOVOLOG) 1 VIAL SQ SCH ×4 (06:23→22:11)
[2017-11-27] MEDS: HEPARIN NA (PORCINE) 5,000 UNITS/ML 1ML VIAL SQ SCH ×3 (06:23→22:11)
[2017-11-27] MEDS ORDERED: PT OWN MED DRAWER 7, Y5N ONE ×2 (09:13→22:02)
--- NOTE | 2017-11-27 09:17 | PN ---
Progress Note (short form) - Note Progress Note: Neurology CHIEF COMPLAINT: N/V, unsteady gait, dizzyness HISTORY OF PRESENT ILLNESS: 52 yo M w/ pmh of HTN, CAD, CVA x3, DM who presented with acute onset N/V, vertigo and gait ataxia/weakness beginning morning of admission. Pt with 3 prior CVAs (8, 3 and 1 year ago per pt; no residual deficits), currently on ASA 325mg with reported compliance. He lives at home independent in all ADLs. Reportedly, brothers visited last night and he ingested two 6-packs of beer. He denied any symptoms at the time. He stated he awoke at 4AM and felt thirsty, drank a glass of water and immediately became nauseous. He stated he tried to walk to bathroom, however his legs felt too weak and unsteady fell back into bed. Pt also endorsed vertigo and lightheadness at the time, worsened by movement. Reportedly, every time he attempted to stand, he experienced transient vision loss. CT head completed in ER and demonstrated R basal ganglia infarct that is new compared to imaging from October 2016. No acute changes noted but chronic lacunar infarcts noted in b/l thalami and L frontal subcortical white matter. Not a TPA candidate as he was outside window. Carotid dopplers completed and also reviewed and did not demonstrate HD significant stenosis. He received a dose of Meclezine in the ER. Completed MRI brain which I reviewed and showed acute L medial cerebellar hemisphere acute infarct. Discussed this with patient and with primary team. Size and location suspicious for hypertensive etiology. Of note, MRA completed and did not show vascular malformations or aneurysms. Antiplatelet regiment has been adjusted to dual therapy with ASA 81 and plavix 75, patient aware and in agreement. Plan is for SNF for rehab of ongoing gait instability from CVA, patient in agreement. Primary team aware and in agreement. No new events overnight. Would like to go to [facility] as this is close to his mother and would allow her ease in seeing him. Echo completed and reviewed, reduced EF noted (40-45%). Active Medications Aspirin (Ecotrin -) 81 mg PO DAILY [facility] Last Admin: 11/26/17 09:29 Dose: 81 mg Clopidogrel Bisulfate (Plavix -) 75 mg PO DAILY [facility] Last Admin: 11/26/17 09:30 Dose: 75 mg Heparin Sodium (Porcine) (Heparin -) 5,000 unit SQ TID [facility] Last Admin: 11/27/17 06:23 Dose: 5,000 unit Insulin Aspart (Novolog Vial Sliding Scale -) 1 vial SQ ACHS [facility] PRN Reason: Protocol Last Admin: 11/27/17 06:23 Dose: 2 units Lisinopril (Prinivil) 20 mg PO DAILY [facility] Last Admin: 11/26/17 09:29 Dose: 20 mg Meclizine HCl (Antivert -) 25 mg PO TID PRN PRN Reason: VERTIGO Metoclopramide HCl (Reglan Injection -) 10 mg IVPUSH Q6H PRN PRN Reason: NAUSEA AND/OR VOMITING Metoprolol Succinate (Toprol Xl -) 50 mg PO DAILY [facility] Last Admin: 11/26/17 09:29 Dose: 50 mg Neomycin/Polymyxin/Bacitracin (Neosporin Topical Ointment -) 1 applic TP DAILY PRN PRN Reason: rash Last Admin: 11/26/17 09:34 Dose: 1 applic Niacin (Niacin) 500 mg PO BID [facility] Last Admin: 11/26/17 22:39 Dose: 500 mg Rosuvastatin Calcium (Crestor -) 20 mg PO HS [facility] Last Admin: 11/26/17 22:39 Dose: 20 mg PHYSICAL EXAMINATION Vital Signs Temperature 98.4 F 11/27/17 06:00 Pulse Rate 87 11/27/17 06:00 Respiratory Rate 18 11/27/17 08:44 Blood Pressure 156/84 11/27/17 06:00 O2 Sat by Pulse Oximetry (%) 97 11/24/17 23:34 GENERAL: Middle aged man, NAD, A&Ox3 HEAD: Normal with no signs of trauma. EYES: Wear glasses. Pupils equal, round and reactive to light, extraocular movements intact, sclera anicteric, conjunctiva clear. No lid lag. EARS, NOSE, THROAT: Ears normal, nares patent, oropharynx clear without exudates. Moist mucous membranes. NECK: Normal range of motion, supple without lymphadenopathy, JVD, or masses. No bruit appreciated. LUNGS: Breath sounds equal, clear to auscultation bilaterally. No wheezes, and no crackles. No accessory muscle use. HEART: Regular rate and rhythm, normal S1 and S2 without murmur, rub or gallop. ABDOMEN: Soft, nontender, not distended, normoactive bowel sounds, no guarding, no rebound, no masses. No hepatomegaly or splenomegaly. MUSCULOSKELETAL: Normal range of motion at all joints. No bony deformities or tenderness. No CVA tenderness. UPPER EXTREMITIES: 2+ pulses, warm, well-perfused. No cyanosis. No clubbing. No peripheral edema. LOWER EXTREMITIES: Petechial rash on R anterior ankle. 2+ pulses, warm, well- perfused. No calf tenderness. No peripheral edema. NEUROLOGICAL: No slurred speech, no facial droop, L side intact, R side 5-/5, slight decreased sensation to light touch in stocking distribution to ankles BL. dysmetria on finger to nose noted PSYCHIATRIC: Cooperative. Good eye contact. Appropriate mood and affect. SKIN: Warm, dry, normal turgor, no rashes or lesions noted, normal capillary refill. CBCD WBC 6.9 K/mm3 (4.0-10.0) 11/26/17 07:24 RBC 4.38 M/mm3 (4.00-5.60) 11/26/17 07:24 Hgb 13.3 GM/dL (11.7-16.9) 11/26/17 07:24 Hct 38.5 % (35.4-49) 11/26/17 07:24 MCV 87.9 fl (80-96) 11/26/17 07:24 MCHC 34.6 g/dl (32.0-35.9) 11/26/17 07:24 RDW 14.1 % (11.9-15.9) 11/26/17 07:24 Plt Count 203 K/MM3 (134-434) 11/26/17 07:24 MPV 8.3 fl (7.5-11.1) 11/26/17 07:24 CMP Sodium 139 mmol/L (136-145) 11/26/17 07:24 Potassium 3.9 mmol/L (3.5-5.1) 11/26/17 07:24 Chloride 102 mmol/L (98-107) 11/26/17 07:24 Carbon Dioxide 27 mmol/L (21-32) 11/26/17 07:24 Anion Gap 10 (8-16) 11/26/17 07:24 BUN 11 mg/dL (7-18) 11/26/17 07:24 Creatinine 1.0 mg/dL (0.7-1.3) 11/26/17 07:24 Creat Clearance w eGFR > 60 (>60) 11/26/17 07:24 Calcium 8.7 mg/dL (8.5-10.1) 11/26/17 07:24 Total Bilirubin 0.6 mg/dL (0.2-1.0) 11/26/17 07:24 AST 21 U/L (15-37) 11/26/17 07:24 ALT 23 U/L (12-78) 11/26/17 07:24 Alkaline Phosphatase 56 U/L (45-117) 11/26/17 07:24 Total Protein 6.9 g/dl (6.4-8.2) 11/26/17 07:24 Albumin 3.3 g/dl (3.4-5.0) L 11/26/17 07:[address] 11/24 - Impression: 1. Well demarcated infarction in the right gangliocapsular region as described above is new since MRI. This infarct is age indeterminate on CT. Please correlate clinically. If warranted, MRI may be obtained for further evaluation. 2. No acute intracranial hemorrhage , mass effects or hydrocephalus. 3. Chronic lacunar infarcts in bilateral thalami and left frontal subcortical white matter, unchanged from 11/06/2016. CXR 11/24 - Impression: Weak inspiration with resultant large heart and prominent central markings. 11/24 Carotid Doppler- No hemodynamically significant stenosis MRI/MRA 11/25/17: 1.1 X 0.7 cm L medial cerebellar CVA, acute. No AVM, aneurysm noted. Echo 11/26/17: Reduced EF 40-45% ASSESSMENT/PLAN: 52 yo M w/ pmh of HTN, CAD, CVA x3, DM who presented with acute onset N/V, vertigo and gait ataxia/weakness beginning morning of admission. Pt with 3 prior CVAs (8, 3 and 1 year ago per pt; no residual deficits), currently on ASA 325mg with reported compliance. CT head completed in ER and demonstrated R basal ganglia infarct that is new compared to imaging from October 2016. No acute changes noted but chronic lacunar infarcts noted in b/l thalami and L frontal subcortical white matter. MRI brain reviewed and acute CVA in L cerebellum noted Carotid dopplers completed and also reviewed and did not demonstrate HD significant stenosis. Ordered Meclezine 25mg PRN Echo reviewed, cardiology follow up Physcial therapy to be continued Monitor blood pressure, goal < 150/90 for now, goal < 130/80 as outpatient ASA decreased to 81mg and added Plavix 75mg for increased CVA prevention (combo of ASA 325 and Plavix 75 too much of bleed risk) Monitor for Afib, in which case AC would recommended and would not keep patient on dual Antiplatlet Continue Crestor, goal LDL < 70 Fall precautions Medication compliance encouraged Rehab placement when able
[2017-11-27] MEDS: ASPIRIN COATED 81 MG TABLET.EC PO SCH (09:27)
[2017-11-27] MEDS: LISINOPRIL 20 MG TABLET (FP) PO SCH (09:27)
[2017-11-27] MEDS: CLOPIDOGREL BISULFATE 75 MG TABLET (FP) PO SCH (09:27)
[2017-11-27] MEDS: NIACIN 500 MG TABLET PO SCH ×2 (09:28→22:11)
--- NOTE | 2017-11-27 10:33 | PN ---
Progress Note, Physician History of Present Illness: 52yo M with PMH CVA x3 (2011/2015/2016 with residual L weakness and blindness with has resolved), HTn, DM, CAD s/p stents, prostate ca presented to the ER due to dizzyness when he awoke this AM. assoc with multiple episodes of non- bloody emesis and diaphoresis. assoc with numbness/tingling in his lower extremities causing ataxic gait. reports he drank a 6 pack last night which is atypical for him. Had cardiac cath a year ago and was told he had 3 blockages but no stents were placed. was never placed on an additional medication for stroke prevention from what he recalls and was never told to stop a medication due to bleeding. denies CP, SOB, fever, chills, blurred vision, slurred speech, PMH Severe multivessel CAD; pt deciding on CABG vs PCI CVAx3 HTN DM hyperlipidemia overweight - Current Medication List Current Medications: Active Medications Aspirin (Ecotrin -) 81 mg PO DAILY [facility] Last Admin: 11/27/17 09:27 Dose: 81 mg Clopidogrel Bisulfate (Plavix -) 75 mg PO DAILY [facility] Last Admin: 11/27/17 09:27 Dose: 75 mg Heparin Sodium (Porcine) (Heparin -) 5,000 unit SQ TID [facility] Last Admin: 11/27/17 06:23 Dose: 5,000 unit Insulin Aspart (Novolog Vial Sliding Scale -) 1 vial SQ ACHS [facility] PRN Reason: Protocol Last Admin: 11/27/17 06:23 Dose: 2 units Lisinopril (Prinivil) 20 mg PO DAILY [facility] Last Admin: 11/27/17 09:27 Dose: 20 mg Meclizine HCl (Antivert -) 25 mg PO TID PRN PRN Reason: VERTIGO Metoclopramide HCl (Reglan Injection -) 10 mg IVPUSH Q6H PRN PRN Reason: NAUSEA AND/OR VOMITING Metoprolol Succinate (Toprol Xl -) 50 mg PO DAILY [facility] Last Admin: 11/27/17 09:27 Dose: 50 mg Neomycin/Polymyxin/Bacitracin (Neosporin Topical Ointment -) 1 applic TP DAILY PRN PRN Reason: rash Last Admin: 11/26/17 09:34 Dose: 1 applic Niacin (Niacin) 500 mg PO BID [facility] Last Admin: 11/27/17 09:28 Dose: 500 mg Rosuvastatin Calcium (Crestor -) 20 mg PO HS [facility] Last Admin: 11/26/17 22:39 Dose: 20 mg - Objective Vital Signs: Vital Signs Temperature 98 F 11/27/17 09:26 Pulse Rate 95 H 11/27/17 09:26 Respiratory Rate 20 11/27/17 09:26 Blood Pressure 144/80 11/27/17 09:26 O2 Sat by Pulse Oximetry (%) 97 11/24/17 23:34 Eyes: Yes: WNL, Conjunctiva Clear, EOM Intact HENT: Yes: WNL, Atraumatic, Normocephalic Neck: Yes: WNL, Supple, Trachea Midline Cardiovascular: Yes: WNL, Regular Rate and Rhythm Respiratory: Yes: WNL, Regular, CTA Bilaterally Gastrointestinal: Yes: WNL, Normal Bowel Sounds Genitourinary: Yes: WNL Musculoskeletal: Yes: WNL Extremities: Yes: WNL Edema: No Integumentary: Yes: WNL Neurological: Yes: Alert, Weakness ...Motor Strength: WNL Psychiatric: Yes: WNL Labs: CBC, BMP 11/26/17 07:24 11/26/17 07:24 INR, PTT INR 0.98 (0.82-1.09) 11/25/17 07:25 Problem List - Problems (1) Cerebrovascular accident (CVA) Code(s): I63.9 - CEREBRAL INFARCTION, UNSPECIFIED (2) Vertigo Code(s): R42 - DIZZINESS AND GIDDINESS (3) Asthma exacerbation Code(s): J45.901 - UNSPECIFIED ASTHMA WITH (ACUTE) EXACERBATION (4) Blurred vision Code(s): H53.8 - OTHER VISUAL DISTURBANCES (5) CHF (congestive heart failure) Code(s): I50.9 - HEART FAILURE, UNSPECIFIED (6) Cervical strain, acute Code(s): S16.1XXA - STRAIN OF MUSCLE, FASCIA AND TENDON AT NECK LEVEL, INIT Qualifiers: Encounter type: initial encounter Qualified Code(s): S16.1XXA - Strain of muscle, fascia and tendon at neck level, initial encounter (7) Chronic shoulder pain Code(s): M25.519 - PAIN IN UNSPECIFIED SHOULDER; G89.29 - OTHER CHRONIC PAIN Qualifiers: Laterality: right Qualified Code(s): M25.511 - Pain in right shoulder (8) DVT prophylaxis Code(s): EDP8854 - (9) Diabetes mellitus Code(s): E11.9 - TYPE 2 DIABETES MELLITUS WITHOUT COMPLICATIONS (10) [place] cardiac risk >20% in next 10 years Code(s): Z91.89 - OTH PERSONAL RISK FACTORS, NOT ELSEWHERE CLASSIFIED (11) Hyperglycemia Code(s): R73.9 - HYPERGLYCEMIA, UNSPECIFIED (12) Hyperlipidemia Code(s): E78.5 - HYPERLIPIDEMIA, UNSPECIFIED Qualifiers: Hyperlipidemia type: unspecified Qualified Code(s): E78.5 - Hyperlipidemia , unspecified (13) Hypertension Code(s): I10 - ESSENTIAL (PRIMARY) HYPERTENSION Qualifiers: Hypertension type: essential hypertension Qualified Code(s): I10 - Essential (primary) hypertension (14) Musculoskeletal pain Code(s): M79.1 - MYALGIA (15) Obesity Code(s): E66.9 - OBESITY, UNSPECIFIED (16) Sprain of foot, right Code(s): S93.601A - UNSPECIFIED SPRAIN OF RIGHT FOOT, INITIAL ENCOUNTER Qualifiers: Encounter type: initial encounter Qualified Code(s): S93.601A - Unspecified sprain of right foot, initial encounter (17) Sprain of right ankle Code(s): S93.401A - SPRAIN OF UNSPECIFIED LIGAMENT OF RIGHT ANKLE, INIT ENCNTR Qualifiers: Encounter type: initial encounter Involved ligament of ankle: unspecified ligament Qualified Code(s): S93.401A - Sprain of unspecified ligament of right ankle, initial encounter (18) Visual field cut Code(s): H53.40 - UNSPECIFIED VISUAL FIELD DEFECTS Assessment/Plan - Problems (1) Acute on chronic systolic and diastolic heart failure, NYHA class 1 Code(s): I50.43 - ACUTE ON CHRONIC COMBINED SYSTOLIC AND DIASTOLIC HRT FAIL (2) Diabetes Code(s): E11.9 - TYPE 2 DIABETES MELLITUS WITHOUT COMPLICATIONS (3) Cerebrovascular accident (CVA) Code(s): I63.9 - CEREBRAL INFARCTION, UNSPECIFIED (4) Hyperlipidemia Code(s): E78.5 - HYPERLIPIDEMIA, UNSPECIFIED Qualifiers: Hyperlipidemia type: unspecified Qualified Code(s): E78.5 - Hyperlipidemia , unspecified (5) Hypertension Code(s): I10 - ESSENTIAL (PRIMARY) HYPERTENSION Qualifiers: Hypertension type: essential hypertension Qualified Code(s): I10 - Essential (primary) hypertension (6) Obesity Code(s): E66.9 - OBESITY, UNSPECIFIED (7) Coronary artery disease Assessment/Plan: known to have severe multivessel CAD by angiogram within the past few months. I discussed findings of CVA today with pt's interventionalist, Dr. Du, who believes stenting rather than CABG may be the preferred method of treating his CAD, several weeks after CVA has been treated. Continue ASA and clopidogrel. High-dose statin. Diet change, weight loss, and alcohol cessation were discussed in detail with pt and family. (Niacin, while potentially lowering triglycerides, has not been shown to be effective at lowering cardiac events or mortality; fibrate may be marginally better, though with increased side-effects when added to statin. Diet changes and exercise need to be emphasized; fish oil capsules might have value in this setting; Zetia would lower LDL, with less effect on triglycerides). Code(s): I25.10 - ATHSCL HEART DISEASE OF [place] CORONARY ARTERY W/O ANG PCTRS
--- NOTE | 2017-11-27 12:41 | PN ---
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 Tolerating diet. Selected Entries 11/26/17 11/26/17 11/26/17 01:41 05:48 09:08 Breakfast Lunch Temperature 98 F 98.1 F 98 F 11/26/17 11/26/17 11/26/17 11:34 14:43 18:58 Breakfast 75% Lunch 75% Temperature 98 F 98.8 F 11/26/17 11/27/17 11/27/17 22:00 02:00 06:00 Breakfast Lunch Temperature 99.5 F 98.2 F 98.4 F 11/27/17 09:26 Breakfast Lunch Temperature 98 F Laboratory Tests 11/26/17 07:24 WBC 6.9 No further f/u indicated at this time.
--- NOTE | 2017-11-27 14:23 | PN ---
Teaching Attending Note Name of Resident: Alvarez Trejo ATTENDING PHYSICIAN STATEMENT I saw and evaluated the patient. I reviewed the resident's note and discussed the case with the resident. I agree with the resident's findings and plan as documented with exceptions below. SUBJECTIVE: Patient seen and examined. continues to improve, working with PT, no new concerns. OBJECTIVE: Vital Signs Period Temp Pulse Resp BP Sys/[place] Pulse Ox Last 24 Hr 98 F-99.5 F 82-95 18-20 136-160/80-97 Intake & Output 11/24/17 11/25/17 11/26/17 11/27/17 23:59 23:59 23:59 23:59 Intake Total 50 430 10 240 Output Total 100 Balance 50 430 -90 240 Weight 190 lb 213 lb 8 oz General: sitting in bed in no acute distress Neuro: unchanged exam Home Medication List Medication Instructions Recorded Confirmed Type Metformin HCl [Glucophage] 500 mg PO DAILY 08/19/15 11/25/17 History Lisinopril [Prinivil] 20 mg PO DAILY 11/04/16 11/25/17 History Nitroglycerin [Nitrostat] 0.4 mg SL PRN 11/24/17 11/24/17 History Active Medications Generic Name Dose Route Start Last Admin Trade Name Freq PRN Reason Stop Dose Admin Aspirin 81 mg 11/26/17 10:00 11/27/17 09:27 Ecotrin - PO 81 mg DAILY [facility] Administration Clopidogrel Bisulfate 75 mg 11/25/17 11:52 11/27/17 09:27 Plavix - PO 75 mg DAILY [facility] Administration Heparin Sodium (Porcine) 5,000 unit 11/24/17 22:00 11/27/17 06:23 Heparin - SQ 5,000 unit TID [facility] Administration Insulin Aspart 1 vial 11/24/17 16:30 11/27/17 06:23 Novolog Vial Sliding Scale - SQ 2 units ACHS [facility] Administration Protocol Lisinopril 20 mg 11/26/17 10:00 11/27/17 09:27 Prinivil PO 20 mg DAILY [facility] Administration Meclizine HCl 25 mg 11/25/17 09:12 Antivert - PO TID PRN VERTIGO Metoclopramide HCl 10 mg 11/24/17 15:34 Reglan Injection - IVPUSH Q6H PRN NAUSEA AND/OR VOMITING Metoprolol Succinate 50 mg 11/26/17 09:11 11/27/17 09:27 Toprol Xl - PO 50 mg DAILY [facility] Administration Neomycin/Polymyxin/Bacitracin 1 applic 11/25/17 21:57 11/26/17 09:34 Neosporin Topical Ointment - TP 1 applic DAILY PRN Administration rash Niacin 500 mg 11/25/17 22:00 11/27/17 09:28 Niacin PO 500 mg BID [facility] Administration Rosuvastatin Calcium 20 mg 11/25/17 22:00 11/26/17 22:39 Crestor - PO 20 mg HS [facility] Administration Laboratory Results - last 24 hr 11/26/17 11/26/17 11/26/17 07:00 07:24 17:41 Sodium 139 Potassium 3.9 Chloride 102 Carbon Dioxide 27 Anion Gap 10 BUN 11 Creatinine 1.0 Creat Clearance w eGFR > 60 POC Glucometer 188 Random Glucose 158 H Calcium 8.7 Total Bilirubin 0.6 AST 21 ALT 23 Alkaline Phosphatase 56 Total Protein 6.9 Albumin 3.3 L TSH Cancelled 4.51 H Free T4 11/26/17 11/27/17 11/27/17 21:43 06:07 07:02 Sodium Potassium Chloride Carbon Dioxide Anion Gap BUN Creatinine Creat Clearance w eGFR POC Glucometer 186 170 Random Glucose Calcium Total Bilirubin AST ALT Alkaline Phosphatase Total Protein Albumin TSH Free T4 0.94 ASSESSMENT AND PLAN: 52yo M with PMH CVA x3 (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 MRA noted. 2D echo noted. Continue ASA/plavix/statin. BP improved, toprol XL increased, home BP monitoring and outpatient follow up. Continue lisinopril ISS, diabetic diet. resume metformin. patient wants to go home, seen by PT, home services arranged, d/ chome with services. Plan for home BP monitoring, need for thyroid function follow up and instructions discussed in detail with patient and all questions answered.
--- NOTE | 2017-11-27 17:50 | DS ---
Physical Exam: SUBJECTIVE: Patient seen and examined - Dizziness/lightheadness resolved today; no further episodes of N/V; Still endorsing L leg weakness; Denies f/c/n/v/d, CP, cough, ab pain, back pain; ambulated 200ft with PT this morning OBJECTIVE: Vital Signs Intake & Output 11/24/17 11/25/17 11/26/17 11/27/17 23:59 23:59 23:59 23:59 Intake Total 50 430 10 240 Output Total 100 Balance 50 430 -90 240 Weight 86.183 kg 96.842 kg Period Temp Pulse Resp BP Sys/Dumont Pulse Ox Last 24 Hr 97 F-99.5 F 87-97 18-20 136-160/80-97 PHYSICAL EXAM GENERAL: Middle aged man, NAD, A&Ox3 HEAD: Normal with no signs of trauma. EYES: Glasses. Pupils equal, round and reactive to light, extraocular movements intact, sclera anicteric, conjunctiva clear. No lid lag. EARS, NOSE, THROAT: Ears normal, nares patent, oropharynx clear without exudates. Moist mucous membranes. NECK: Normal range of motion, supple without lymphadenopathy, JVD, or masses. No bruit appreciated. LUNGS: Breath sounds equal, clear to auscultation bilaterally. No wheezes, and no crackles. No accessory muscle use. HEART: Regular rate and rhythm, normal S1 and S2 without murmur, rub or gallop. ABDOMEN: Soft, nontender, not distended, normoactive bowel sounds, no guarding, no rebound, no masses. No hepatomegaly or splenomegaly. MUSCULOSKELETAL: Normal range of motion at all joints. No bony deformities or tenderness. No CVA tenderness. UPPER EXTREMITIES: 2+ pulses, warm, well-perfused. No cyanosis. No clubbing. No peripheral edema. LOWER EXTREMITIES: Petechial rash on R anterior ankle. 2+ pulses, warm, well- perfused. No calf tenderness. No peripheral edema. NEUROLOGICAL: slight R tongue deviation. Still with L arm dysmmetria. 4+/5 L arm machine washer. 5/5 strength BL in all other muscle groups. still with decreased sensation to light touch in stocking distribution to ankles BL. All other cranial nerves, muscle groups with preserved strength. Normal speech. PSYCHIATRIC: Cooperative. Good eye contact. Appropriate mood and affect. SKIN: Warm, dry, normal turgor, no rashes or lesions noted, normal capillary refill. LABS Laboratory Results - last 24 hr CBC, BMP 11/26/17 07:24 11/26/17 07:24 11/26/17 11/26/17 11/26/17 07:00 07:24 17:41 Sodium 139 Potassium 3.9 Chloride 102 Carbon Dioxide 27 Anion Gap 10 BUN 11 Creatinine 1.0 Creat Clearance w eGFR > 60 POC Glucometer 188 Random Glucose 158 H Calcium 8.7 Total Bilirubin 0.6 AST 21 ALT 23 Alkaline Phosphatase 56 Total Protein 6.9 Albumin 3.3 L TSH Cancelled 4.51 H Free T4 11/26/17 11/27/17 11/27/17 21:43 06:07 07:02 Sodium Potassium Chloride Carbon Dioxide Anion Gap BUN Creatinine Creat Clearance w eGFR POC Glucometer 186 170 Random Glucose Calcium Total Bilirubin AST ALT Alkaline Phosphatase Total Protein Albumin TSH Free T4 0.94 No micro pending EKG 11/24 - rate 80, qtc 463, NAD, equivocal ST elevations in v2, prominent Twaves in v2 Head CT 11/24 - Impression: 1. Well demarcated infarction in the right gangliocapsular region as described above is new since MRI. This infarct is age indeterminate on CT. Please correlate clinically. If warranted, MRI may be obtained for further evaluation. 2. No acute intracranial hemorrhage , mass effects or hydrocephalus. 3. Chronic lacunar infarcts in bilateral thalami and left frontal subcortical white matter, unchanged from 11/06/2016. CXR 11/24 - Impression: Weak inspiration with resultant large heart and prominent central markings. Carotid doppler 11/24 - Intimal thickening at bifurcation, R>L. ECHO 11/25 - EF 40-45%, RV normal size, LA/RA normal, trace MR, trace TR, Abnormal diastolic relaxation MRI/MRA brain w/o contrast 11/25 - IMPRESSION: A 1.1 x 0.7 cm acute nonhemorrhagic infarct is seen within the left cerebellar hemisphere medially. In comparison to a previous MRI exam of 11/06/2016 there has been interval development of a chronic right basal ganglia infarct. Small chronic bilateral thalamic infarcts. Small chronic bilateral frontoparietal subcortical infarcts. - no stenosis noted on MRA Consults: Neuro - Dr. Layne Cardiology - Dr. Brooks HOSPITAL COURSE: Prehospital course: 52 yo M w/ pmh of HTN, CAD, CVA x3, DM who presents with acute onset N/V, vertigo and gait ataxia/weakness beginning this AM. Pt with 3 prior CVAs (8, 3 and 1 year ago per pt; no residual deficits), currently only on ASA with good compliance. Pt lives at home independent in all ADLs. Pt states his brothers visited last night and he ingested two 6-packs of beer. He denies any symptoms at the time. Pt states he awoke at 4AM and felt thirsty, drank a glass of water and immediately became nauseous. Pt states he tried to walk to bathroom, however his legs felt too weak and unsteady fell back into bed. Pt also endorsed vertigo and lightheadness at the time, worsened by movement. Pt also states every time he attempted to stand, he experienced transient vision loss. Pt endorses multiple episodes of nonbloody, nonbilious emesis throughout AM. Pt then presented to ED from home. Denies any CHRISTIAN, SOB, palps, CP, ab pain, cough, diarrhea, dysuria, melena, f/c. No recent travel, prolonged immobilization or sick contacts. Pt with Echo 4-5 months ago, however unsure of results. States he received LHC last year in November, but again unsure of results. States his prior strokes were due to plaque in coronary arteries, endorsing 3-vessel disease, however has never received CABG. ER course was notable for: (1)CT head w/ results noted below (2)BP 180/108 on presentation (3)ReglanAdy, NS 1L given Hospital course (by problem) - #Posterior cerebellar ischemic stroke - On admission, no tpa given, as outside time window on presentation; NIHSS 2 on admission; carotid doppler studies, ECHO as noted above; Neuro consulted. Patient started on plavix, continued on asa. Switched to Crestor 20mg. 11/25 MRI/MRA with confirmed 1.1cm x 0.7cm nonhemorrhagic infarct in left cerebellar hemisphere; MBS normal; PT initially with unsteady gait, unable to ambulate, nausea, dizziness, +romberg; Pt symptoms improved during admission, walked 200 ft with PT; pt cleared for discharge home on ASA/plavix with outpt f/u with neurology and cardiology; residual symptoms included L arm dymmetria and mild wide-based gait ataxia #Elevated Trops - 0.11 x2 on admission, resolved #Hyperkalemia - 5.3 on admission; Resolved, 3.7 today #Leukocytosis - 12 on admisison; resolved, likely reactive; not infectious #HTN - Initally BP 180/108 BP; permissive htn 220<110; decreased progressively to 150/90 on discharge per neuro recs; Home toprol XL 25 increased to 50mg daily ; restarted on home lisinopril 20mg #DM2 - well controlled on admission; ISS #CAD - pt reports 3-vessel dz; cardiology consulted; pt placed on plavix given hx of CVAx3 and three vessel dz; outpt f/u scheduled #HLD - Triglycerides in 425, cholesterol 214, LDL 126 during admission; pt started on niacin, fish oil; switched to crestor 20mg given stroke benefits Date of Admission:11/24/17 Date of Discharge: 11/27/17 Pt is stable and medically cleared for discharge home with outpt f/u with cardiology and neurology. Minutes to complete discharge: 35 Discharge Summary Reason For Visit: VERTIGO/CVA Current Active Problems Acute on chronic systolic and diastolic heart failure, NYHA class 1 (Acute) Cerebrovascular accident (CVA) (Acute) Coronary artery disease (Acute) Diabetes (Acute) Vertigo (Acute) Condition: Stable - Instructions Diet, Activity, Other Instructions: During your stay at [facility], you were admitted for an imaging-confirmed stroke. You received an MRI during your stay and which confirmed a small stroke in your cerebellum. You were seen by our neurology and cardiology teams and are being discharged home with outpatient follow-up with our specialists. MEDICATIONS: The following medications were added to your home regimen. Please take them as directed below. Niacin 500mg, one pill by mouth, twice a day Crestor 20mg, one pill by mouth before you go to bed Plavix 75mg, one pill by mouth once a day The following changes were made to your home medication. Please take them as directed below. Toprol XL 25mg increased to 50mg, one pill twice a day by mouth Please stop taking the following medications: Pravastatin Please continue to take all other home medications as previously directed. FOLLOW-UPS: Please follow-up with your primary care physician in one week for further management of your medications. Please call their office to schedule an appointment. Please follow-up with our aluminum pourer, Dr. Brooks, in one week for further management of your cardiac medication. His contact number has been provided in this packet. Please call his office to make an appointment. Please follow-up with our neurologist, Dr. Layne, in two weeks in his office. His contact information has been provided in this packet. Please call to schedule an appointment. During your stay, you received an MRI of your brain which showed a small stroke in you cerebellum, the area of the brain that controls coordination. Please review these results further with Dr. Layne during your outpatient appointment. You lipid profile was notable for high HDL cholesterol and triglycerides. You are being started on medication to help control your cholesterol and fatty acids. Please obtain a repeat lipid profile in three month. STRONGLY RECOMMEND HOME BP MONITORING DAILY TILL NEXT DOCTOR VISIT AND NOTIFY YOUR DOCTOR IF Systolic BP (UPPER BP)>135 PERSISTENTLY OR < 100 OR ANY DIZZINESS NOTED. YOUR THYROID TEST TSH WAS ABNORMAL AND FURTHER TESTS INCLUDING FREE T4 AND TOTAL T3 HAVE BEEN SENT, RESULTS ARE PENDING, YOU CAN HAVE YOUR DOCTOR FOLLOW UP RESULTS IN 1 WEEK OR REPEAT THYROID STUDIES IN 1-2 WEEKS. DIET/EXERCISE: Please adhere to a low fat diet. You were evaluated by our physical therapy team , who determined you will require a walker for ambulation at home. Advise 24 hour assist and superivison till next doctor visit. Do not drive or operate heavy machinery until cleared by your doctor. Please return to the hospital if you experience any of the following symptoms: - New persistent vision changes - Prolonged headaches, dizziness, double vision - Any new numbness or weakness in your arms, legs or face - Changes in your speech or difficulty speaking - Prolonged confusion or disorientation - Any new or concerning symptoms Referrals: Sha Layne MD [Staff Physician] - 2 Weeks Marino Brooks MD [Staff Physician] - 1 Week Xuan Carlson [Primary Care Provider] - 1 Week Disposition: VNS/HOME HEALTH CARE - Home Medications Comprehensive Discharge Medication List: Ambulatory Orders Metformin HCl [Glucophage] 500 mg PO DAILY 08/19/15 Lisinopril [Prinivil] 20 mg PO DAILY 11/04/16 Nitroglycerin [Nitrostat] 0.4 mg SL PRN 11/24/17 Aspirin Coated [Ecotrin -] 81 mg PO DAILY #30 tablet.ec 11/27/17 Clopidogrel Bisulfate [Plavix -] 75 mg PO DAILY #30 tablet 11/27/17 Metoprolol Succinate [Toprol XL -] 50 mg PO DAILY #60 tab.sr.24h 11/27/17 Niacin [Niacin -] 500 mg PO BID #60 tablet 11/27/17 Oak-3 Acid Ethyl Esters [Lovaza -] 2 gm PO BID #60 cap 11/27/17 Rosuvastatin [Crestor -] 20 mg PO HS #30 tablet 11/27/17 This patient is new to me today: No Emergency Visit: Yes ED Registration Date: 11/24/17 Care time: The patient presented to the Emergency Department on the above date and was hospitalized for further evaluation of their emergent condition. Critical Care patient: No - Discharge Referral Referred to [facility] Med P.C.: No
[2017-11-27] MEDS: ROSUVASTATIN CA 20 MG TABLET (FP) PO SCH (22:11)
[2017-11-28] MEDS: HEPARIN NA (PORCINE) 5,000 UNITS/ML 1ML VIAL SQ SCH ×3 (05:36→21:55)
[2017-11-28] MEDS: INSULIN SLIDING SCALE (NOVOLOG) 1 VIAL SQ SCH ×4 (06:06→21:56)
--- NOTE | 2017-11-28 07:27 | PN ---
Teaching Attending Note Name of Resident: Alvarez Trejo ATTENDING PHYSICIAN STATEMENT I saw and evaluated the patient. I reviewed the resident's note and discussed the case with the resident. I agree with the resident's findings and plan as documented with exceptions below. SUBJECTIVE: Patient seen and examined, unable to leave yesterday, still with left sided symptoms, but improving, agreable to rehab, no new complaints. OBJECTIVE: Vital Signs Period Temp Pulse Resp BP Sys/Dumont Pulse Ox Last 24 Hr 97 F-99 F 85-97 17-20 132-164/80-97 Intake & Output 11/25/17 11/26/17 11/27/17 11/28/17 23:59 23:59 23:59 23:59 Intake Total 430 10 540 250 Output Total 100 Balance 430 -90 540 250 Weight 213 lb 8 oz General: sitting in bed no acute distress Neuro: unchanged exam, left sided finger past pointing Home Medication List Medication Instructions Recorded Confirmed Type Metformin HCl [Glucophage] 500 mg PO DAILY 08/19/15 11/25/17 History Lisinopril [Prinivil] 20 mg PO DAILY 11/04/16 11/25/17 History Nitroglycerin [Nitrostat] 0.4 mg SL PRN 11/24/17 11/24/17 History Active Medications Generic Name Dose Route Start Last Admin Trade Name Freq PRN Reason Stop Dose Admin Aspirin 81 mg 11/26/17 10:00 11/27/17 09:27 Ecotrin - PO 81 mg DAILY ANGELITA Administration Clopidogrel Bisulfate 75 mg 11/25/17 11:52 11/27/17 09:27 Plavix - PO 75 mg DAILY ANGELITA Administration Heparin Sodium (Porcine) 5,000 unit 11/24/17 22:00 11/28/17 05:36 Heparin - SQ 5,000 unit TID ANGELITA Administration Insulin Aspart 1 vial 11/24/17 16:30 11/28/17 06:06 Novolog Vial Sliding Scale - SQ 2 units ACHS ANGELITA Administration Protocol Lisinopril 20 mg 11/26/17 10:00 11/27/17 09:27 Prinivil PO 20 mg DAILY ANGELITA Administration Meclizine HCl 25 mg 11/25/17 09:12 Antivert - PO TID PRN VERTIGO Metoclopramide HCl 10 mg 11/24/17 15:34 Reglan Injection - IVPUSH Q6H PRN NAUSEA AND/OR VOMITING Metoprolol Succinate 50 mg 11/26/17 09:11 11/27/17 09:27 Toprol Xl - PO 50 mg DAILY ANGELITA Administration Neomycin/Polymyxin/Bacitracin 1 applic 11/25/17 21:57 11/26/17 09:34 Neosporin Topical Ointment - TP 1 applic DAILY PRN Administration rash Niacin 500 mg 11/25/17 22:00 11/27/17 22:11 Niacin PO 500 mg BID ANGELITA Administration Rosuvastatin Calcium 20 mg 11/25/17 22:00 11/27/17 22:11 Crestor - PO 20 mg HS ANGELITA Administration Laboratory Results - last 24 hr 11/27/17 11/27/17 11/27/17 07:02 17:17 20:12 POC Glucometer 229 189 Free T4 0.94 11/28/17 05:09 POC Glucometer 165 Free T4 ASSESSMENT AND PLAN: 52yo M with PMH CVA x3 (2011/ with residual L weakness and blindness with has resolved), HTN, DM, CAD s/p stents, multivessel CAD, prostate ca presented to the ER due to dizziness found with ACute left cerebellar CVA -Acute left Cerebellar CVA, likely hypertensive -Old basal ganglia infarct -Multivessel CAD s/p PCI, further plan for CABG vs PCI -Elevated Troponin, suspect demand type II NSTEMi from above -ETOH binge prior to admission -HTN -DM -HLD -obesity Plan Neurology/cardiology input appreciated. MRA noted. 2D echo noted. Continue ASA/plavix/statin. BP improved, toprol XL increased, home BP monitoring and outpatient follow up. Continue lisinopril ISS, diabetic diet. resume metformin. patient now wants rehab, bed arranged, d/c to [facility] today. Plan for home BP monitoring, need for thyroid function follow up and instructions discussed in detail again with patient and all questions answered.
[2017-11-28] MEDS ORDERED: PT OWN MED DRAWER 7, Y5N ONE ×3 (08:50→22:14)
[2017-11-28] MEDS: ASPIRIN COATED 81 MG TABLET.EC PO SCH ×2 (08:58→11:17)
[2017-11-28] MEDS: CLOPIDOGREL BISULFATE 75 MG TABLET (FP) PO SCH ×2 (08:58→11:17)
[2017-11-28] MEDS: LISINOPRIL 20 MG TABLET (FP) PO SCH ×2 (08:59→11:18)
--- NOTE | 2017-11-28 09:46 | PN ---
Progress Note (short form) - Note Progress Note: Neurology HISTORY OF PRESENT ILLNESS: 52 yo M w/ pmh of HTN, CAD, CVA x3, DM who presented with acute onset N/V, vertigo and gait ataxia/weakness beginning morning of admission. Pt with 3 prior CVAs (8, 3 and 1 year ago per pt; no residual deficits), currently on ASA 325mg with reported compliance. He lives at home independent in all ADLs. Reportedly, brothers visited last night and he ingested two 6-packs of beer. He denied any symptoms at the time. He stated he awoke at 4AM and felt thirsty, drank a glass of water and immediately became nauseous. He stated he tried to walk to bathroom, however his legs felt too weak and unsteady fell back into bed. Pt also endorsed vertigo and lightheadness at the time, worsened by movement. Reportedly, every time he attempted to stand, he experienced transient vision loss. CT head completed in ER and demonstrated R basal ganglia infarct that is new compared to imaging from October 2016. No acute changes noted but chronic lacunar infarcts noted in b/l thalami and L frontal subcortical white matter. Not a TPA candidate as he was outside window. Carotid dopplers completed and also reviewed and did not demonstrate HD significant stenosis. He received a dose of Meclezine in the ER. Completed MRI brain which I reviewed and showed acute L medial cerebellar hemisphere acute infarct. Discussed this with patient and with primary team. Size and location suspicious for hypertensive etiology. Of note, MRA completed and did not show vascular malformations or aneurysms. Antiplatelet regiment has been adjusted to dual therapy with ASA 81 and plavix 75, patient aware and in agreement. Plan is for SNF for rehab of ongoing gait instability from CVA, patient in agreement. Primary team aware and in agreement. No new events overnight. Echo completed and reviewed, reduced EF noted (40-45%). Patient didn't want to go to rehab yesterday but spoke to his daughter and now in agreement. Active Medications Aspirin (Ecotrin -) 81 mg PO DAILY [facility] Last Admin: 11/28/17 08:58 Dose: 81 mg Clopidogrel Bisulfate (Plavix -) 75 mg PO DAILY [facility] Last Admin: 11/28/17 08:58 Dose: 75 mg Heparin Sodium (Porcine) (Heparin -) 5,000 unit SQ TID [facility] Last Admin: 11/28/17 05:36 Dose: 5,000 unit Insulin Aspart (Novolog Vial Sliding Scale -) 1 vial SQ ACHS [facility] PRN Reason: Protocol Last Admin: 11/28/17 06:06 Dose: 2 units Lisinopril (Prinivil) 20 mg PO DAILY [facility] Last Admin: 11/28/17 08:59 Dose: 20 mg Meclizine HCl (Antivert -) 25 mg PO TID PRN PRN Reason: VERTIGO Metoclopramide HCl (Reglan Injection -) 10 mg IVPUSH Q6H PRN PRN Reason: NAUSEA AND/OR VOMITING Metoprolol Succinate (Toprol Xl -) 50 mg PO DAILY [facility] Last Admin: 11/28/17 08:58 Dose: 50 mg Neomycin/Polymyxin/Bacitracin (Neosporin Topical Ointment -) 1 applic TP DAILY PRN PRN Reason: rash Last Admin: 11/26/17 09:34 Dose: 1 applic Niacin (Niacin) 500 mg PO BID [facility] Last Admin: 11/27/17 22:11 Dose: 500 mg Rosuvastatin Calcium (Crestor -) 20 mg PO HS [facility] Last Admin: 11/27/17 22:11 Dose: 20 mg PHYSICAL EXAMINATION Vital Signs Temperature 98.1 F 11/28/17 06:00 Pulse Rate 85 11/28/17 06:00 Respiratory Rate 17 11/28/17 06:00 Blood Pressure 132/83 11/28/17 06:00 O2 Sat by Pulse Oximetry (%) 97 11/24/17 23:34 GENERAL: Middle aged man, NAD, A&Ox3 HEAD: Normal with no signs of trauma. EYES: Wear glasses. Pupils equal, round and reactive to light, extraocular movements intact, sclera anicteric, conjunctiva clear. No lid lag. EARS, NOSE, THROAT: Ears normal, nares patent, oropharynx clear without exudates. Moist mucous membranes. NECK: Normal range of motion, supple without lymphadenopathy, JVD, or masses. No bruit appreciated. LUNGS: Breath sounds equal, clear to auscultation bilaterally. No wheezes, and no crackles. No accessory muscle use. HEART: Regular rate and rhythm, normal S1 and S2 without murmur, rub or gallop. ABDOMEN: Soft, nontender, not distended, normoactive bowel sounds, no guarding, no rebound, no masses. No hepatomegaly or splenomegaly. MUSCULOSKELETAL: Normal range of motion at all joints. No bony deformities or tenderness. No CVA tenderness. UPPER EXTREMITIES: 2+ pulses, warm, well-perfused. No cyanosis. No clubbing. No peripheral edema. LOWER EXTREMITIES: Petechial rash on R anterior ankle. 2+ pulses, warm, well- perfused. No calf tenderness. No peripheral edema. NEUROLOGICAL: No slurred speech, no facial droop, L side intact, R side 5-/5, slight decreased sensation to light touch in stocking distribution to ankles BL. dysmetria on finger to nose noted PSYCHIATRIC: Cooperative. Good eye contact. Appropriate mood and affect. SKIN: Warm, dry, normal turgor, no rashes or lesions noted, normal capillary refill. CBCD WBC 6.9 K/mm3 (4.0-10.0) 11/26/17 07:24 RBC 4.38 M/mm3 (4.00-5.60) 11/26/17 07:24 Hgb 13.3 GM/dL (11.7-16.9) 11/26/17 07:24 Hct 38.5 % (35.4-49) 11/26/17 07:24 MCV 87.9 fl (80-96) 11/26/17 07:24 MCHC 34.6 g/dl (32.0-35.9) 11/26/17 07:24 RDW 14.1 % (11.9-15.9) 11/26/17 07:24 Plt Count 203 K/MM3 (134-434) 11/26/17 07:24 MPV 8.3 fl (7.5-11.1) 11/26/17 07:24 CMP Sodium 139 mmol/L (136-145) 11/26/17 07:24 Potassium 3.9 mmol/L (3.5-5.1) 11/26/17 07:24 Chloride 102 mmol/L (98-107) 11/26/17 07:24 Carbon Dioxide 27 mmol/L (21-32) 11/26/17 07:24 Anion Gap 10 (8-16) 11/26/17 07:24 BUN 11 mg/dL (7-18) 11/26/17 07:24 Creatinine 1.0 mg/dL (0.7-1.3) 11/26/17 07:24 Creat Clearance w eGFR > 60 (>60) 11/26/17 07:24 Calcium 8.7 mg/dL (8.5-10.1) 11/26/17 07:24 Total Bilirubin 0.6 mg/dL (0.2-1.0) 11/26/17 07:24 AST 21 U/L (15-37) 11/26/17 07:24 ALT 23 U/L (12-78) 11/26/17 07:24 Alkaline Phosphatase 56 U/L (45-117) 11/26/17 07:24 Total Protein 6.9 g/dl (6.4-8.2) 11/26/17 07:24 Albumin 3.3 g/dl (3.4-5.0) L 11/26/17 07:[address] 11/24 - Impression: 1. Well demarcated infarction in the right gangliocapsular region as described above is new since MRI. This infarct is age indeterminate on CT. Please correlate clinically. If warranted, MRI may be obtained for further evaluation. 2. No acute intracranial hemorrhage , mass effects or hydrocephalus. 3. Chronic lacunar infarcts in bilateral thalami and left frontal subcortical white matter, unchanged from 11/06/2016. CXR 11/24 - Impression: Weak inspiration with resultant large heart and prominent central markings. 11/24 Carotid Doppler- No hemodynamically significant stenosis MRI/MRA 11/25/17: 1.1 X 0.7 cm L medial cerebellar CVA, acute. No AVM, aneurysm noted. Echo 11/26/17: Reduced EF 40-45% ASSESSMENT/PLAN: 52 yo M w/ pmh of HTN, CAD, CVA x3, DM who presented with acute onset N/V, vertigo and gait ataxia/weakness beginning morning of admission. Pt with 3 prior CVAs (8, 3 and 1 year ago per pt; no residual deficits), currently on ASA 325mg with reported compliance. CT head completed in ER and demonstrated R basal ganglia infarct that is new compared to imaging from October 2016. No acute changes noted but chronic lacunar infarcts noted in b/l thalami and L frontal subcortical white matter. MRI brain reviewed and acute CVA in L cerebellum noted Carotid dopplers completed and also reviewed and did not demonstrate HD significant stenosis. Ordered Meclezine 25mg PRN Echo reviewed, cardiology follow up Physcial therapy to be continued Monitor blood pressure, goal < 150/90 for now, goal < 130/80 as outpatient ASA decreased to 81mg and added Plavix 75mg for increased CVA prevention (combo of ASA 325 and Plavix 75 too much of bleed risk) Continue Crestor, goal LDL < 70 Fall precautions Medication compliance encouraged Rehab placement when able Patient in agreement after speaking with daughter
[2017-11-28] MEDS: NIACIN 500 MG TABLET PO SCH ×2 (11:17→21:58)
--- NOTE | 2017-11-28 12:26 | PN ---
Physical Exam: SUBJECTIVE: Patient seen and examined by me this AM - No N/V, dizziness. Gait improving. Denies f/c/n/v/d, cp, cough, ab pain, back pain, LE edema; pt ready for d/c to [facility] today at behest of family OBJECTIVE: Vital Signs Intake & Output 11/25/17 11/26/17 11/27/17 11/28/17 23:59 23:59 23:59 23:59 Intake Total 430 10 540 600 Output Total 100 Balance 430 -90 540 600 Weight 96.842 kg Period Temp Pulse Resp BP Sys/Dumont Pulse Ox Last 24 Hr 97 F-99 F 85-97 17-20 132-164/83-97 GENERAL: Middle aged man, NAD HEAD: Normal with no signs of trauma. EYES: Glasses. Pupils equal, round and reactive to light, extraocular movements intact, sclera anicteric, conjunctiva clear. No lid lag. EARS, NOSE, THROAT: Ears normal, nares patent, oropharynx clear without exudates. Moist mucous membranes. NECK: Normal range of motion, supple without lymphadenopathy, JVD, or masses. No bruit appreciated. LUNGS: Breath sounds equal, clear to auscultation bilaterally. No wheezes, and no crackles. No accessory muscle use. HEART: Regular rate and rhythm, normal S1 and S2 without murmur, rub or gallop. ABDOMEN: Soft, nontender, not distended, normoactive bowel sounds, no guarding, no rebound, no masses. No hepatomegaly or splenomegaly. MUSCULOSKELETAL: Normal range of motion at all joints. No bony deformities or tenderness. No CVA tenderness. UPPER EXTREMITIES: 2+ pulses, warm, well-perfused. No cyanosis. No clubbing. No peripheral edema. LOWER EXTREMITIES: Petechial rash on R anterior ankle. 2+ pulses, warm, well- perfused. No calf tenderness. No peripheral edema. NEUROLOGICAL: slight R tongue deviation. L arm dysmmetria. 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 5/5 strength BL in all other muscle groups. still with decreased sensation to light touch in stocking distribution to ankles BL. All other cranial nerves, muscle groups with preserved strength. Normal speech. PSYCHIATRIC: Cooperative. Good eye contact. Appropriate mood and affect. SKIN: Warm, dry, normal turgor, no rashes or lesions noted, normal capillary refill. Laboratory Results - last 24 hr CBC, BMP 11/26/17 07:24 11/26/17 07:24 11/27/17 11/27/17 11/27/17 07:40 17:17 20:12 POC Glucometer 229 189 Total T3 110.00 11/28/17 05:09 POC Glucometer 165 Total T3 Active Medications Generic Name Dose Route Start Last Admin Trade Name Freq PRN Reason Stop Dose Admin Aspirin 81 mg 11/26/17 10:00 11/28/17 11:17 Ecotrin - PO Not Given DAILY ANGEL[facility] Clopidogrel Bisulfate 75 mg 11/25/17 11:52 11/28/17 11:17 Plavix - PO Not Given DAILY ANG[facility] Heparin Sodium (Porcine) 5,000 unit 11/24/17 22:00 11/28/17 05:36 Heparin - SQ 5,000 unit TID ANGELITA Administration Insulin Aspart 1 vial 11/24/17 16:30 11/28/17 11:43 Novolog Vial Sliding Scale - SQ 8 units ACHS ANGELITA Administration Protocol Lisinopril 20 mg 11/26/17 10:00 11/28/17 11:18 Prinivil PO Not Given DAILY [facility] Meclizine HCl 25 mg 11/25/17 09:12 Antivert - PO TID PRN VERTIGO Metoclopramide HCl 10 mg 11/24/17 15:34 Reglan Injection - IVPUSH Q6H PRN NAUSEA AND/OR VOMITING Metoprolol Succinate 50 mg 11/26/17 09:11 11/28/17 11:28 Toprol Xl - PO Not Given DAILY [facility] Neomycin/Polymyxin/Bacitracin 1 applic 11/25/17 21:57 11/26/17 09:34 Neosporin Topical Ointment - TP 1 applic DAILY PRN Administration rash Niacin 500 mg 11/25/17 22:00 11/28/17 11:17 Niacin PO Not Given BID [facility] Rosuvastatin Calcium 20 mg 11/25/17 22:00 11/27/17 22:11 Crestor - PO 20 mg HS ANGELITA Administration No micro pending EKG 11/24 - rate 80, qtc 463, NAD, equivocal ST elevations in v2, prominent Twaves in v2 Head CT 11/24 - Impression: 1. Well demarcated infarction in the right gangliocapsular region as described above is new since MRI. This infarct is age indeterminate on CT. Please correlate clinically. If warranted, MRI may be obtained for further evaluation. 2. No acute intracranial hemorrhage , mass effects or hydrocephalus. 3. Chronic lacunar infarcts in bilateral thalami and left frontal subcortical white matter, unchanged from 11/06/2016. CXR 11/24 - Impression: Weak inspiration with resultant large heart and prominent central markings. Carotid doppler 11/24 - Intimal thickening at bifurcation, R>L. ECHO 11/25 - EF 40-45%, RV normal size, LA/RA normal, trace MR, trace TR, Abnormal diastolic relaxation MRI/MRA brain w/o contrast 11/25 - IMPRESSION: A 1.1 x 0.7 cm acute nonhemorrhagic infarct is seen within the left cerebellar hemisphere medially. In comparison to a previous MRI exam of 11/06/2016 there has been interval development of a chronic right basal ganglia infarct. Small chronic bilateral thalamic infarcts. Small chronic bilateral frontoparietal subcortical infarcts. - no stenosis noted on MRA ASSESSMENT/PLAN: 52 yo M w/ pmh of HTN, CAD, CVA x3, DM who presents with acute onset N/V, vertigo and gait ataxia/weakness beginning this AM. Now with MRI confirmed cerebellar stroke. Pt improving clinically today, only complaining of residual gait instability. Discharge order in, pt accepted to [facility]. Will leave this AM. #Confirmed L cerebellar stroke- no tpa given, as outside window; NIHSS 2; carotid doppler studies as noted above; ECHO as noted above; MRI as above - d/c to [facility] today - ASA, plavix daily - Crestor 20mg daily - f/u with neuro as outpt #Hyperkalemia - Resolved #HTN - BP <150/90 per neuro recs - Toprol XL 50mg daily - lisinopril 20mg dQ #DM2 - c/w home meds #CAD - pt reports 3-vessel dz -outpt cards f/u - ASA/plavix #HLD - Triglycerides in 425, cholesterol 214, LDL 126 - Crestor 20mg qD -c/w niacin, fish oil -discharge to [facility] with outpt neuro and cards f/u in one week. Plan discussed with attending, Dr. Cristina Trejo, PGY1 Visit type - Emergency Visit Emergency Visit: Yes ED Registration Date: 11/24/17 Care time: The patient presented to the Emergency Department on the above date and was hospitalized for further evaluation of their emergent condition. - New Patient This patient is new to me today: No - Critical Care Critical Care patient: No
--- NOTE | 2017-11-28 14:17 | PN ---
Progress Note, Physician Chief Complaint: Pt A&Ox3; no chest pain or dyspnea.Slight weakness in left sided extremities. History of Present Illness: 52 yo man with h/o CAD (recent coronary angiogram showed severe multivessel disease; he has been undecided on whether to undergo multiple stents or CABG), HTN, DM, CAD,CVA x 3 ( no residual deficits), Prostate Cancer, obesity, alcoholism, who p/w nausea and vomiting. Pt. reports multiple episodes of bilious, non bloody emesis beginning at 0400 AM. + Diaphoresis and numbness/ tingling in LE. Onset of emesis following episode of unremitting spinning sensation, worse with movement. Reports drinking 2 6 pack of beers. Reports chronically poor vision. . Denies F/C, CP, SOB, abdominal pain, diarrhea, constipation, urinary complaints, weakness, lightheadedness, sensory changes. No recent travels or change in diet. Pt has for years been drinking heavily several times a week; he last drank on , having 2 six-packs of beer. - Current Medication List Current Medications: Active Medications Aspirin (Ecotrin -) 81 mg PO DAILY [facility] Last Admin: 11/28/17 11:17 Dose: Not Given Clopidogrel Bisulfate (Plavix -) 75 mg PO DAILY [facility] Last Admin: 11/28/17 11:17 Dose: Not Given Heparin Sodium (Porcine) (Heparin -) 5,000 unit SQ TID [facility] Last Admin: 11/28/17 05:36 Dose: 5,000 unit Insulin Aspart (Novolog Vial Sliding Scale -) 1 vial SQ ACHS [facility] PRN Reason: Protocol Last Admin: 11/28/17 11:43 Dose: 8 units Lisinopril (Prinivil) 20 mg PO DAILY [facility] Last Admin: 11/28/17 11:18 Dose: Not Given Meclizine HCl (Antivert -) 25 mg PO TID PRN PRN Reason: VERTIGO Metoclopramide HCl (Reglan Injection -) 10 mg IVPUSH Q6H PRN PRN Reason: NAUSEA AND/OR VOMITING Metoprolol Succinate (Toprol Xl -) 50 mg PO DAILY [facility] Last Admin: 11/28/17 11:28 Dose: Not Given Neomycin/Polymyxin/Bacitracin (Neosporin Topical Ointment -) 1 applic TP DAILY PRN PRN Reason: rash Last Admin: 11/26/17 09:34 Dose: 1 applic Niacin (Niacin) 500 mg PO BID [facility] Last Admin: 11/28/17 11:17 Dose: Not Given Rosuvastatin Calcium (Crestor -) 20 mg PO HS [facility] Last Admin: 11/27/17 22:11 Dose: 20 mg - Objective Vital Signs: Vital Signs Temperature 98.0 F 11/28/17 10:00 Pulse Rate 96 H 11/28/17 10:00 Respiratory Rate 11/28/17 10:00 Blood Pressure 158/92 11/28/17 10:00 O2 Sat by Pulse Oximetry (%) 97 11/24/17 23:34 Constitutional: Yes: Calm Eyes: Yes: WNL HENT: Yes: WNL Neck: Yes: WNL Cardiovascular: Yes: WNL Respiratory: Yes: WNL Gastrointestinal: Yes: Soft ...Rectal Exam: Yes: Deferred Genitourinary: No: Anuria Breast(s): Yes: WNL Musculoskeletal: Yes: Muscle Weakness Extremities: Yes: WNL Edema: No Peripheral Pulses WNL: Yes Integumentary: Yes: WNL Neurological: Yes: Alert, Oriented, Weakness Psychiatric: Yes: WNL Labs: CBC, BMP 11/26/17 07:24 11/26/17 07:24 INR, PTT INR 0.98 (0.82-1.09) 11/25/17 07:25 - ....Imaging EKG: Image Reviewed (telemetry: no arrhythmias) Problem List - Problems (1) Acute on chronic systolic and diastolic heart failure, NYHA class 1 Assessment/Plan: On metoprolol ER (may increase from 50 mg to 100 mg daily, given HTN, HR , systolic LV dysfunction). On lisinopril 20 mg daily. F/u with Dr. Du, interventionalist, as outpatient regarding further coronary artery evaluation. Code(s): I50.43 - ACUTE ON CHRONIC COMBINED SYSTOLIC AND DIASTOLIC HRT FAIL (2) Diabetes Code(s): E11.9 - TYPE 2 DIABETES MELLITUS WITHOUT COMPLICATIONS (3) Cerebrovascular accident (CVA) Assessment/Plan: f/u with neurologist. Aggressive lowering of lipids with high-dose statin, proper heart-healthy food choices, portion control, and exercise. (Triglyceride-lowering agent is more problematic; would not use Niacin; both fish oil and fibrates have few studies to show decreased cardiac events or mortality from their use; non-pharmacologic methods mentioned above may be more beneficial). Code(s): I63.9 - CEREBRAL INFARCTION, UNSPECIFIED (4) Hyperlipidemia Code(s): E78.5 - HYPERLIPIDEMIA, UNSPECIFIED Qualifiers: Hyperlipidemia type: unspecified Qualified Code(s): E78.5 - Hyperlipidemia , unspecified (5) Hypertension Code(s): I10 - ESSENTIAL (PRIMARY) HYPERTENSION Qualifiers: Hypertension type: essential hypertension Qualified Code(s): I10 - Essential (primary) hypertension (6) Obesity Code(s): E66.9 - OBESITY, UNSPECIFIED (7) Coronary artery disease Assessment/Plan: known to have severe multivessel CAD by angiogram within the past few months. I discussed findings of CVA today with pt's interventionalist, Dr. Du, who believes stenting rather than CABG may be the preferred method of treating his CAD, several weeks after CVA has been treated. Continue ASA and clopidogrel. High-dose statin. Diet change, weight loss, and alcohol cessation were discussed in detail with pt and family. (Niacin, while potentially lowering triglycerides, has not been shown to be effective at lowering cardiac events or mortality; fibrate may be marginally better, though with increased side-effects when added to statin. Diet changes and exercise need to be emphasized; fish oil capsules might have value in this setting; Zetia would lower LDL when combined with statin , but still have less effect on triglycerides). Code(s): I25.10 - ATHSCL HEART DISEASE OF [place] CORONARY ARTERY W/O ANG PCTRS
[2017-11-28] MEDS: ROSUVASTATIN CA 20 MG TABLET (FP) PO SCH (21:58)
--- NOTE | 2017-11-29 05:54 | PN ---
Physical Exam: SUBJECTIVE: Patient seen and examined by me this AM - Awaiting transportation to [facility]. No complaints; denies dizziness/vertigo, N/V; States his gait is improving, endorsing improving L leg strength; denies all other symptoms. OBJECTIVE: Vital Signs Intake & Output 11/26/17 11/27/17 11/28/17 11/29/17 23:59 23:59 23:59 23:59 Intake Total 10 540 1100 Output Total 100 Balance -90 540 1100 Period Temp Pulse Resp BP Sys/Dumont Pulse Ox Last 24 Hr 97.9 F-99.1 F 83-96 16-20 126-158/73-99 98 GENERAL: Middle aged man, NAD HEAD: Normal with no signs of trauma. EYES: Glasses. Pupils equal, round and reactive to light, extraocular movements intact, sclera anicteric, conjunctiva clear. No lid lag. EARS, NOSE, THROAT: Ears normal, nares patent, oropharynx clear without exudates. Moist mucous membranes. NECK: Normal range of motion, supple without lymphadenopathy, JVD, or masses. No bruit appreciated. LUNGS: Breath sounds equal, clear to auscultation bilaterally. No wheezes, and no crackles. No accessory muscle use. HEART: Regular rate and rhythm, normal S1 and S2 without murmur, rub or gallop. ABDOMEN: Soft, nontender, not distended, normoactive bowel sounds, no guarding, no rebound, no masses. No hepatomegaly or splenomegaly. MUSCULOSKELETAL: Normal range of motion at all joints. No bony deformities or tenderness. No CVA tenderness. EXTREMITIES: 2+ pulses, warm, well-perfused. No cyanosis. No clubbing. No peripheral edema. L arm dysmmetria. 5/5 strength BL in all muscle groups. still with decreased sensation to light touch in stocking distribution to ankles BL. All other cranial nerves, muscle groups with preserved strength. Normal speech. PSYCHIATRIC: Cooperative. Good eye contact. Appropriate mood and affect. SKIN: Warm, dry, normal turgor, no rashes or lesions noted, normal capillary refill. Laboratory Results - last 24 hr CBC, BMP 11/26/17 07:24 11/26/17 07:24 11/27/17 11/28/17 11/28/17 07:40 11:35 17:03 POC Glucometer 322 167 Total T3 110.00 11/28/17 20:53 POC Glucometer 239 Total T3 Active Medications Generic Name Dose Route Start Last Admin Trade Name Freq PRN Reason Stop Dose Admin Aspirin 81 mg 11/26/17 10:00 11/28/17 11:17 Ecotrin - PO Not Given DAILY [facility] Clopidogrel Bisulfate 75 mg 11/25/17 11:52 11/28/17 11:17 Plavix - PO Not Given DAILY ANG[facility]ITA Heparin Sodium (Porcine) 5,000 unit 11/24/17 22:00 11/28/17 21:55 Heparin - SQ 5,000 unit TID ANGELITA Administration Insulin Aspart 1 vial 11/24/17 16:30 11/28/17 21:56 Novolog Vial Sliding Scale - SQ 4 units ACHS ANGELITA Administration Protocol Lisinopril 20 mg 11/26/17 10:00 11/28/17 11:18 Prinivil PO Not Given DAILY [facility] Meclizine HCl 25 mg 11/25/17 09:12 Antivert - PO TID PRN VERTIGO Metoclopramide HCl 10 mg 11/24/17 15:34 Reglan Injection - IVPUSH Q6H PRN NAUSEA AND/OR VOMITING Metoprolol Succinate 50 mg 11/26/17 09:11 11/28/17 11:28 Toprol Xl - PO Not Given DAILY [facility] Neomycin/Polymyxin/Bacitracin 1 applic 11/25/17 21:57 11/26/17 09:34 Neosporin Topical Ointment - TP 1 applic DAILY PRN Administration rash Niacin 500 mg 11/25/17 22:00 11/28/17 21:58 Niacin PO Not Given BID [facility] Rosuvastatin Calcium 20 mg 11/25/17 22:00 11/28/17 21:58 Crestor - PO 20 mg HS ANGELITA Administration No micro pending EKG 11/24 - rate 80, qtc 463, NAD, equivocal ST elevations in v2, prominent Twaves in v2 Head CT 11/24 - Impression: 1. Well demarcated infarction in the right gangliocapsular region as described above is new since MRI. This infarct is age indeterminate on CT. Please correlate clinically. If warranted, MRI may be obtained for further evaluation. 2. No acute intracranial hemorrhage , mass effects or hydrocephalus. 3. Chronic lacunar infarcts in bilateral thalami and left frontal subcortical white matter, unchanged from 11/06/2016. CXR 11/24 - Impression: Weak inspiration with resultant large heart and prominent central markings. Carotid doppler 11/24 - Intimal thickening at bifurcation, R>L. ECHO 11/25 - EF 40-45%, RV normal size, LA/RA normal, trace MR, trace TR, Abnormal diastolic relaxation MRI/MRA brain w/o contrast 11/25 - IMPRESSION: A 1.1 x 0.7 cm acute nonhemorrhagic infarct is seen within the left cerebellar hemisphere medially. In comparison to a previous MRI exam of 11/06/2016 there has been interval development of a chronic right basal ganglia infarct. Small chronic bilateral thalamic infarcts. Small chronic bilateral frontoparietal subcortical infarcts. - no stenosis noted on MRA ASSESSMENT/PLAN: 52 yo M w/ pmh of HTN, CAD, CVA x3, DM who presents with acute onset N/V, vertigo and gait ataxia/weakness beginning this AM. Now with MRI confirmed cerebellar stroke. Pt with only mild L leg weakness, symptoms continue to improve. Discharge order in, pt accepted to [facility], awaiting ambulette for transportation. Will leave today. #Confirmed L cerebellar stroke- no tpa given, as outside window; NIHSS 2; carotid doppler studies as noted above; ECHO as noted above; MRI as above - d/c to [facility] today; delayed yesterday due to transportation/insurance approval - ASA, plavix daily - Crestor 20mg daily - f/u with neuro as outpt #Hyperkalemia - Resolved #HTN - BP <150/90 per neuro recs - Toprol XL 50mg daily - lisinopril 20mg dQ #DM2 - c/w home meds #CAD - pt reports 3-vessel dz -outpt cards f/u - ASA/plavix #HLD - Triglycerides in 425, cholesterol 214, LDL 126 - Crestor 20mg qD -c/w fish oil - d/c niacin as no mortality benefit - may require fibrates as outpt -discharge to [facility] with outpt neuro and cards f/u in one week. Plan discussed with attending, Dr. Austin Trejo, PGY1 Visit type - Emergency Visit Emergency Visit: Yes ED Registration Date: 11/24/17 Care time: The patient presented to the Emergency Department on the above date and was hospitalized for further evaluation of their emergent condition. - New Patient This patient is new to me today: No - Critical Care Critical Care patient: No
[2017-11-29] MEDS: HEPARIN NA (PORCINE) 5,000 UNITS/ML 1ML VIAL SQ SCH ×2 (06:43→14:20)
[2017-11-29] MEDS: INSULIN SLIDING SCALE (NOVOLOG) 1 VIAL SQ SCH ×2 (06:43→11:18)
[2017-11-29] MEDS ORDERED: ALPRAZolam 0.25 MG TABLET PO PRN (08:16)
[2017-11-29] MEDS: LISINOPRIL 20 MG TABLET (FP) PO SCH (09:00)
[2017-11-29] MEDS: ASPIRIN COATED 81 MG TABLET.EC PO SCH (09:00)
[2017-11-29] MEDS: CLOPIDOGREL BISULFATE 75 MG TABLET (FP) PO SCH (09:00)
--- NOTE | 2017-11-29 09:39 | PN ---
Progress Note (short form) - Note Progress Note: Neurology HISTORY OF PRESENT ILLNESS: 52 yo M w/ pmh of HTN, CAD, CVA x3, DM who presented with acute onset N/V, vertigo and gait ataxia/weakness beginning morning of admission. Pt with 3 prior CVAs (8, 3 and 1 year ago per pt; no residual deficits), currently on ASA 325mg with reported compliance. He lives at home independent in all ADLs. Reportedly, brothers visited last night and he ingested two 6-packs of beer. He denied any symptoms at the time. He stated he awoke at 4AM and felt thirsty, drank a glass of water and immediately became nauseous. He stated he tried to walk to bathroom, however his legs felt too weak and unsteady fell back into bed. Pt also endorsed vertigo and lightheadness at the time, worsened by movement. Reportedly, every time he attempted to stand, he experienced transient vision loss. CT head completed in ER and demonstrated R basal ganglia infarct that is new compared to imaging from October 2016. No acute changes noted but chronic lacunar infarcts noted in b/l thalami and L frontal subcortical white matter. Not a TPA candidate as he was outside window. Carotid dopplers completed and also reviewed and did not demonstrate HD significant stenosis. He received a dose of Meclezine in the ER. Completed MRI brain which I reviewed and showed acute L medial cerebellar hemisphere acute infarct. Discussed this with patient and with primary team. Size and location suspicious for hypertensive etiology. Of note, MRA completed and did not show vascular malformations or aneurysms. Antiplatelet regiment has been adjusted to dual therapy with ASA 81 and plavix 75, patient aware and in agreement. Plan is for SNF for rehab of ongoing gait instability from CVA, patient in agreement. Primary team aware and in agreement. No new events overnight. Echo completed and reviewed, reduced EF noted (40-45%). Patient willing to go to rehab and correctional counselor/case manager working on placement. Active Medications Alprazolam (Xanax -) 0.5 mg PO Q8H PRN PRN Reason: ANXIETY Aspirin (Ecotrin -) 81 mg PO DAILY [facility] Last Admin: 11/29/17 09:00 Dose: 81 mg Clopidogrel Bisulfate (Plavix -) 75 mg PO DAILY [facility] Last Admin: 11/29/17 09:00 Dose: 75 mg Heparin Sodium (Porcine) (Heparin -) 5,000 unit SQ TID [facility] Last Admin: 11/29/17 06:43 Dose: 5,000 unit Insulin Aspart (Novolog Vial Sliding Scale -) 1 vial SQ ACHS [facility] PRN Reason: Protocol Last Admin: 11/29/17 06:43 Dose: 2 units Lisinopril (Prinivil) 20 mg PO DAILY [facility] Last Admin: 11/29/17 09:00 Dose: 20 mg Meclizine HCl (Antivert -) 25 mg PO TID PRN PRN Reason: VERTIGO Metoclopramide HCl (Reglan Injection -) 10 mg IVPUSH Q6H PRN PRN Reason: NAUSEA AND/OR VOMITING Metoprolol Succinate (Toprol Xl -) 50 mg PO DAILY [facility] Last Admin: 11/29/17 09:00 Dose: 50 mg Neomycin/Polymyxin/Bacitracin (Neosporin Topical Ointment -) 1 applic TP DAILY PRN PRN Reason: rash Last Admin: 11/26/17 09:34 Dose: 1 applic Rosuvastatin Calcium (Crestor -) 20 mg PO HS [facility] Last Admin: 11/28/17 21:58 Dose: 20 mg PHYSICAL EXAMINATION Vital Signs Period Temp Pulse Resp BP Sys/Dumont Pulse Ox Last 24 Hr 97.9 F-99.1 F 80-96 16-20 126-158/73-99 98 GENERAL: Middle aged man, NAD, A&Ox3 HEAD: Normal with no signs of trauma. EYES: Wear glasses. Pupils equal, round and reactive to light, extraocular movements intact, sclera anicteric, conjunctiva clear. No lid lag. EARS, NOSE, THROAT: Ears normal, nares patent, oropharynx clear without exudates. Moist mucous membranes. NECK: Normal range of motion, supple without lymphadenopathy, JVD, or masses. No bruit appreciated. LUNGS: Breath sounds equal, clear to auscultation bilaterally. No wheezes, and no crackles. No accessory muscle use. HEART: Regular rate and rhythm, normal S1 and S2 without murmur, rub or gallop. ABDOMEN: Soft, nontender, not distended, normoactive bowel sounds, no guarding, no rebound, no masses. No hepatomegaly or splenomegaly. MUSCULOSKELETAL: Normal range of motion at all joints. No bony deformities or tenderness. No CVA tenderness. UPPER EXTREMITIES: 2+ pulses, warm, well-perfused. No cyanosis. No clubbing. No peripheral edema. LOWER EXTREMITIES: Petechial rash on R anterior ankle. 2+ pulses, warm, well- perfused. No calf tenderness. No peripheral edema. NEUROLOGICAL: No slurred speech, no facial droop, L side intact, R side 5-/5, slight decreased sensation to light touch in stocking distribution to ankles BL. dysmetria on finger to nose noted PSYCHIATRIC: Cooperative. Good eye contact. Appropriate mood and affect. SKIN: Warm, dry, normal turgor, no rashes or lesions noted, normal capillary refill. CBCD WBC 6.9 K/mm3 (4.0-10.0) 11/26/17 07:24 RBC 4.38 M/mm3 (4.00-5.60) 11/26/17 07:24 Hgb 13.3 GM/dL (11.7-16.9) 11/26/17 07:24 Hct 38.5 % (35.4-49) 11/26/17 07:24 MCV 87.9 fl (80-96) 11/26/17 07:24 MCHC 34.6 g/dl (32.0-35.9) 11/26/17 07:24 RDW 14.1 % (11.9-15.9) 11/26/17 07:24 Plt Count 203 K/MM3 (134-434) 11/26/17 07:24 MPV 8.3 fl (7.5-11.1) 11/26/17 07:24 CMP Sodium 139 mmol/L (136-145) 11/26/17 07:24 Potassium 3.9 mmol/L (3.5-5.1) 11/26/17 07:24 Chloride 102 mmol/L (98-107) 11/26/17 07:24 Carbon Dioxide 27 mmol/L (21-32) 11/26/17 07:24 Anion Gap 10 (8-16) 11/26/17 07:24 BUN 11 mg/dL (7-18) 11/26/17 07:24 Creatinine 1.0 mg/dL (0.7-1.3) 11/26/17 07:24 Creat Clearance w eGFR > 60 (>60) 11/26/17 07:24 Calcium 8.7 mg/dL (8.5-10.1) 11/26/17 07:24 Total Bilirubin 0.6 mg/dL (0.2-1.0) 11/26/17 07:24 AST 21 U/L (15-37) 11/26/17 07:24 ALT 23 U/L (12-78) 11/26/17 07:24 Alkaline Phosphatase 56 U/L (45-117) 11/26/17 07:24 Total Protein 6.9 g/dl (6.4-8.2) 11/26/17 07:24 Albumin 3.3 g/dl (3.4-5.0) L 11/26/17 07:[address] 11/24 - Impression: 1. Well demarcated infarction in the right gangliocapsular region as described above is new since MRI. This infarct is age indeterminate on CT. Please correlate clinically. If warranted, MRI may be obtained for further evaluation. 2. No acute intracranial hemorrhage , mass effects or hydrocephalus. 3. Chronic lacunar infarcts in bilateral thalami and left frontal subcortical white matter, unchanged from 11/06/2016. CXR 11/24 - Impression: Weak inspiration with resultant large heart and prominent central markings. 11/24 Carotid Doppler- No hemodynamically significant stenosis MRI/MRA 11/25/17: 1.1 X 0.7 cm L medial cerebellar CVA, acute. No AVM, aneurysm noted. Echo 11/26/17: Reduced EF 40-45% ASSESSMENT/PLAN: 52 yo M w/ pmh of HTN, CAD, CVA x3, DM who presented with acute onset N/V, vertigo and gait ataxia/weakness beginning morning of admission. Pt with 3 prior CVAs (8, 3 and 1 year ago per pt; no residual deficits), currently on ASA 325mg with reported compliance. CT head completed in ER and demonstrated R basal ganglia infarct that is new compared to imaging from October 2016. No acute changes noted but chronic lacunar infarcts noted in b/l thalami and L frontal subcortical white matter. MRI brain reviewed and acute CVA in L cerebellum noted Carotid dopplers completed and also reviewed and did not demonstrate HD significant stenosis. Ordered Meclezine 25mg PRN Echo reviewed, cardiology follow up Physcial therapy to be continued Monitor blood pressure, goal < 130/80 as outpatient ASA decreased to 81mg and added Plavix 75mg for increased CVA prevention (combo of ASA 325 and Plavix 75 too much of bleed risk) Continue Crestor, goal LDL < 70 Fall precautions Medication compliance encouraged Rehab placement when able Patient in agreement for rehab Encouraged active participation in rehab
--- NOTE | 2017-11-29 09:56 | PN ---
Progress Note, Physician History of Present Illness: 52yo M with PMH CVA x3 (2011/2015/2016 with residual L weakness and blindness with has resolved), HTn, DM, CAD s/p stents, prostate ca presented to the ER due to dizzyness when he awoke this AM. assoc with multiple episodes of non- bloody emesis and diaphoresis. assoc with numbness/tingling in his lower extremities causing ataxic gait. reports he drank a 6 pack last night which is atypical for him. Had cardiac cath a year ago and was told he had 3 blockages but no stents were placed. was never placed on an additional medication for stroke prevention from what he recalls and was never told to stop a medication due to bleeding. denies CP, SOB, fever, chills, blurred vision, slurred speech, PMH Severe multivessel CAD; pt deciding on CABG vs PCI CVAx3 HTN DM hyperlipidemia overweight - Current Medication List Current Medications: Active Medications Alprazolam (Xanax -) 0.5 mg PO Q8H PRN PRN Reason: ANXIETY Aspirin (Ecotrin -) 81 mg PO DAILY [facility] Last Admin: 11/29/17 09:00 Dose: 81 mg Clopidogrel Bisulfate (Plavix -) 75 mg PO DAILY [facility] Last Admin: 11/29/17 09:00 Dose: 75 mg Heparin Sodium (Porcine) (Heparin -) 5,000 unit SQ TID [facility] Last Admin: 11/29/17 06:43 Dose: 5,000 unit Insulin Aspart (Novolog Vial Sliding Scale -) 1 vial SQ ACHS [facility] PRN Reason: Protocol Last Admin: 11/29/17 06:43 Dose: 2 units Lisinopril (Prinivil) 20 mg PO DAILY [facility] Last Admin: 11/29/17 09:00 Dose: 20 mg Meclizine HCl (Antivert -) 25 mg PO TID PRN PRN Reason: VERTIGO Metoclopramide HCl (Reglan Injection -) 10 mg IVPUSH Q6H PRN PRN Reason: NAUSEA AND/OR VOMITING Metoprolol Succinate (Toprol Xl -) 50 mg PO DAILY [facility] Last Admin: 11/29/17 09:00 Dose: 50 mg Neomycin/Polymyxin/Bacitracin (Neosporin Topical Ointment -) 1 applic TP DAILY PRN PRN Reason: rash Last Admin: 11/26/17 09:34 Dose: 1 applic Rosuvastatin Calcium (Crestor -) 20 mg PO HS [facility] Last Admin: 11/28/17 21:58 Dose: 20 mg - Objective Vital Signs: Vital Signs Temperature 98.5 F 11/29/17 06:00 Pulse Rate 80 11/29/17 06:00 Respiratory Rate 20 11/29/17 06:00 Blood Pressure 137/80 11/29/17 06:00 O2 Sat by Pulse Oximetry (%) 98 11/28/17 21:00 Eyes: Yes: WNL, Conjunctiva Clear, EOM Intact HENT: Yes: WNL, Atraumatic, Normocephalic Neck: Yes: WNL, Supple, Trachea Midline Cardiovascular: Yes: WNL, Regular Rate and Rhythm Respiratory: Yes: WNL, Regular, CTA Bilaterally Gastrointestinal: Yes: WNL, Normal Bowel Sounds Genitourinary: Yes: WNL Musculoskeletal: Yes: WNL Extremities: Yes: WNL Edema: No Integumentary: Yes: WNL Neurological: Yes: Alert, Oriented, Weakness ...Motor Strength: WNL Psychiatric: Yes: WNL Labs: CBC, BMP 11/26/17 07:24 11/26/17 07:24 INR, PTT INR 0.98 (0.82-1.09) 11/25/17 07:25 Problem List - Problems (1) Cerebrovascular accident (CVA) Code(s): I63.9 - CEREBRAL INFARCTION, UNSPECIFIED (2) Vertigo Code(s): R42 - DIZZINESS AND GIDDINESS (3) Asthma exacerbation Code(s): J45.901 - UNSPECIFIED ASTHMA WITH (ACUTE) EXACERBATION (4) Blurred vision Code(s): H53.8 - OTHER VISUAL DISTURBANCES (5) CHF (congestive heart failure) Code(s): I50.9 - HEART FAILURE, UNSPECIFIED (6) Cervical strain, acute Code(s): S16.1XXA - STRAIN OF MUSCLE, FASCIA AND TENDON AT NECK LEVEL, INIT Qualifiers: Encounter type: initial encounter Qualified Code(s): S16.1XXA - Strain of muscle, fascia and tendon at neck level, initial encounter (7) Chronic shoulder pain Code(s): M25.519 - PAIN IN UNSPECIFIED SHOULDER; G89.29 - OTHER CHRONIC PAIN Qualifiers: Laterality: right Qualified Code(s): M25.511 - Pain in right shoulder (8) DVT prophylaxis Code(s): FLX8362 - (9) Diabetes mellitus Code(s): E11.9 - TYPE 2 DIABETES MELLITUS WITHOUT COMPLICATIONS (10) Ashley cardiac risk >20% in next 10 years Code(s): Z91.89 - OTH PERSONAL RISK FACTORS, NOT ELSEWHERE CLASSIFIED (11) Hyperglycemia Code(s): R73.9 - HYPERGLYCEMIA, UNSPECIFIED (12) Hyperlipidemia Code(s): E78.5 - HYPERLIPIDEMIA, UNSPECIFIED Qualifiers: Hyperlipidemia type: unspecified Qualified Code(s): E78.5 - Hyperlipidemia , unspecified (13) Hypertension Code(s): I10 - ESSENTIAL (PRIMARY) HYPERTENSION Qualifiers: Hypertension type: essential hypertension Qualified Code(s): I10 - Essential (primary) hypertension (14) Musculoskeletal pain Code(s): M79.1 - MYALGIA (15) Obesity Code(s): E66.9 - OBESITY, UNSPECIFIED (16) Sprain of foot, right Code(s): S93.601A - UNSPECIFIED SPRAIN OF RIGHT FOOT, INITIAL ENCOUNTER Qualifiers: Encounter type: initial encounter Qualified Code(s): S93.601A - Unspecified sprain of right foot, initial encounter (17) Sprain of right ankle Code(s): S93.401A - SPRAIN OF UNSPECIFIED LIGAMENT OF RIGHT ANKLE, INIT ENCNTR Qualifiers: Encounter type: initial encounter Involved ligament of ankle: unspecified ligament Qualified Code(s): S93.401A - Sprain of unspecified ligament of right ankle, initial encounter (18) Visual field cut Code(s): H53.40 - UNSPECIFIED VISUAL FIELD DEFECTS Assessment/Plan - Problems (1) Acute on chronic systolic and diastolic heart failure, NYHA class 1 Assessment/Plan: On metoprolol ER (may increase from 50 mg to 100 mg daily, given HTN, HR , systolic LV dysfunction). On lisinopril 20 mg daily. F/u with Dr. Du, interventionalist, as outpatient regarding further coronary artery evaluation. Code(s): I50.43 - ACUTE ON CHRONIC COMBINED SYSTOLIC AND DIASTOLIC HRT FAIL (2) Diabetes Code(s): E11.9 - TYPE 2 DIABETES MELLITUS WITHOUT COMPLICATIONS (3) Cerebrovascular accident (CVA) Assessment/Plan: f/u with neurologist. Aggressive lowering of lipids with high-dose statin, proper heart-healthy food choices, portion control, and exercise. (Triglyceride-lowering agent is more problematic; would not use Niacin; both fish oil and fibrates have few studies to show decreased cardiac events or mortality from their use; non-pharmacologic methods mentioned above may be more beneficial). Code(s): I63.9 - CEREBRAL INFARCTION, UNSPECIFIED (4) Hyperlipidemia Code(s): E78.5 - HYPERLIPIDEMIA, UNSPECIFIED Qualifiers: Hyperlipidemia type: unspecified Qualified Code(s): E78.5 - Hyperlipidemia , unspecified (5) Hypertension Code(s): I10 - ESSENTIAL (PRIMARY) HYPERTENSION Qualifiers: Hypertension type: essential hypertension Qualified Code(s): I10 - Essential (primary) hypertension (6) Obesity Code(s): E66.9 - OBESITY, UNSPECIFIED (7) Coronary artery disease Assessment/Plan: known to have severe multivessel CAD by angiogram within the past few months. I discussed findings of CVA today with pt's interventionalist, Dr. Du, who believes stenting rather than CABG may be the preferred method of treating his CAD, several weeks after CVA has been treated. Continue ASA and clopidogrel. High-dose statin. Diet change, weight loss, and alcohol cessation were discussed in detail with pt and family. (Niacin, while potentially lowering triglycerides, has not been shown to be effective at lowering cardiac events or mortality; fibrate may be marginally better, though with increased side-effects when added to statin. Diet changes and exercise need to be emphasized; fish oil capsules might have value in this setting; Zetia would lower LDL when combined with statin , but still have less effect on triglycerides). Code(s): I25.10 - ATHSCL HEART DISEASE OF [place] CORONARY ARTERY W/O ANG PCTRS
--- NOTE | 2017-11-29 13:06 | PN ---
Teaching Attending Note Name of Resident: Alvarez Trejo ATTENDING PHYSICIAN STATEMENT I saw and evaluated the patient. I reviewed the resident's note and discussed the case with the resident. I agree with the resident's findings and plan as documented with exceptions below. SUBJECTIVE: Patient seen and examined, no complaints, slowly improving. OBJECTIVE: Vital Signs Period Temp Pulse Resp BP Sys/Dumont Pulse Ox Last 24 Hr 97.9 F-99.1 F 80-89 16-20 126-156/73-99 98-98 Intake & Output 11/26/17 11/27/17 11/28/17 11/29/17 23:59 23:59 23:59 23:59 Intake Total 10 540 1100 120 Output Total 100 Balance -90 540 1100 120 General: sitting in chair, no acute distress ASSESSMENT AND PLAN: 52yo M with PMH CVA x3 (/2016 with residual L weakness and blindness with has resolved), HTN, DM, CAD s/p stents, multivessel CAD, prostate ca presented to the ER due to dizziness found with ACute left cerebellar CVA -Acute left Cerebellar CVA, likely hypertensive -Old basal ganglia infarct -Multivessel CAD s/p PCI, further plan for CABG vs PCI -Elevated Troponin, suspect demand type II NSTEMi from above -ETOH binge prior to admission -HTN -DM -HLD -obesity Plan Neurology/cardiology input appreciated. MRA noted. 2D echo noted. Continue ASA/plavix/statin. BP improved, toprol XL increased, home BP monitoring and outpatient follow up. Continue lisinopril ISS, diabetic diet. resume metformin. patient now wants rehab, awaiting bed to [facility], d/c when available. Plan for home BP monitoring, need for thyroid function follow up and instructions discussed in detail again with patient and all questions answered.
[2017-11-29 14:25] VITALS: BP 144/82; PULSE 88; TEMP 98.3
== END 2017-11-29 18:16 | DRG 45 ==
LOC: JER 10:42 → JERBED 15:27 → OBSVTOIN 16:58 → J4S 11-25 03:22
PROVIDERS: ADMIT Internal Medicine; ATTEND Hospitalist
DX: I63.9 Cerebral infarction, unspecified (principal); I50.43 Acute on chronic combined systolic (congestive) and diastolic (congestive) heart failure; I21.A1 Myocardial infarction type 2; E11.40 Type 2 diabetes mellitus with diabetic neuropathy, unspecified; E87.5 Hyperkalemia; I69.354 Hemiplegia and hemiparesis following cerebral infarction affecting left non-dominant side; I11.0 Hypertensive heart disease with heart failure; E87.1 Hypo-osmolality and hyponatremia; R42 Dizziness and giddiness; R29.702 NIHSS score 2; I25.10 Atherosclerotic heart disease of native coronary artery without angina pectoris; C61 Malignant neoplasm of prostate; Z79.84 Long term (current) use of oral hypoglycemic drugs; E78.5 Hyperlipidemia, unspecified; J45.909 Unspecified asthma, uncomplicated; M25.511 Pain in right shoulder; E66.9 Obesity, unspecified; F10.10 Alcohol abuse, uncomplicated; Z68.32 Body mass index [BMI] 32.0-32.9, adult
CPT/HCPCS: 36415; 70450-TC; 70544-TC; 70551-TC; 71045-TC-FY; 74230-TC-FY; 80053; 80061; 82550; 82553; 82962; 83690; 83721; 83735; 84100; 84439; 84443; 84480; 84484; 85025; 85610; 85730; 90688; 90732; 92611-GN; 93005; 93010; 93306-TC; 93880-TC; 97116-GP; 97161-GP; 99285-25; G0008; G0009; G0378; J1644; J7030

== ENCOUNTER 2017-12-11 11:43 | Emergency (ER) | payer OTHER ==
[2017-12-11 12:18] VITALS: BP 153/94; PULSE 86; TEMP 97.7; BMI 30.2
--- NOTE | 2017-12-11 13:40 | PDOC ---
History of Present Illness - General Chief Complaint: Pain, Acute Stated Complaint: LT SWOLLEN ANKLE Time Seen by Provider: 12/11/17 12:57 History Source: Patient Exam Limitations: No Limitations - History of Present Illness Initial Comments: 12/11/17 13:39 Patient is a 52 yo M with h/o HTN, DM, CAD,CVA x 4 ASHD, Prostate Ca. presents with right lateral ankle pain. Patient reports he has a history of multiple strokes, was recently in rehabilitation facility, 2 weeks ago he twisted his right ankle in rehabilitation, they told him that he injured himself, they applied cream and massaged area however did not sent for x-ray. He noticed increased pain with swelling. Unable to bear weight. Allergies: No known medication allergies Medications: See medication list] Family History: Non-contributory Severity: Yes: moderate Lower Extremity Pain Location: right: ankle Lower Ext. Injury Location - Specific Injury Location Ankle: right pain Extremity Pain Location - Extremity Pain Location Extremity Pain Locations: right: ankle Past History - Past Medical History Allergies/Adverse Reactions: Allergies Allergy/AdvReac Type Severity Reaction Status Date / Time almond oil Allergy Intermediate Swelling Verified 12/11/17 12:12 blackwood flavor Allergy Intermediate Swelling Verified 12/11/17 12:12 shellfish derived Allergy Intermediate Swelling Verified 12/11/17 12:12 Home Medications: Ambulatory Orders Metformin HCl [Glucophage] 500 mg PO DAILY 08/19/15 Lisinopril [Prinivil] 20 mg PO DAILY 11/04/16 Nitroglycerin [Nitrostat] 0.4 mg SL PRN 11/24/17 Aspirin Coated [Ecotrin -] 81 mg PO DAILY #30 tablet.ec 11/27/17 Clopidogrel Bisulfate [Plavix -] 75 mg PO DAILY #30 tablet 11/27/17 Metoprolol Succinate [Toprol XL -] 50 mg PO DAILY #60 tab.sr.24h 11/27/17 Niacin [Niacin -] 500 mg PO BID #60 tablet 11/27/17 [place]-3 Acid Ethyl Esters [Lovaza -] 2 gm PO BID #60 cap 11/27/17 Rosuvastatin [Crestor -] 20 mg PO HS #30 tablet 11/27/17 Insulin Sliding Scale [Novolog Vial Sliding Scale -] 1 vial SQ ACHS units 11/28 Cancer: Yes (prostate) Cardiac Disorders: Yes (CAD) CVA: Yes (2 strokes w/ vision loss) COPD: No DVT: No Diabetes: Yes HTN: Yes Hypercholesterolemia: Yes - Surgical History Orthopedic Surgery: Yes (left knee surgery) - Immunization History Immunization Up to Date: Yes - Suicide/Smoking/Psychosocial Hx Smoking Status: No Smoking History: Never smoked Have you smoked in the past 12 months: No Number of Cigarettes Smoked Daily: 0 Information on smoking cessation initiated: No Hx Alcohol Use: No Drug/Substance Use Hx: No Substance Use Type: None Hx Substance Use Treatment: No Review of Systems - Review of Systems Constitutional: No: Symptoms Reported HEENTM: No: Symptoms Reported Respiratory: No: Symptoms reported Cardiac (ROS): No: Symptoms Reported ABD/GI: No: Symptoms Reported : No: Symptoms Reported Musculoskeletal: Yes: Joint Pain, Joint Swelling. No: Muscle Pain, Muscle Weakness, Neck Pain, Joint Stiffness Integumentary: No: Symptoms Reported, Bruising, Erythema Neurological: No: Symptoms reported All Other Systems: Reviewed and Negative *Physical Exam - Vital Signs Last Vital Signs Temp Pulse Resp BP Pulse Ox 97.7 F 86 18 153/94 98 12/11/17 12:13 12/11/17 12:13 12/11/17 12:13 12/11/17 12:13 12/11/17 12:13 - Physical Exam General Appearance: Yes: Appropriately Dressed. No: Apparent Distress Neck: negative: Tender lateral, Tender midline Respiratory/Chest: positive: Lungs Clear, Normal Breath Sounds. negative: Respiratory Distress, Accessory Muscle Use Cardiovascular: positive: Regular Rhythm, Regular Rate Musculoskeletal: positive: Decreased Range of Motion Extremity: positive: Swelling. negative: Erythema, Inflammation Integumentary: positive: Normal Color, Dry, Swelling. negative: Ecchymosis, Bruising Neurologic: positive: Alert, Normal Mood/Affect ED Treatment Course - RADIOLOGY Radiology Studies Ordered: Category Date Time Status ANKLE & FOOT-RIGHT* [RAD] Stat Radiology 12/11/17 13:13 Taken Medical Decision Making - Medical Decision Making 12/11/17 13:55 A/P: Patient with right ankle injury, sent x-ray to rule out acute fracture 12/11/17 18:06 X-rays negative for acute fracture dislocation, I have given patient one Percocet while in emergency department DC on anti-inflammatories. Patel wrap and Aircast placed on, patient will use his walker to ambulate for safety, follow- up with orthopedics to rule out ligamental injury . *DC/Admit/Observation/Transfer Diagnosis at time of Disposition: Ankle sprain Qualifiers: Encounter type: initial encounter Involved ligament of ankle: other ligament Laterality: right Qualified Code(s): S93.491A - Sprain of other ligament of right ankle, initial encounter - Discharge Dispostion Disposition: HOME Condition at time of disposition: Stable Admit: No - Referrals Referrals: Xuan Carlson [Primary Care Provider] - - Patient Instructions Printed Discharge Instructions: DI for Ankle Sprain Additional Instructions: 1. Please return to the emergency department with any redness, swelling, increased pain, or any other concerns. 2. Keep splint on. 3. Please follow up in the office of Dr. Rosenthal within a week, maybe ligamental injury needs to be evaluated 4. No weightbearing when possible 5. Ice and elevate when at rest. 6. Motrin for pain - Post Discharge Activity
== END 2017-12-11 15:19 | disposition home or self-care (01) ==
LOC: JERFT 11:43
PROC: 2W3QX1Z Immobilization of Right Lower Leg using Splint (ICD-10-PCS; principal; 2017-12-11)
DX: S93.491A Sprain of other ligament of right ankle, initial encounter (principal); X50.1XXA Overexertion from prolonged static or awkward postures, initial encounter; Y93.89 Activity, other specified; Y92.538 Other ambulatory health services establishments as the place of occurrence of the external cause; Y99.8 Other external cause status; I25.10 Atherosclerotic heart disease of native coronary artery without angina pectoris; I10 Essential (primary) hypertension; E11.9 Type 2 diabetes mellitus without complications; Z79.84 Long term (current) use of oral hypoglycemic drugs; Z86.73 Personal history of transient ischemic attack (TIA), and cerebral infarction without residual deficits; I69.898 Other sequelae of other cerebrovascular disease
CPT/HCPCS: 73610-TC-RT-FY; 73630-TC-RT-FY; 99281-25

== ENCOUNTER 2019-08-12 14:56 | Emergency (ER) | payer OTHER ==
[2019-08-12 15:03] VITALS: BMI 30.1
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
[2019-08-12 16:32] LABS: BASO % 1.4 % (0-2.0); EOS % 9.9 % (0-4.5); HEMATOCRIT 36.5 % (35.4-49); HEMOGLOBIN 12.1 GM/dL (11.7-16.9); MCH 29.3 pg (25.7-33.7); MCHC 33.3 g/dl (32.0-35.9); MEAN CELL VOLUME 88.2 fl (80-96); MEAN PLT VOLUME 8.2 fl (7.5-11.1); MONO % 6.7 % (3.8-10.2); PLATELET COUNT 268 K/MM3 (134-434); RBC 4.14 M/mm3 (4.00-5.60); RDW 14.1 % (11.9-15.9); WHITE BLOOD COUNT 5.9 K/mm3 (4.0-10.0)
[2019-08-12 16:33] VITALS: PULSE 88
--- NOTE | 2019-08-12 16:47 | PDOC ---
Documentation entered by Rosa Maria Salgado SCRIBE, acting as scribe for Mohsen Nelson MD. Mohsen Nelson MD: This documentation has been prepared by the laurenibeDamian Maria, SCRIBE, under my direction and personally reviewed by me in its entirety. I confirm that the documentation accurately reflects all work, treatment, procedures, and medical decision making performed by me. Attending Attestation - Resident Resident Name: Emanuel,Maged - ED Attending Attestation I have performed the following: I have examined & evaluated the patient, The case was reviewed & discussed with the resident, I agree w/resident's findings & plan, Exceptions are as noted - HPI HPI: 08/12/19 16:45 54 yo M with h/o HTN, DM, CAD,CVA x 3 ( no residual deficits) ASHD, Prostate Ca (previously on chemo and radiation, last tx 1 month ago) who presents to the ED with 1 day of fever and chills and cough. Pt states the symptoms began yesterday afternoon with a non productive cough and rhinorrhea. Denies CP/SOB. Denies abdominal pain. He denies any recent nausea, vomiting, diarrhea or constipation. He denies any recent dysuria, frequency, urgency or hematuria. - Physicial Exam PE: 08/12/19 16:10 "GENERAL: Awake, alert, and fully oriented, in no acute distress. HEAD: No signs of trauma EYES: PERRLA, EOMI, sclera anicteric, conjunctiva clear ENT: Auricles normal inspection, hearing grossly normal, nares patent, oropharynx clear without exudates. Moist mucosa NECK: Nontender, no stepoffs, Normal ROM, supple, no lymphadenopathy, JVD, or masses LUNGS: Breath sounds equal, clear to auscultation bilaterally. No wheezes, and no crackles HEART: Regular rate and rhythm, normal S1 and S2, no murmurs, rubs or gallops ABDOMEN: Soft, nontender, normoactive bowel sounds. No guarding, no rebound. No masses EXTREMITIES: Normal range of motion, no edema. No clubbing or cyanosis. No cords, erythema, or tenderness NEUROLOGICAL: Cranial nerves II through XII intact. 5/5 strength and sensation in all extremities, Normal speech, normal gait, normal cerebellar function SKIN: Warm, Dry, normal turgor, no rashes or lesions noted. - Medical Decision Making 08/12/19 16:48 54 M with cough, fever, chills. Clear lungs, normal vitals. Suspect viral URI. - Labs - CXR
[2019-08-12 17:00] LABS: ALBUMIN 3.6 g/dl (3.4-5.0); BILIRUBIN,TOTAL 0.2 mg/dL (0.2-1); BLOOD UREA NITROGEN 18.4 mg/dL (7-18); CREATININE 1.1 mg/dL (0.55-1.3); POTASSIUM 4.8 mmol/L (3.5-5.1); TOT PROT 7.5 g/dl (6.4-8.2)
[2019-08-12 17:39] VITALS: BP 139/90; TEMP 98.7
== END 2019-08-12 17:40 | disposition home or self-care (01) ==
LOC: JER 14:56
DX: J06.9 Acute upper respiratory infection, unspecified (principal); B97.89 Other viral agents as the cause of diseases classified elsewhere; I25.10 Atherosclerotic heart disease of native coronary artery without angina pectoris; I10 Essential (primary) hypertension; E11.9 Type 2 diabetes mellitus without complications; Z79.4 Long term (current) use of insulin; E78.5 Hyperlipidemia, unspecified; Z86.73 Personal history of transient ischemic attack (TIA), and cerebral infarction without residual deficits; Z91.013 Allergy to seafood; Z91.02 Food additives allergy status
CPT/HCPCS: 36415; 71046-TC-FY; 80053; 85025; 87804; 99282-25

== ENCOUNTER 2019-09-04 21:02 | Emergency (ER) | payer OTHER ==
[2019-09-04 21:09] VITALS: BP 165/91; PULSE 98; TEMP 98.7; BMI 29.7
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
[2019-09-04 21:54] LABS: BASO % 0.3 % (0-2.0); EOS % 2.8 % (0-4.5); HEMATOCRIT 35.2 % (35.4-49); LYMPH % 19.6 % (8-40); MCH 29.9 pg (25.7-33.7); MCHC 34.2 g/dl (32.0-35.9); MEAN CELL VOLUME 87.4 fl (80-96); MEAN PLT VOLUME 7.8 fl (7.5-11.1); MONO % 11.4 % (3.8-10.2); NEUT % 65.9 % (42.8-82.8); PLATELET COUNT 231 K/MM3 (134-434); RBC 4.02 M/mm3 (4.00-5.60); RDW 13.7 % (11.9-15.9); WHITE BLOOD COUNT 4.5 K/mm3 (4.0-10.0)
[2019-09-04 22:29] LABS: ALBUMIN 3.7 g/dl (3.4-5.0); BILIRUBIN,TOTAL 0.3 mg/dL (0.2-1); BLOOD UREA NITROGEN 22.5 mg/dL (7-18); CALCIUM 8.8 mg/dL (8.5-10.1); CREATININE 1.5 mg/dL (0.55-1.3); POTASSIUM 4.7 mmol/L (3.5-5.1); TOT PROT 7.4 g/dl (6.4-8.2)
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
[2019-09-05] MEDS ORDERED: CLINDAMYCIN HCL 300 MG CAPSULE PO ONE (00:30)
[2019-09-05] MEDS ORDERED: CLINDAMYCIN HCL 150 MG CAPSULE (FP) ONE (00:33)
[2019-09-05] MEDS ORDERED: VALSARTAN 40 MG TABLET (FP) PO ONE (00:48)
== END 2019-09-05 00:41 | disposition home or self-care (01) ==
LOC: JER 21:02
DX: L03.116 Cellulitis of left lower limb (principal); W01.118A Fall on same level from slipping, tripping and stumbling with subsequent striking against other sharp object, initial encounter; Y93.89 Activity, other specified; Y92.89 Other specified places as the place of occurrence of the external cause; Y99.8 Other external cause status; I10 Essential (primary) hypertension; E78.5 Hyperlipidemia, unspecified; E10.9 Type 1 diabetes mellitus without complications; Z79.4 Long term (current) use of insulin; Z85.46 Personal history of malignant neoplasm of prostate; I69.898 Other sequelae of other cerebrovascular disease; H53.8 Other visual disturbances; Z79.02 Long term (current) use of antithrombotics/antiplatelets; Z79.82 Long term (current) use of aspirin; Z91.013 Allergy to seafood; Z91.02 Food additives allergy status; Z91.048 Other nonmedicinal substance allergy status
CPT/HCPCS: 36415; 80053; 85025; 99282-25

== ENCOUNTER 2019-10-24 12:11 | Emergency (ER) | payer OTHER ==
[2019-10-24 12:38] VITALS: BP 158/87; PULSE 86; TEMP 98.7; BMI 29.5
--- NOTE | 2019-10-24 13:27 | PDOC ---
History of Present Illness - General Chief Complaint: Pain Stated Complaint: RT FOOT EDEMA Time Seen by Provider: 10/24/19 12:40 History Source: Patient Exam Limitations: Clinical Condition - History of Present Illness Initial Comments: 10/24/19 13:22 Patient with past medical history of multiple comorbidities, diabetes, hyperlipidemia and hypertension sent with complaint of sudden onset of swelling around right ankle and pain to lateral aspect of right ankle and posterior calf muscle since yesterday night. Patient reported had left lower extremity swelling 2 days ago which resolved after elevating lower extremity and now has right lower extremity swelling. Denies numbness or tingling sensation. Patient report does not recall any trauma or injury to ankle or leg. Denies shortness of breath, palpitations, chest pain. Denies any other symptoms. Patient did not take anything for symptoms Is this a multiple visit Asthma Patient?: No Timing/Duration: 24 hours Past History - Past Medical History Allergies/Adverse Reactions: Allergies Allergy/AdvReac Type Severity Reaction Status Date / Time almond oil Allergy Intermediate Swelling Verified 10/24/19 12:34 blackwood flavor Allergy Intermediate Swelling Verified 10/24/19 12:34 shellfish derived Allergy Intermediate Swelling Verified 10/24/19 12:34 Home Medications: Ambulatory Orders Metformin HCl [Glucophage] 500 mg PO DAILY 08/19/15 Lisinopril [Prinivil] 20 mg PO DAILY 11/04/16 Nitroglycerin [Nitrostat] 0.4 mg SL PRN 11/24/17 Aspirin Coated [Ecotrin -] 81 mg PO DAILY #30 tablet.ec 11/27/17 Clopidogrel Bisulfate [Plavix -] 75 mg PO DAILY #30 tablet 11/27/17 Metoprolol Succinate [Toprol XL -] 50 mg PO DAILY #60 tab.sr.24h 11/27/17 Niacin [Niacin -] 500 mg PO BID #60 tablet 11/27/17 [place]-3 Acid Ethyl Esters [Lovaza -] 2 gm PO BID #60 cap 11/27/17 Rosuvastatin [Crestor -] 20 mg PO HS #30 tablet 11/27/17 Insulin Sliding Scale [Novolog Vial Sliding Scale -] 1 vial SQ ACHS units 11/28/17 Clindamycin [Cleocin -] 300 mg PO QID 7 Days #28 capsule 09/05/19 Cancer: Yes (prostate) Cardiac Disorders: Yes (CAD) CVA: Yes (2 strokes w/ vision loss) COPD: No DVT: No Diabetes: Yes HTN: Yes Hypercholesterolemia: Yes - Surgical History Orthopedic Surgery: Yes (left knee surgery) - Immunization History Immunization Up to Date: Yes - Psycho Social/Smoking Cessation Hx Smoking Status: No Smoking History: Never smoked Have you smoked in the past 12 months: No Number of Cigarettes Smoked Daily: 0 Hx Alcohol Use: Yes Drug/Substance Use Hx: No Substance Use Type: None Hx Substance Use Treatment: No Review of Systems - Review of Systems Able to Perform ROS?: Yes Is the patient limited Surinamese proficient: No Constitutional: No: Chills, Fever, Malaise HEENTM: No: Symptoms Reported, See HPI, Eye Pain, Blurred Vision, Tearing, Recent change in vision, Double Vision, Cataracts, Ear Pain, Ocular Prothesis, Ear Discharge, Nose Pain, Nose Congestion, Tinnitus, Nose Bleeding, Hearing Loss, Throat Pain, Throat Swelling, Mouth Pain, Dental Problems, Difficulty Swallowing, Mouth Swelling, Other Respiratory: No: Symptoms reported, See HPI, Cough, Orthopnea, Shortness of Breath, SOB with Exertion, SOB at Rest, Stridor, Wheezing, Productive cough, Hemoptysis, Other Cardiac (ROS): No: Symptoms Reported, See HPI, Chest Pain, Edema, Irregular Heart Rate, Lightheadedness, Palpitations, Syncope, Chest Tightness, Other ABD/GI: No: Symptoms Reported, See HPI, Constipated, Diarrhea, Nausea, Vomiting, Abdominal cramping : No: Symptoms Reported Musculoskeletal: Yes: Symptoms Reported, Joint Pain (right lateral ankle pain), Joint Swelling (right ankle), Muscle Pain (right calf muscle pain) Integumentary: No: Symptoms Reported Neurological: No: Symptoms reported, Numbness, Tingling, Weakness All Other Systems: Reviewed and Negative *Physical Exam - Vital Signs Last Vital Signs Temp Pulse Resp BP Pulse Ox 98.7 F 86 16 158/87 100 10/24/19 12:35 10/24/19 12:35 10/24/19 12:35 10/24/19 12:35 10/24/19 12:35 - Physical Exam 10/24/19 13:27 GENERAL: Well developed, well nourished. Awake and alert. No acute distress. PULMONARY: No evidence of respiratory distress. MUSCULOSKELETAL : Mild point tenderness to lateral malleolus of right ankle. Mild swelling to right lower extremity with increased swelling around right ankle compared to left ankle. No visible deformity. No calf muscle tenderness. Negative Homans sign SKIN: Warm and dry. Normal capillary refill. Mild skin discoloration around right ankle with no skin erythema NEUROLOGICAL: Alert, awake, appropriate. No motor deficits in the lower extremities. Gait is normal without ataxia. PSYCHIATRIC: Cooperative. Good eye contact. Appropriate mood and affect. General Appearance: Yes: Nourished, Appropriately Dressed. No: Apparent Distress ED Treatment Course - RADIOLOGY Radiology Studies Ordered: Category Date Time Status ANKLE-RIGHT [RAD] Stat Radiology 10/24/19 13:14 Ordered DUPLEX VASCUL US-1 LEG [US] Stat Ultrasound 10/24/19 13:13 Ordered Medical Decision Making - Medical Decision Making 10/24/19 13:23 Patient with past medical history of multiple comorbidities, diabetes, hyperlipidemia and hypertension sent with complaint of sudden onset of swelling around right ankle and pain to lateral aspect of right ankle and posterior calf muscle since yesterday night. Patient reported had left lower extremity swelling 2 days ago which resolved after elevating lower extremity and now has right lower extremity swelling. Denies numbness or tingling sensation. Patient report does not recall any trauma or injury to ankle or leg. Denies shortness of breath, palpitations, chest pain. Denies any other symptoms. Patient did not take anything for symptoms Exam significant for mild swelling to right lower extremity compared to left lower extremity with increased swelling to left ankle on bilateral sides. No pitting edema. Mild skin discoloration around right ankle compared to left ankle. Negative Homans sign. No calf muscle tenderness. No increased warmth or swelling to calf muscle. Patient symptoms likely venous insufficiency versus leg strain versus less likely DVT. Duplex ultrasound ordered of right lower extremity to rule out DVT given complaint of calf muscle pain. X-ray of right ankle ordered to rule out acute ankle abnormality 10/24/19 14:01 Duplex ultrasound shows no DVT acute abnormality. X-ray of right ankle shows soft tissue swelling with no acute fracture or dislocation. Patient symptoms likely ankle sprain or venous insufficiency. Patient stable for discharge to take Motrin as needed for pain with vascular follow-up Discharge - Discharge Information Problems reviewed: Yes Clinical Impression/Diagnosis: Mild peripheral edema Sprain of right ankle Qualifiers: Encounter type: initial encounter Involved ligament of ankle: unspecified ligament Qualified Code(s): S93.401A - Sprain of unspecified ligament of right ankle, initial encounter Condition: Stable Disposition: HOME - Admission No - Follow up/Referral Referrals: Xuan Carlson [Primary Care Provider] - Hansel Ortiz MD [Staff Physician] - - Patient Discharge Instructions Patient Printed Discharge Instructions: DI for Peripheral Edema, Unilateral Additional Instructions: Your ankle x-ray shows mild swelling to ankle which could be related to ankle sprain or venous insufficiency. No DVT was seen on ultrasound of the lower extremity. Take Motrin as needed for pain. Follow-up referred vascular specialist for leg swelling. Keep leg elevated to help with swelling - Post Discharge Activity
== END 2019-10-24 14:06 | disposition home or self-care (01) ==
LOC: JERFT 12:11
DX: R60.0 Localized edema (principal); X58.XXXA Exposure to other specified factors, initial encounter; Y93.89 Activity, other specified; Y92.89 Other specified places as the place of occurrence of the external cause; Y99.8 Other external cause status; S93.401A Sprain of unspecified ligament of right ankle, initial encounter; I25.10 Atherosclerotic heart disease of native coronary artery without angina pectoris; I10 Essential (primary) hypertension; I69.898 Other sequelae of other cerebrovascular disease; H53.8 Other visual disturbances; Z85.46 Personal history of malignant neoplasm of prostate; Z91.013 Allergy to seafood; Z91.02 Food additives allergy status; Z91.048 Other nonmedicinal substance allergy status
CPT/HCPCS: 73610-TC-RT-FY; 93971-TC; 99284-25

== ENCOUNTER 2022-01-04 09:56 | Observation (INO) | payer OTHER ==
[2022-01-04 10:02] VITALS: BMI 30.7
[2022-01-04] MEDS ORDERED: ACETAMINOPHEN 1000 MG/100 ML BAG IVPB ONE (10:28)
[2022-01-04] MEDS ORDERED: SODIUM CHLORIDE 1,000 ML IV STA (10:34)
[2022-01-04] MEDS ORDERED: ACETAMINOPHEN INJECTION 100 ML IVPB ONE (10:36)
[2022-01-04 11:16] LABS: BASO % 0.3 % (0-2.0); EOS % 8.3 % (0-4.5); HEMATOCRIT 30.8 % (35.4-49); HEMOGLOBIN 10.1 GM/dL (11.7-16.9); LYMPH % 16.1 % (8-40); MCHC 32.9 g/dl (32.0-35.9); MEAN CELL VOLUME 85.1 fl (80-96); MEAN PLT VOLUME 8.7 fl (7.5-11.1); MONO % 5.2 % (3.8-10.2); NEUT % 70.1 % (42.8-82.8); PLATELET COUNT 266 10^3/uL (134-434); RBC 3.61 M/mm3 (4.00-5.60); RDW 15.5 % (11.9-15.9); WHITE BLOOD COUNT 7.8 K/mm3 (4.0-10.0)
[2022-01-04 11:33] LABS: CALCIUM 8.6 mg/dL (8.5-10.1)
[2022-01-04 11:34] LABS: ALBUMIN 3.6 g/dl (3.4-5.0); BLOOD UREA NITROGEN 27.2 mg/dL (7-18)
[2022-01-04 11:37] LABS: CREATININE 1.5 mg/dL (0.55-1.3)
[2022-01-04 11:38] LABS: BILIRUBIN,TOTAL 0.4 mg/dL (0.2-1); TOT PROT 7.7 g/dl (6.4-8.2)
[2022-01-04] MEDS ORDERED: KETOROLAC TROMETHAMINE 30 MG/1 ML VIAL IVPUSH ONE (12:07)
[2022-01-04] MEDS ORDERED: LIDOCAINE HCL 1%, 10 MG/ML (50 mL VIAL) SQ ONE (13:03)
[2022-01-04] MEDS ORDERED: LIDOCAINE HCL 4% TOPICAL SOLN (50 ML/BOTTLE) MM ONE (13:03)
[2022-01-04 13:06] LABS: ERYTHROCYTE SEDIMENTATION RATE 73 mm/hr (0-20)
[2022-01-04] MEDS ORDERED: LIDOCAINE HCL 1%, 10 MG/ML (20ML VIAL) ONE (13:12)
[2022-01-04] MEDS ORDERED: KETOROLAC TROMETHAMINE 30 MG/1 ML VIAL ONE (13:12)
[2022-01-04] MEDS ORDERED: LIDOCAINE 2.5%/PRILOCAINE 2.5% (5 Gram/TUBE) TP ONE (13:17)
[2022-01-04 13:47] LABS: URIC ACID 9.8 mg/dL (2.6-7.2)
[2022-01-04] MEDS ORDERED: ACETAMINOPHEN 325 MG TABLET (FP) PO PRN (19:14)
[2022-01-04] MEDS ORDERED: POLYETHYLENE GLYCOL (HEALTHYLAX) 3350 17 GM PACKET PO PRN (19:14)
[2022-01-04] MEDS ORDERED: COLCHICINE 0.6 MG TAB PO ONE ×2 (19:22→19:30)
[2022-01-04] MEDS ORDERED: COLCHICINE 0.6 MG TAB ONE (20:36)
[2022-01-04] MEDS ORDERED: ATORVASTATIN CA 80 MG TABLET (FP) PO SCH (22:00)
[2022-01-04] MEDS: SODIUM CHLORIDE 1,000 ML IV SCH (22:07)
[2022-01-04] MEDS ORDERED: PREGABALIN 25 MG CAPSULE ONE (22:30)
[2022-01-04] MEDS ORDERED: PREGABALIN 50 MG CAPSULE ONE (22:30)
[2022-01-04] MEDS ORDERED: HEPARIN NA (PORCINE) 5,000 UNITS/ML 1ML VIAL ONE (22:31)
[2022-01-04] MEDS ORDERED: ATORVASTATIN CA 80 MG TABLET (FP) ONE (22:31)
[2022-01-04] MEDS: HEPARIN NA (PORCINE) 5,000 UNITS/ML 1ML VIAL SQ SCH (22:40)
[2022-01-04] MEDS: PREGABALIN 75 MG CAPSULE PO SCH (22:41)
[2022-01-04] MEDS: NYSTATIN 100,000 UNIT/GM TOPICAL CREAM 15 GM TUBE TP SCH (22:41)
[2022-01-04] MEDS: INSULIN SLIDING SCALE (NOVOLOG) 1 VIAL SQ SCH (22:42)
[2022-01-05] MEDS: HEPARIN NA (PORCINE) 5,000 UNITS/ML 1ML VIAL SQ SCH ×2 (05:47→14:13)
[2022-01-05] MEDS: INSULIN SLIDING SCALE (NOVOLOG) 1 VIAL SQ SCH ×2 (06:03→11:40)
[2022-01-05] MEDS: SODIUM CHLORIDE 1,000 ML IV SCH (08:31)
[2022-01-05 09:19] LABS: BASO % 1.1 % (0-2.0); EOS % 8.6 % (0-4.5); HEMATOCRIT 27.9 % (35.4-49); HEMOGLOBIN 9.2 GM/dL (11.7-16.9); LYMPH % 20.5 % (8-40); MCH 28.2 pg (25.7-33.7); MCHC 33.1 g/dl (32.0-35.9); MEAN CELL VOLUME 85.2 fl (80-96); MEAN PLT VOLUME 8.6 fl (7.5-11.1); MONO % 5.7 % (3.8-10.2); NEUT % 64.1 % (42.8-82.8); PLATELET COUNT 213 10^3/uL (134-434); RBC 3.28 M/mm3 (4.00-5.60); RDW 15.5 % (11.9-15.9); WHITE BLOOD COUNT 5.7 K/mm3 (4.0-10.0)
[2022-01-05] MEDS: PREGABALIN 75 MG CAPSULE PO SCH (09:51)
[2022-01-05] MEDS ORDERED: COLCHICINE 0.6 MG TAB PO SCH (10:00)
[2022-01-05] MEDS ORDERED: LISINOPRIL 20 MG TABLET PO SCH (10:00)
[2022-01-05] MEDS ORDERED: ALLOPURINOL 100 MG TABLET (FP) PO SCH (10:00)
[2022-01-05 11:21] LABS: PH,URINE 5.5 (5.0-8.0); URINE APPEARANCE CLEAR; URINE BILIRUBIN NEGATIVE (NEGATIVE); URINE COLOR YELLOW; URINE GLUCOSE (UA) NEGATIVE (NEGATIVE); URINE KETONE NEGATIVE (NEGATIVE); URINE LEUK ESTERASE NEGATIVE (NEGATIVE); URINE NITRITE NEGATIVE (NEGATIVE); URINE PROTEIN NEGATIVE (NEGATIVE); URINE UROBILINOGEN 0.2 mg/dL (0.2-1.0)
[2022-01-05] MEDS: NYSTATIN 100,000 UNIT/GM TOPICAL CREAM 15 GM TUBE TP SCH (11:41)
[2022-01-05 13:39] VITALS: BP 129/64; PULSE 79; TEMP 98.4
[2022-01-05] MEDS ORDERED: metFORMIN HCL 500 MG TABLET (FP) PO SCH (22:00)
== END 2022-01-05 16:33 | disposition home or self-care (01) ==
LOC: JER 09:56 → INTOOBSV 23:02 → JERBED 23:02 → UNDOADMOB 23:02 → JERBED 01-05 00:29 → J5S 01-05 00:29 → JERBED 01-05 08:29
PROVIDERS: ADMIT Internal Medicine; ATTEND Nurse Practitioner Acute Care
PROC: 3E033NZ Introduction of Analgesics, Hypnotics, Sedatives into Peripheral Vein, Percutaneous Approach (ICD-10-PCS; principal; 2022-01-05)
PROC: 3E0333Z Introduction of Anti-inflammatory into Peripheral Vein, Percutaneous Approach (ICD-10-PCS; 2022-01-05)
PROC: 3E023GC Introduction of Other Therapeutic Substance into Muscle, Percutaneous Approach (ICD-10-PCS; 2022-01-05)
PROC: 3E0337Z Introduction of Electrolytic and Water Balance Substance into Peripheral Vein, Percutaneous Approach (ICD-10-PCS; 2022-01-05)
DX: N17.9 Acute kidney failure, unspecified (principal); E11.9 Type 2 diabetes mellitus without complications; I25.10 Atherosclerotic heart disease of native coronary artery without angina pectoris; I11.9 Hypertensive heart disease without heart failure; R26.2 Difficulty in walking, not elsewhere classified; Z86.73 Personal history of transient ischemic attack (TIA), and cerebral infarction without residual deficits; Z85.46 Personal history of malignant neoplasm of prostate; R79.89 Other specified abnormal findings of blood chemistry; E66.9 Obesity, unspecified; Z68.30 Body mass index [BMI] 30.0-30.9, adult; M10.9 Gout, unspecified; Z91.018 Allergy to other foods; Z91.013 Allergy to seafood
CPT/HCPCS: 36415; 71046-TC-FY; 73562-TC-LT-FY; 76775-TC; 80053; 81003; 82436; 82570; 82962; 84133; 84300; 84550; 85025; 85651; 86140; 87040; 87086; 93005; 93010; 96361; 96372; 96374; 96375; 97116-GP; 97162-GP; 99285-25; C9803-CS; G0378; J1644; U0003; U0005